=== PATIENT | female | born 1940 | race Caucasian/White ===

== ENCOUNTER → 2021-02-25 07:24 | Outpatient (REF) | payer OTHER, SELFPAY ==
--- NOTE | 2021-02-25 08:45 | CA_ITS ---
Acquisition Time: 2021-02-25 08:45:39 Total Exercise Time: 00:02:35 Test Indications: CP Medications: SEE CHART Protocol: EV Max HR: 155 BPM 109% of Pred: 142 BPM Max BP: 170/060 mmHG Max Work Load: 4.6 METS Exercise stress test with exercise 2 min 35 sec of Ev protocol, with moderate shortness of breath and request to stop exercise, no chest discomfort, with frequent PVCs, with normotensive and brisk chronotropic response to exercise, without EKG changes meeting criteria for ischemia. Test reviewed with Dr De Los Santos. Message sent to her PCP regading results and recommendation for pharm nuclear stress test to further eval for ischemia. Referred By: Anastasia Angel Overread By: TAMELA JUNG
[2021-02-25 11:28] LABS: Hematocrit 42.9 % (37-47); Hemoglobin 13.7 g/dl (12.0-16.0); Mean Corpuscular HGB Conc 31.9 g/dl (31.0-35.0); Mean Corpuscular Hemoglobin 31.2 pg (27.0-33.0); Mean Corpuscular Volume 97.7 fL (80-98); Mean Platelet Volume 11.2 fL (9.4-12.3); Platelet Count 311 X10*3/uL (160-400); Red Blood Count 4.39 X10*6/uL (4.20-5.50); Red Cell Distribution Width 15.7 % (11.0-16.0); White Blood Count 7.9 X10*3/uL (4.8-10.8)
[2021-02-25 11:35] LABS: B Type Natriuretic Peptide 45 pg/mL (<100)
[2021-02-25 11:58] LABS: TSH reflex Free T4 1.39 uIU/mL (0.32-4.0)
[2021-02-25 12:08] LABS: Alanine Aminotransferase 23 U/L (0-31); Albumin Level 4.1 g/dL (3.5-5.0); Alkaline Phosphatase 75 U/L (39-117); Anion Gap 14 (12-20); Aspartate Amino Transferase 45 U/L (5-31); Bilirubin Total 0.6 mg/dL (0.0-1.0); Blood Urea Nitrogen 12 mg/dL (9-16); Calcium 9.6 mg/dL (8.4-10.2); Carbon Dioxide 25 mmol/L (22-29); Chloride 108 mmol/L (96-108); Cholesterol 144 mg/dL; Estimated Glomerular Filt Rate > 60; Glucose Fasting 99 mg/dL (60-99); HDL Cholesterol 53 mg/dL; LDL Cholesterol Calculated 70 mg/dl; Potassium 4.6 mmol/L (3.3-5.1); Sodium 142 mmol/L (135-145); Total Protein 6.7 g/dL (6.5-8.0); Triglycerides 105 mg/dL
== END ==
LOC: HO.CARD 07:24
PROVIDERS: Visit Provider Internal Medicine
DX: R07.89 Other chest pain (principal); I10 Essential (primary) hypertension; E78.5 Hyperlipidemia, unspecified; R60.9 Edema, unspecified
CPT/HCPCS: 36415; 80053; 80061; 83880; 84443; 85027; 93017

== ENCOUNTER → 2021-03-18 09:13 | Outpatient (REF) | payer OTHER, SELFPAY ==
--- NOTE | ~2021-03-18 | NM_ITS ---
Lexiscan Myocardial perfusion study Indication: Chest pain, assess for coronary disease and ischemia Technique: The patient was brought in for a Lexiscan perfusion study on 03/18/2021 and was injected 0.4 mg of Lexiscan intravenously. Within a minute of this injection 35 mCi of sestamibi was given intravenously. Images were obtained using the SPECT gamma camera interlaced with the gating device. Images were obtained in supine position. Resting perfusion study was performed on 03/19/2021. Patient was administered 35 mCi of sestamibi intravenously at rest. Images were then obtained in supine position. Total DLP 196mGy-cm. Images were processed with the software and compared side to side in short axis, horizontal long axis and vertical long axis views. Findings: Raw acquisition was reviewed. Both arms by the patient's side. The stress perfusion study showed diminished tracer uptake along the inferolateral wall. With CT attenuation correction, there is significant improvement suggesting diaphragmatic attenuation artifact. The gated study shows normal LV systolic function with calculated LVEF of 74%. LV cavity is normal in size. The gated study shows normal wall thickening and contraction of segments. Resting study shows slightly diminished tracer uptake in the distal part of lateral wall. This improves with CT attenuation correction suggesting soft tissue or diaphragmatic artifact. Gating at rest reveals normal wall motion with ejection fraction at 63%. The findings are consistent with lateral/inferolateral perfusion defect that appears fixed and most likely artifactual. NM/NM amado perf SPECT rest & str Impression: 1. Myocardial perfusion imaging study shows no definitive evidence of any ischemia or infarction. Likely normal perfusion. 2. Gated LVEF is 74% during stress and 60% during rest. 3. Transient ischemic dilatation not present. EKG component of the test reported separately.
--- NOTE | 2021-03-18 09:16 | CA_ITS ---
Acquisition Time: 2021-03-18 09:31:13 Total Exercise Time: 00:02:00 Test Indications: CP Medications: SEE CHART Protocol: LEXISCAN Max HR: 114 BPM 80% of Pred: 142 BPM Max BP: 140/070 mmHG Max Work Load: 1.0 METS Pharmacological stress test with Lexiscan injection, while sitting and kicking her legs, without anginal symptoms, with isolated PVC, with normotensive response to injection, with nondiagnostic EKG for ischemia. Nuclear images pending. Test reviewed with Dr De Los Santos. Referred By: Anastasia Angel Overread By: TAMELA JUNG
== END ==
LOC: HO.CARD 09:13
PROVIDERS: Visit Provider Internal Medicine
DX: R07.89 Other chest pain (principal)
CPT/HCPCS: 78452; 93017; A9500; J0280; J2785

== ENCOUNTER 2021-10-01 07:57 | Outpatient (REF) | payer MEDICARE, SELFPAY ==
[2021-10-01 11:58] LABS: Hemoglobin 14.5 g/dl (12.0-16.0); Mean Corpuscular HGB Conc 30.9 g/dl (31.0-35.0); Mean Corpuscular Volume 100.4 fL (80.0-98.0); Platelet Count 363 X10*3/uL (160-400); Red Blood Count 4.68 X10*6/uL (4.20-5.50); Red Cell Distribution Width 14.5 % (11.0-16.0); White Blood Count 11.8 X10*3/uL (4.8-10.8)
[2021-10-01 12:15] LABS: Alanine Aminotransferase 26 U/L (0-31); Albumin Level 3.9 g/dL (3.5-5.0); Alkaline Phosphatase 89 U/L (39-117); Anion Gap 14 (12-20); Aspartate Amino Transferase 32 U/L (5-31); Bilirubin Total 0.9 mg/dL (0.0-1.0); Blood Urea Nitrogen 16 mg/dL (9-16); Calcium 9.5 mg/dL (8.4-10.2); Carbon Dioxide 25 mmol/L (22-29); Chloride 106 mmol/L (96-108); Cholesterol 165 mg/dL; Estimated Glomerular Filt Rate > 60; Glucose Fasting 101 mg/dL (60-99); HDL Cholesterol 55 mg/dL; LDL Cholesterol Calculated 87 mg/dl; Potassium 4.6 mmol/L (3.3-5.1); Sodium 140 mmol/L (135-145); Triglycerides 115 mg/dL
== END 2021-10-01 07:58 | disposition home or self-care (01) ==
LOC: HO.HMGCLDS 07:57
PROVIDERS: Visit Provider Internal Medicine
DX: E78.5 Hyperlipidemia, unspecified (principal); I10 Essential (primary) hypertension
CPT/HCPCS: 36415; 80053; 80061; 85027

== ENCOUNTER 2021-12-05 10:00 | Outpatient (RCR) | payer MEDICARE, SELFPAY ==
--- NOTE | 2021-11-15 10:55 | MHC.PT.EP ---
[facility] [place] Office [place] [facility] [place] Office [address] [place] [address] [phone] F: [phone] F: [phone] F: [phone] F: [phone] Physical Therapy Plan of Care Date of Evaluation: Date of Surgery: n/a Diagnosis: B leg weakness Assessment: Patient is a 81 year old female presenting to PT with complaints of B leg weakness. Pt reports onset of pain began a few years ago with worsening in the last 6 months with insidious onset. She presents today with impairments in balance, LE strength, gait mechanics. Pt's current occupation is retired, with baseline physical activities including ambulation, transfers, and stair negotiation. Pt expresses intermediate card tender goal of being able to walk, and is motivated to work towards this in PT. Clinical presentation today is most consistent with signs and sx associated with generalized LE weakness and deconditioning and pt will benefit from skilled PT to address the following problems and impairments noted upon evaluation: balance, LE strength, gait mechanics. These problems limit the patient with the following functional activities: ambulation, stair negotiation, and transfers. The prescribed treatment plan of care is medically necessary. Co-morbidities of HTN, hx B knee replacements, Hx hip replacement, hx back surgery were identified and taken into considerations of plan of care. Pt was educated on HEP, role of PT, prognosis, POC. Frequency and Duration: The patient will be seen 2 x week x 4 weeks Short Term Goals: Pt will demonstrate improved LE strength by 1/3 MMT for improved stability in 2 weeks. Pt will demonstrate ability to handling tech tandem x 20 sec B in 2 weeks for improved balance. Clip On Sunglasses Inspector Goals: Pt will demonstrate ability to perform STS from normal chair height with no use of UE in 4 weeks for improved ability to transfer. Pt will demonstrate ability to negotiate stairs with self reports of improvement in 4 weeks for improved access to her home. Pt will demonstrate improved LEFI score by 9 points in 4 weeks for improved overall functional mobility. Treatment Plan: Modalities to reduce pain, spasms and effusion. Manual therapy to restore motion and function. Therapeutic exercise to improve strength and flexibility. Neuromuscular re-education for posture and balance. Therapeutic activities to return to functional activities of daily living. Electronically signed by: Lizzie Goel, PT, DPT, ATC Please sign and return to therapist. Thank you for your referral.
--- NOTE | 2022-01-14 08:40 | MHC.PT.DC ---
[facility] [place] Office [place] Office [place] Office [address] [place] [address] [phone] F: [phone] F: [phone] F: [phone] F: [phone] Physical Therapy Discharge Report Diagnosis: B leg weakness Date of Surgery: n/a Date of Evaluation: 11/15/21 Date of Discharge: 01/14/22 Treatments to Date: 4 Cancellations to Date: 5 No Shows to Date: 0 Discharge Status: Discharge Summary: Pt had been put on 30 day hold due to family matters. 30 days has passed and pt has not reached out to be scheduled. Pt status unknown at this time. Electronically signed by: Lizzie Goel, PT, DPT, ATC Please sign and return to therapist. Thank you for your referral.
== END 2022-01-14 08:40 | disposition home or self-care (01) ==
LOC: HO.PTCHIC 10:00
PROVIDERS: PCP Internal Medicine; Visit Provider Internal Medicine
DX: R29.898 Other symptoms and signs involving the musculoskeletal system (principal)
CPT/HCPCS: 97110; 97112; 97161; 97530

== ENCOUNTER 2022-01-15 08:33 | Outpatient (REF) | payer MEDICARE, SELFPAY ==
[2022-01-15 11:41] LABS: Alanine Aminotransferase 20 U/L (0-31); Alkaline Phosphatase 92 U/L (39-117); Anion Gap 13 (12-20); Aspartate Amino Transferase 34 U/L (5-31); Bilirubin Total 0.9 mg/dL (0.0-1.0); Blood Urea Nitrogen 12 mg/dL (9-16); Calcium 9.4 mg/dL (8.4-10.2); Carbon Dioxide 26 mmol/L (22-29); Chloride 107 mmol/L (96-108); Estimated Glomerular Filt Rate > 60; Glucose Fasting 109 mg/dL (60-99); Potassium 4.4 mmol/L (3.3-5.1); Sodium 142 mmol/L (135-145); Total Protein 6.8 g/dL (6.5-8.0)
== END 2022-01-15 08:34 | disposition home or self-care (01) ==
LOC: HO.HMGCLDS 08:33
PROVIDERS: PCP Internal Medicine; Visit Provider Internal Medicine
DX: I10 Essential (primary) hypertension (principal)
CPT/HCPCS: 36415; 80053

== ENCOUNTER 2022-07-28 08:43 | Outpatient (REF) | payer MEDICARE, SELFPAY ==
[2022-07-28 11:16] LABS: MANUAL DIFF FLAG NO
[2022-07-28 11:31] LABS: Basophils Absolute Auto 0.1 X10*3/uL (0.0-0.2); Basophils Percent Auto 1.4 % (0-2); Eosinophils Absolute Auto 0.3 X10*3/uL (0.0-0.4); Eosinophils Percent Auto 3.9 % (0-4); Hematocrit 45.6 % (37.0-47.0); Hemoglobin 14.3 g/dl (12.0-16.0); Imm Gran Abs Auto 0.02 X10*3/uL (0.00-0.03); Imm Gran Pct Auto 0.3 % (0.0-0.4); Lymphocytes Absolute Auto 2.3 X10*3/uL (1.2-4.9); Lymphocytes Percent Auto 28.7 % (20-40); Mean Corpuscular HGB Conc 31.4 g/dl (31.0-35.0); Mean Corpuscular Hemoglobin 30.7 pg (27.0-33.0); Mean Corpuscular Volume 97.9 fL (80.0-98.0); Mean Platelet Volume 11.6 fL (9.4-12.3); Monocytes Absolute Auto 0.7 X10*3/uL (0.1-1.2); Monocytes Percent Auto 9.2 % (2-11); Neutrophils Absolute Auto 4.4 x10*3/uL (2.0-8.3); Neutrophils Percent Auto 56.5 % (45-73); Platelet Count 280 X10*3/uL (160-400); Red Blood Count 4.66 X10*6/uL (4.20-5.50); Red Cell Distribution Width 14.4 % (11.0-16.0); White Blood Count 7.9 X10*3/uL (4.8-10.8)
[2022-07-28 11:50] LABS: Alanine Aminotransferase 20 U/L (0-31); Alkaline Phosphatase 74 U/L (39-117); Anion Gap 13 (12-20); Aspartate Amino Transferase 29 U/L (5-31); Bilirubin Total 0.9 mg/dL (0.0-1.0); Blood Urea Nitrogen 13 mg/dL (9-16); Calcium 9.5 mg/dL (8.4-10.2); Carbon Dioxide 25 mmol/L (22-29); Chloride 107 mmol/L (96-108); Cholesterol 141 mg/dL; Estimated Glomerular Filt Rate > 60; Glucose Fasting 104 mg/dL (60-99); HDL Cholesterol 48 mg/dL; LDL Cholesterol Calculated 67 mg/dl; Potassium 4.3 mmol/L (3.3-5.1); Sodium 141 mmol/L (135-145); Total Protein 6.7 g/dL (6.5-8.0); Triglycerides 131 mg/dL
[2022-07-28 12:01] LABS: TSH reflex Free T4 1.56 uIU/mL (0.32-4.0)
== END 2022-07-28 08:44 | disposition home or self-care (01) ==
LOC: HO.HMGCLDS 08:43
PROVIDERS: PCP Internal Medicine; Visit Provider Internal Medicine
DX: E66.9 Obesity, unspecified (principal); E78.5 Hyperlipidemia, unspecified; I10 Essential (primary) hypertension
CPT/HCPCS: 36415; 80053; 80061; 84443; 85025

== ENCOUNTER 2022-10-02 09:35 | Outpatient (REF) | payer MEDICARE, SELFPAY ==
--- NOTE | ~2022-10-02 | XR_ITS ---
EXAMINATION: XR CHEST CLINICAL INFORMATION: Acute bronchitis, unspecified COMPARISON: None available. TECHNIQUE: 2 views of the chest were obtained. FINDINGS: No distinct airspace consolidation or pleural effusion. Pulmonary vascularity does not appear congested. The hilar regions appear unremarkable. There is multilevel thoracic spondylitic change without any distinct compression fractures. There is calcifications observed above the right humeral head in the distribution of the rotator cuff which can be seen in the setting of calcific tendinitis. XR/XR chest 2V IMPRESSION: No definite evidence for acute process. Other incidental findings as noted above.
== END 2022-10-02 09:36 | disposition home or self-care (01) ==
LOC: HO.HMGCX 09:35
PROVIDERS: PCP Internal Medicine; Visit Provider Internal Medicine
DX: J20.9 Acute bronchitis, unspecified (principal); R06.02 Shortness of breath
CPT/HCPCS: 71046

== ENCOUNTER 2023-01-28 08:15 | Outpatient (REF) | payer MEDICARE, SELFPAY ==
[2023-01-28 11:17] LABS: MANUAL DIFF FLAG NO
[2023-01-28 11:38] LABS: Basophils Absolute Auto 0.1 X10*3/uL (0.0-0.2); Basophils Percent Auto 1.1 % (0-2); Eosinophils Absolute Auto 0.3 X10*3/uL (0.0-0.4); Eosinophils Percent Auto 3.3 % (0-4); Hematocrit 43.3 % (37.0-47.0); Imm Gran Abs Auto 0.01 X10*3/uL (0.00-0.03); Imm Gran Pct Auto 0.1 % (0.0-0.4); Lymphocytes Absolute Auto 2.2 X10*3/uL (1.2-4.9); Lymphocytes Percent Auto 25.6 % (20-40); Mean Corpuscular HGB Conc 32.3 g/dl (31.0-35.0); Mean Corpuscular Hemoglobin 32.2 pg (27.0-33.0); Mean Corpuscular Volume 99.5 fL (80.0-98.0); Mean Platelet Volume 12.3 fL (9.4-12.3); Monocytes Absolute Auto 0.6 X10*3/uL (0.1-1.2); Monocytes Percent Auto 7.3 % (2-11); Neutrophils Absolute Auto 5.3 x10*3/uL (2.0-8.3); Neutrophils Percent Auto 62.6 % (45-73); Platelet Count 273 X10*3/uL (160-400); Red Blood Count 4.35 X10*6/uL (4.20-5.50); Red Cell Distribution Width 15.3 % (11.0-16.0); White Blood Count 8.4 X10*3/uL (4.8-10.8)
[2023-01-28 12:27] LABS: B Type Natriuretic Peptide 160 pg/mL (<100)
[2023-01-28 12:42] LABS: Alanine Aminotransferase 25 U/L (0-31); Albumin Level 3.8 g/dL (3.5-5.0); Alkaline Phosphatase 76 U/L (39-117); Anion Gap 15 (12-20); Aspartate Amino Transferase 33 U/L (5-31); Bilirubin Total 1.3 mg/dL (0.0-1.0); Blood Urea Nitrogen 14 mg/dL (9-16); Carbon Dioxide 24 mmol/L (22-29); Chloride 109 mmol/L (96-108); Cholesterol 141 mg/dL; Estimated Glomerular Filt Rate > 60; Glucose Fasting 100 mg/dL (60-99); HDL Cholesterol 55 mg/dL; LDL Cholesterol Calculated 67 mg/dl; Potassium 4.3 mmol/L (3.3-5.1); Sodium 144 mmol/L (135-145); TSH reflex Free T4 1.83 uIU/mL (0.32-4.0); Total Protein 6.8 g/dL (6.5-8.0); Triglycerides 97 mg/dL; Vitamin D 25-OH Total 44.1 ng/mL (>30)
== END 2023-01-28 08:16 | disposition home or self-care (01) ==
LOC: HO.HMGCLDS 08:15
PROVIDERS: PCP Internal Medicine; Visit Provider Internal Medicine
DX: Z00.00 Encounter for general adult medical examination without abnormal findings (principal); E55.9 Vitamin D deficiency, unspecified; E78.5 Hyperlipidemia, unspecified; L30.9 Dermatitis, unspecified; M19.90 Unspecified osteoarthritis, unspecified site; I10 Essential (primary) hypertension
CPT/HCPCS: 36415; 80053; 80061; 82306; 83880; 84443; 85025

== ENCOUNTER 2023-02-10 10:05 | Outpatient (AMB) | payer MEDICARE, SELFPAY ==
--- NOTE | 2023-02-10 10:07 | MHC.PC.OV ---
Vital Signs 02/10/23 10:08 Height 5 ft 4 in Weight 236 lb BMI 40.5 BP 118/66 Blood Pressure Location Lt brachial Position Sitting Pulse 63 Pulse Source Pulse Oximeter Pulse Oximetry (%) 99 Oxygen Delivery Method Room Air Intake Visit Reasons: 6 month Follow up HTN Intake Note: Pt is here today for 6 months follow up visit. Allergies ciprofloxacin [From Cipro] Allergy (Verified 02/10/23 10:09) vomiting oxybutynin Allergy (Verified 02/10/23 10:09) rash Sulfa (Sulfonamide Antibiotics) Allergy (Verified 02/10/23 10:09) rash Medication List - Last Reconciled 02/10/23 by Anastasia Angel MD amlodipine 5 mg PO DAILY atorvastatin 20 mg PO DAILY ketoconazole 2% 1 appl topical DAILY nystatin 1 appl topical BID spironolactone 12.5 mg (1/2 x 25 mg) PO DAILY triamcinolone acetonide 0.025% 1 appl topical BID valsartan 160 mg PO DAILY Tobacco use date assessed: 02/10/23 Fall risk assessment: No Falls in past year Last assessed Fall Risk: 02/10/23 Dental Screening Dental Screen Date: 02/10/23 Did you have a dental visit in the last 12 months?: Yes Did you have a dental problem in the last 6 months where you did not have access to dental care?: No Was dental information given to patient?: Patient has dentist HPI 6 month Follow up HTN HPI Details Pt presents for HTN and hyperlipid, stable on meds. Pt c/o night sweats on and off and occasional feeling of choking and the feeling of fullness in the neck when laying down. Patient denies cough or weight loss. She c/o HUTTON getting worse. [facility] Medical History Annual physical exam Broken wrist Burning chest pain Edema HTN (hypertension) Hyperlipidemia Leg weakness, bilateral Obesity Osteoarthritis Spinal stenosis of lumbar region Surgical History H/O colonoscopy H/O: hysterectomy History of carpal tunnel surgery History of right knee joint replacement History of total left knee replacement S/P cholecystectomy Family History Father Hypertension Mother Hypertension A-fib Sister Substance use disorder Social History Household Members Other:: lives alone, 2 daughters Housing: House Patient Tobacco Use Status: Former Tobacco user Quit Date: 36 years ago e-Cigarette/Vaping Use: Never Used Current occupational status: retired Cognitive needs: No Hearing needs: No Vision needs: Yes Questionnaire Thrive Questionnaire Date Thrive assessed: 08/13/22 AUDIT C Alcohol Use Questionnaire (AUDIT-C) 1. How often do you have a drink containing alcohol?: Never 3. How often do you have six or more drinks on one occasion?: Never Total Score: 0 DAVEY-7 AMB Questionnaire DAVEY-7 Date DAVEY - 7 assessed: 08/13/22 Source: Developed by Drs. Federico Wilburn, Mary Tillman, Claude Sullivan and colleagues, with an educational ezra from [employer]. Review of Systems Const All systems reviewed & are unremarkable except as noted in HPI and below Reports no additional complaints Eyes Reports no additional complaints ENT Reports no additional complaints Card Reports no additional complaints Resp Reports no additional complaints GI Reports no additional complaints Physical exam (Primary Care) Vital Signs: Last Vital Signs Pulse 63 02/10/23 10:08 BP 118/66 02/10/23 10:08 Pulse Ox 99 02/10/23 10:08 Oxygen Delivery Method Room Air 02/10/23 10:08 BMI result Body Mass Index 40.5 Tobacco/Smoking Status: Tobacco use Status Tobacco use date assessed 02/10/23 02/10/23 10:13 Patient Tobacco Use Status Former Tobacco user 02/10/23 10:13 e-Cigarette/Vaping Use Never Used 02/10/23 10:13 Thrive Assessment: Date of Thrive Assessment Date Thrive assessed 08/13/22 02/10/23 10:13 Const General: no acute distress HENMT Head: Yes normal to inspection Face and sinus: Yes normal facial exam Mouth: Normal oral and palatal mucosa present Neck Other: L supraclavicular region fullness, enlarged thyroid Neck: Yes supple Resp Effort & Inspection: normal respiratory effort Auscultation: diminished lung sounds Cardio Rhythm: abnormal rhythm regularly irregular Heart sounds: S1 normal heart sound present and S2 normal heart sound present GI Palpation (GI): Soft to palpation Extrem Other: +3 nonpitting edema bilaterally Assessment and Plan Assessment & Plan (1) Supraclavicular adenopathy: Code(s): R59.0 - Localized enlarged lymph nodes Plan: Obtain neck ultrasound (2) Shortness of breath: Code(s): R06.02 - Shortness of breath Plan: Obtain echocardiogram (3) Arrhythmia: Code(s): I49.9 - Cardiac arrhythmia, unspecified Plan: EKG showed NSR, frequent PVC's, bigeminy (4) CHF (congestive heart failure): Code(s): I50.9 - Heart failure, unspecified Plan: check Echo, add 12.5 mg Spironolactone (5) HTN (hypertension): Code(s): I10 - Essential (primary) hypertension Plan: cont meds. f/u 5 weeks Orders: Orders US soft tiss head and/or neck Today R59.0 - Localized enlarged lymph nodes XR chest 2V Today R06.02 - Shortness of breath CA echo transthoracic complete Today I49.9 - Cardiac arrhythmia, unspecified, I50.9 - Heart failure, unspecified, R06.02 - Shortness of breath ECG holter monitor 48 hour Today I49.9 - Cardiac arrhythmia, unspecified Medications: New spironolactone 12.5 mg (1/2 x 25 mg) PO DAILY 30 tabs 1RF Coding Level of Care Code Est Pt Level 4 (80380) Diagnoses Supraclavicular adenopathy R59.0 Shortness of breath R06.02 Arrhythmia I49.9 CHF (congestive heart failure) I50.9 HTN (hypertension) I10
[2023-02-10 10:08] VITALS: BP 118/66; PULSE 63; O2SAT 99; BMI 40.5
== END 2023-02-10 10:56 | disposition home or self-care (01) ==
PROVIDERS: Visit Provider Internal Medicine
DX: R59.0 Localized enlarged lymph nodes (principal); I11.0 Hypertensive heart disease with heart failure; I50.9 Heart failure, unspecified; R06.02 Shortness of breath; I49.9 Cardiac arrhythmia, unspecified
CPT/HCPCS: 99214

== ENCOUNTER 2023-02-10 10:55 | Outpatient (REF) | payer MEDICARE, SELFPAY ==
--- NOTE | ~2023-02-10 | XR_ITS ---
EXAMINATION: XR CHEST CLINICAL INFORMATION: Shortness of breath. COMPARISON: 10/02/2022 chest radiographs. TECHNIQUE: 2 views of the chest were obtained. FINDINGS: No significant abnormality is noted involving the heart, lungs, mediastinum, bony thorax or soft tissues. XR/XR chest 2V IMPRESSION: No acute cardiopulmonary process.
== END 2023-02-10 10:56 | disposition home or self-care (01) ==
LOC: HO.HMGCX 10:55
PROVIDERS: PCP Internal Medicine; Visit Provider Internal Medicine
DX: R06.02 Shortness of breath (principal)
CPT/HCPCS: 71046

== ENCOUNTER 2023-02-16 08:57 | Outpatient (REF) | payer MEDICARE, SELFPAY ==
--- NOTE | ~2023-02-16 | US_ITS ---
EXAMINATION: US SOFT TISSUE HEAD/NECK CLINICAL INFORMATION: Localized enlarged lymph nodes. Normal sized lump that comes and goes and gives patient choking sensation. COMPARISON: None available. TECHNIQUE: Linear transducer grayscale and color Doppler examination of the right neck per patient with left neck also scanned for comparison. FINDINGS: Limited imaging to the right neck level 3 where patient feels a lump there is no visible lymph node, mass or soft tissue abnormality. US/US soft tiss head and/or neck IMPRESSION: No ultrasound abnormality seen along the right neck where patient feels a palpable on and off lump. Further evaluation with limited CT neck or barium swallow if related to swallowing.
== END 2023-02-16 08:58 | disposition home or self-care (01) ==
LOC: HO.HMGCX 08:57
PROVIDERS: PCP Internal Medicine; Visit Provider Internal Medicine
DX: R59.0 Localized enlarged lymph nodes (principal)
CPT/HCPCS: 76536

== ENCOUNTER → 2023-03-11 09:26 | Outpatient (REF) | payer MEDICARE, SELFPAY ==
--- NOTE | 2023-03-11 09:28 | CA_ITS ---
Transthoracic Echocardiogram Patient (Last, First, Middle): Mary Ledezma, Gender: Female Date of : 1940 Age: 82 Procedure Date: 03/11/2023 Procedure Type: Transthoracic Echocardiogram Location: OP Height: 162.56 cm Weight: 104.33 kg BSA: 2.08 m2 Heart Rate: bpm BP: 150 / 60 mmHg Medical Appliance Maker: TO Referring MD: Anastasia Angel MD Symptoms: I49.9 - Cardiac arrhythmia, unspecified Study Quality: Fair ECG Rhythm: Sinus with PVCs Conclusions: - The left ventricular systolic function is normal. The calculated ejection fraction is 60% by biplane method. - Moderate focal hypertrophy of basal septum. - No obvious valvular pathology seen on this study. Findings Left Ventricle Normal left ventricular cavity size. The left ventricular systolic function is normal. The calculated ejection fraction is 60% by biplane method. There is no evidence of regional wall motion abnormalities. Diastolic function is normal for age. Moderate focal hypertrophy of basal septum. Right Ventricle Normal right ventricular cavity size and systolic function. Atria Both atria are normal in size. Aortic Valve There is a normal trileaflet aortic valve. There is no aortic valve stenosis. There is no aortic valve regurgitation. Mitral Valve The mitral valve appears normal. There is trace mitral valve regurgitation. There is no mitral valve stenosis. Pulmonic Valve The pulmonic valve is likely normal. Tricuspid Valve Normal tricuspid valve structure. There is trace tricuspid valve regurgitation. There is no evidence of pulmonary hypertension. Great Vessels The asc aorta is normal in size. Venous The inferior vena cava is normal in size and collapses greater than 50% with inspiration. Pericardium/Pleural There is no evidence of pericardial effusion. Prior Study Comparison No prior study available for comparison. Recommendations, Care & Conclusions No obvious valvular pathology seen on this study. Measurements 2D Linear Measurements IVSd: 1.47 0.6-0.9/0.6-1.0 cm LVIDd: 4.51 3.9-5.3/4.2-5.9 cm LVIDd Index: 2.17 2.4-3.2/2.2-3.1 cm/m2 LVIDs: 2.91 2.0-3.6 cm LVPWd: 1.06 0.7-1.1 cm LA Diam: 4.00 2.7-3.8/3.0-4.0 cm LAIDs Index: 1.92 1.5-2.3 cm/m2 LV Mass: 267.47 67-162/88-224 g LV Mass Index: 128.59 43-95/49-115 g/m2 LVOT Diam: 2.00 3.0+(-)1.3 cm 2D Systolic Function EF 4C: 60.00 >55% EF 2C: 63.60 >55% EF BiP: 60.30 >55% Mitral Valve MV Pk E: 0.69 MV PK A: 0.85 MV Decel Time: 160.00 E/A: 0.80 E'Lateral: 5.11 E/E' Lat: 13.60 PHT: 47.00 MVA PHT: 4.68 Decel Crook: 4.33 Aortic Valve AoV Pk Nickolas: 1.28 AoV Pk Grad: 7.00 LVOT LVOT Pk Nickolas: 0.77 LVOT Mn Nickolas: 0.51 LVOT VTI: 0.17 LVOT Pk Grad: 2.00 LVOT Mn Grad: 1.00 LVOT Diam: 2.00 LVOT Area: 3.14 Diastolic Function MV Pk E: 0.69 MV Pk A: 0.85 E/A: 0.80 E' Laterial: 5.11 E/E' Lat: 13.60 Right Ventricle TAPSE (mm): 20.90 TVS' Nickolas: 13.70 Tricuspid Valve RA Press: 3.00 Great Vessels Aorta Sinus of Valsalva: 2.75 2.0-3.5 cm Ao Asc: 3.30 2.1-3.4 cm Updated in Other Vendor System with Status of Final Kory Ortega MD electronically signed on 03/12/2023 4:51:12 PM with status of Final
--- NOTE | 2023-03-11 09:28 | HM_ITS ---
Conclusion: 1. Patient was monitored for total period of 2 days and 2 hours 2. Baseline was normal sinus rhythm with average heart of 90 beats per minute 3. Frequent mostly isolated PVCs noted with total burden of 16.8% 4. Occasional PACs noted 5. No significant pauses noted 6. Patient activated the counter 3 times without any clear symptoms associated which correlated with PVCs MTDD
== END ==
LOC: HO.CARD 09:26
PROVIDERS: PCP Internal Medicine; Visit Provider Internal Medicine
DX: I49.9 Cardiac arrhythmia, unspecified (principal); I50.9 Heart failure, unspecified; R06.02 Shortness of breath
CPT/HCPCS: 93225; 93306

== ENCOUNTER → 2023-03-11 09:28 | Outpatient (BNV) | payer MEDICARE, SELFPAY | PROVIDERS: PCP Internal Medicine; Visit Provider Internal Medicine | DX: I49.3 Ventricular premature depolarization (principal) | CPT/HCPCS: 93227; 93306 ==

== ENCOUNTER 2023-03-31 08:55 | Outpatient (AMB) | payer MEDICARE, SELFPAY ==
--- NOTE | 2023-03-31 08:55 | A.OFFPC_ITS ---
Vital Signs 03/31/23 08:56 Height 5 ft 4 in Weight 241 lb BMI 41.4 BP 118/66 Blood Pressure Location Lt brachial Position Sitting Pulse 58 Pulse Source Pulse Oximeter Pulse Oximetry (%) 97 Oxygen Delivery Method Room Air Intake Visit Reasons: 5 week fu Intake Note: Pt is here today for 5 weeks follow up visit. Allergies ciprofloxacin [From Cipro] Allergy (Verified 03/31/23 08:58) vomiting oxybutynin Allergy (Verified 03/31/23 08:58) rash Sulfa (Sulfonamide Antibiotics) Allergy (Verified 03/31/23 08:58) rash spironolactone Adverse Reaction (Intermediate, Verified 03/31/23 09:19) dry mouth Medication List - Last Reconciled 03/31/23 by Anastasia Angel MD amlodipine 5 mg PO DAILY atorvastatin 20 mg PO DAILY ketoconazole 2% 1 appl topical DAILY nystatin 1 appl topical BID triamcinolone acetonide 0.025% 1 appl topical BID valsartan 160 mg PO DAILY Tobacco use date assessed: 02/10/23 HPI 5 week fu HPI Details Pt presents for f/u of HTN, hyperlipid. Pt c/o chronic LBP worse when walking. Patient has been sleeping in the recliner in reports worsening lower extremity swelling. She could not tolerate spironolactone developed dry mouth and dizziness. Echocardiogram and Holter monitor were without significant abnormalities. [facility] Medical History (Updated 03/31/23 @ 09:47 by Anastasia Angel MD) Leg weakness, bilateral Annual physical exam Spinal stenosis of lumbar region Burning chest pain Edema Obesity Hyperlipidemia Osteoarthritis HTN (hypertension) Broken wrist Surgical History H/O colonoscopy History of carpal tunnel surgery History of right knee joint replacement History of total left knee replacement H/O: hysterectomy S/P cholecystectomy Family History Father Hypertension Mother Hypertension A-fib Sister Substance use disorder Social History Household Members Other:: lives alone, 2 daughters Housing: House Patient Tobacco Use Status: Former Tobacco user Quit Date: 36 years ago e-Cigarette/Vaping Use: Never Used Current occupational status: retired Cognitive needs: No Hearing needs: No Vision needs: Yes Questionnaire Thrive Questionnaire Date Thrive assessed: 08/13/22 DAVEY-7 AMB Questionnaire DAVEY-7 Date DAVEY - 7 assessed: 08/13/22 Source: Developed by Drs. Federico Wilburn, Mary Tillman, Claude Sullivan and colleagues, with an educational ezra from [employer]. Review of Systems Const All systems reviewed & are unremarkable except as noted in HPI and below Reports no additional complaints Eyes Reports no additional complaints ENT Reports no additional complaints Card Reports no additional complaints Resp Reports no additional complaints GI Reports no additional complaints Reports no additional complaints Physical exam (Primary Care) Vital Signs: Last Vital Signs Pulse 58 03/31/23 08:56 BP 118/66 03/31/23 08:56 Pulse Ox 97 03/31/23 08:56 Oxygen Delivery Method Room Air 03/31/23 08:56 BMI result Body Mass Index 41.4 Tobacco/Smoking Status: Tobacco use Status Tobacco use date assessed 02/10/23 03/31/23 08:56 Patient Tobacco Use Status Former Tobacco user 03/31/23 08:56 e-Cigarette/Vaping Use Never Used 03/31/23 08:56 Thrive Assessment: Date of Thrive Assessment Date Thrive assessed 08/13/22 03/31/23 08:56 Const General: no acute distress HENMT Head: Yes normal to inspection Ears: hearing grossly normal bilaterally Face and sinus: Yes normal facial exam Mouth: Normal oral and palatal mucosa present Throat: Yes posterior oropharynx normal Eyes General: appearance normal, both eyes and all related structures Neck Neck: Yes no lymphadenopathy and Yes supple Resp Effort & Inspection: normal respiratory effort Auscultation: clear to auscultation bilaterally Cardio Rhythm: regular rhythm Heart sounds: S1 normal heart sound present and S2 normal heart sound present GI Inspection: Yes normal to inspection Palpation (GI): Soft to palpation Percussion: Yes normal to percussion Auscultation: normal bowel sounds Extrem Other: 2+ pitting edema bilaterally Assessment and Plan Assessment & Plan (1) CHF (congestive heart failure): Comment: Echo 03/11 nl EF, no valve abnormalities, 2 days Holter occasional PVCs. Code(s): I50.9 - Heart failure, unspecified Plan: Continue valsartan (2) Spinal stenosis of lumbar region: Code(s): M48.061 - Spinal stenosis, lumbar region without neurogenic claudication Plan: Follow-up with pain management, patient was advised to increase physical activity and lose weight (3) Hyperlipidemia: Code(s): E78.5 - Hyperlipidemia, unspecified Plan: Continue statin (4) HTN (hypertension): Code(s): I10 - Essential (primary) hypertension Plan: Blood pressure is low and amlodipine will be decreased to 2.5 mg a day. Follow- up in 3 months Medications: New amlodipine 2.5 mg PO DAILY 90 tabs 1RF Discontinued amlodipine Discontinued Reason: Doctor's Order 5 mg PO DAILY 90 tabs 3RF Coding Level of Care Code Est Pt Level 4 (79051) Diagnoses CHF (congestive heart failure) I50.9 Spinal stenosis of lumbar region M48.061 Hyperlipidemia E78.5 HTN (hypertension) I10
[2023-03-31 08:56] VITALS: BP 118/66; PULSE 58; O2SAT 97; BMI 41.4
== END 2023-03-31 09:32 | disposition home or self-care (01) ==
PROVIDERS: PCP Internal Medicine; Visit Provider Internal Medicine
DX: I11.0 Hypertensive heart disease with heart failure (principal); I50.9 Heart failure, unspecified; M48.061 Spinal stenosis, lumbar region without neurogenic claudication; E78.5 Hyperlipidemia, unspecified
CPT/HCPCS: 99214

== ENCOUNTER 2023-06-18 09:19 | Outpatient (AMB) | payer MEDICARE, SELFPAY ==
[2023-06-18 11:06] VITALS: BP 140/80; PULSE 94; TEMP 36.6; O2SAT 97; BMI 40.8
--- NOTE | 2023-06-18 11:06 | MHC.OFFWIV ---
Intake Vital Signs 06/18/23 11:06 Height 5 ft 4 in Weight 238 lb BMI 40.8 BP 140/80 H Blood Pressure Location Lt brachial Position Sitting Pulse 94 Pulse Source Pulse Oximeter Temp 97.8 F Pulse Oximetry (%) 97 Oxygen Delivery Method Room Air Intake Visit Reasons: EP, scrape to right hand Intake Note: pt is here today for scrape to rt hand fell on thursday Patient Tobacco Use Status: Former Tobacco user Quit Date: 36 years ago Allergies ciprofloxacin [From Cipro] Allergy (Verified 06/18/23 11:07) vomiting oxybutynin Allergy (Verified 06/18/23 11:07) rash Sulfa (Sulfonamide Antibiotics) Allergy (Verified 06/18/23 11:07) rash spironolactone Adverse Reaction (Intermediate, Verified 06/18/23 11:07) dry mouth Do you need a note to return to daycare/school/sports/work: No HPI HPI Comments History of Present Illness Details This is a an 82-year-old female with a past medical history of CHF, hypertension and hyperlipidemia presenting for evaluation of wound to her right hand that occurred on Thursday. Patient states she was walking to [employer] when she tripped and fell to the ground causing a skin tear to her right hand. Patient comes today because she is concerned that it may be infected. Patient has been using bacitracin daily. [facility] Medical History Leg weakness, bilateral Annual physical exam Spinal stenosis of lumbar region Burning chest pain Edema Obesity Hyperlipidemia Osteoarthritis HTN (hypertension) Broken wrist Surgical History H/O colonoscopy H/O: hysterectomy History of carpal tunnel surgery History of right knee joint replacement History of total left knee replacement S/P cholecystectomy Family History Father Hypertension Mother Hypertension A-fib Sister Substance use disorder Social History Household Members Other:: lives alone, 2 daughters Housing: House Patient Tobacco Use Status: Former Tobacco user Quit Date: 36 years ago e-Cigarette/Vaping Use: Never Used Current occupational status: retired Cognitive needs: No Hearing needs: No Vision needs: Yes Review of Systems Const All systems reviewed & are unremarkable except as noted in HPI and below Denies chills and Denies fever(s) Musc Reports no additional complaints Skin/Breast Reports non-healing lesions, Reports erythema and Reports wounds (right hand) Neuro Reports no additional complaints Physical Exam Vital Signs: Last Vital Signs Temp 97.8 F 06/18/23 11:06 Pulse 94 06/18/23 11:06 BP 140/80 H 06/18/23 11:06 Pulse Ox 97 06/18/23 11:06 Oxygen Delivery Method Room Air 06/18/23 11:06 BMI result Body Mass Index 40.8 Const General: cooperative, healthy appearing, comfortable and no acute distress Nutritional Appearance: average body habitus Orientation/consciousness: patient oriented x3 Limitations: no limitations Skin Other: 4cm x 2.5cm skin tear located on the dorsal surface of the right hand overlying the 2nd metacarpal with surrounding ecchymosis; no erythema, edema, exudates or tenderness to examination. Wounds: wounds noted (right hand dorsal surface) Neuro General: patient oriented x3 Extrem Right upper extremity: Extremity exam: right hand (wound as previously noted; ROM intact right wrist and digits of right hand.) Details: normal capillary refill, neuromotor exam normal and neurosensory exam normal Assessment & Plan Assessment & Plan (1) Skin tear of right hand without complication: Code(s): S61.411A - Laceration without foreign body of right hand, initial encounter Plan: Patient will continue keeping this lesion clean with soap and water daily and applying Bacitracin twice daily. There is no active infection noted on clinical examination and therefore oral antibiotics are not warranted at this time. Coding Level of Care Code Est Pt Level 3 (03620) Diagnoses Skin tear of right hand without complication S61.411A Time Spent (min) 20
== END 2023-06-18 11:48 | disposition home or self-care (01) ==
PROVIDERS: PCP Internal Medicine; Visit Provider Physician Assistant
DX: S61.411A Laceration without foreign body of right hand, initial encounter (principal)
CPT/HCPCS: 99213

== ENCOUNTER 2023-07-02 10:11 | Outpatient (AMB) | payer MEDICARE, SELFPAY ==
[2023-07-02 10:15] VITALS: BP 120/78; PULSE 86; O2SAT 97; BMI 40.5
--- NOTE | 2023-07-02 10:15 | A.OFFPC_ITS ---
Vital Signs 07/02/23 10:15 Height 5 ft 4 in Weight 236 lb BMI 40.5 BP 120/78 Blood Pressure Location Lt brachial Position Sitting Pulse 86 Pulse Source Pulse Oximeter Pulse Oximetry (%) 97 Oxygen Delivery Method Room Air Intake Visit Reasons: 3 month follow up Intake Note: Pt is here today for 3 months follow up visit. Allergies ciprofloxacin [From Cipro] Allergy (Verified 07/02/23 10:15) vomiting oxybutynin Allergy (Verified 06/18/23 11:07) rash Sulfa (Sulfonamide Antibiotics) Allergy (Verified 07/02/23 10:15) rash gabapentin Adverse Reaction (Intermediate, Verified 07/02/23 11:03) Dizziness spironolactone Adverse Reaction (Intermediate, Verified 07/02/23 10:15) dry mouth Medication List - Last Reconciled 07/02/23 by Anastasia Angel MD amlodipine 2.5 mg PO DAILY atorvastatin 20 mg PO DAILY ketoconazole 2% 1 appl topical DAILY nystatin 1 appl topical BID triamcinolone acetonide 0.025% 1 appl topical BID valsartan 160 mg PO BID Tobacco use date assessed: 07/02/23 Fall risk assessment: 1 Fall in past year Last assessed Fall Risk: 07/02/23 Dental Screening Dental Screen Date: 07/02/23 Did you have a dental visit in the last 12 months?: Yes Did you have a dental problem in the last 6 months where you did not have access to dental care?: No Was dental information given to patient?: Patient has dentist HPI 3 month follow up HPI Details Pt presents for f/u HTN, HFpEF, lumbar spinal stenosis, getting cortisone inj. PFSH Medical History Leg weakness, bilateral Annual physical exam Spinal stenosis of lumbar region Burning chest pain Edema Obesity Hyperlipidemia Osteoarthritis HTN (hypertension) Broken wrist Surgical History H/O colonoscopy H/O: hysterectomy History of carpal tunnel surgery History of right knee joint replacement History of total left knee replacement S/P cholecystectomy Family History Father Hypertension Mother Hypertension A-fib Sister Substance use disorder Social History Household Members Other:: lives alone, 2 daughters Housing: House Patient Tobacco Use Status: Former Tobacco user Quit Date: 36 years ago e-Cigarette/Vaping Use: Never Used Current occupational status: retired Cognitive needs: No Hearing needs: No Vision needs: Yes Questionnaire Thrive Questionnaire Date Thrive assessed: 08/13/22 DAVEY-7 AMB Questionnaire DAVEY-7 Date DAVEY - 7 assessed: 08/13/22 Source: Developed by Drs. Federico Wilburn, Mary Tillman, Claude Sullivan and colleagues, with an educational ezra from [employer]. Review of Systems Const All systems reviewed & are unremarkable except as noted in HPI and below Reports no additional complaints Eyes Reports no additional complaints ENT Reports no additional complaints Card Reports no additional complaints Resp Reports no additional complaints GI Reports no additional complaints Physical exam (Primary Care) Vital Signs: Last Vital Signs Pulse 86 07/02/23 10:15 BP 120/78 07/02/23 10:15 Pulse Ox 97 07/02/23 10:15 Oxygen Delivery Method Room Air 07/02/23 10:15 BMI result Body Mass Index 40.5 Tobacco/Smoking Status: Tobacco use Status Tobacco use date assessed 07/02/23 07/02/23 10:26 Patient Tobacco Use Status Former Tobacco user 07/02/23 10:15 e-Cigarette/Vaping Use Never Used 07/02/23 10:15 Thrive Assessment: Date of Thrive Assessment Date Thrive assessed 08/13/22 07/02/23 10:15 Const General: no acute distress HENMT Head: Yes normal to inspection Mouth: Normal oral and palatal mucosa present Neck Neck: Yes supple Resp Effort & Inspection: normal respiratory effort Auscultation: clear to auscultation bilaterally Cardio Rhythm: regular rhythm Heart sounds: S1 normal heart sound present and S2 normal heart sound present GI Inspection: Yes normal to inspection Palpation (GI): Soft to palpation Percussion: Yes normal to percussion Auscultation: normal bowel sounds Assessment and Plan Assessment & Plan (1) CHF (congestive heart failure): Comment: Echo 03/11 nl EF, no valve abnormalities, 2 days Holter occasional PVCs. Code(s): I50.9 - Heart failure, unspecified Plan: Increase losartan to 160 twice a day check basic metabolic panel in 1 week, patient was advised to monitor her weight daily (2) HTN (hypertension): Code(s): I10 - Essential (primary) hypertension Plan: Increase losartan to 160 twice a day continue amlodipine (3) Hyperlipidemia: Code(s): E78.5 - Hyperlipidemia, unspecified Plan: Continue atorvastatin (4) Spinal stenosis of lumbar region: Code(s): M48.061 - Spinal stenosis, lumbar region without neurogenic claudication Plan: Follow-up with neurosurgeon/pain management Orders: Orders Comprehensive Met. Panel 1 Week E78.5 - Hyperlipidemia, unspecified, I10 - Essential (primary) hypertension, I50.9 - Heart failure, unspecified, M48.061 - Spinal stenosis, lumbar region without neurogenic claudication Medications: Changed From valsartan 160 mg PO DAILY 90 tabs 3RF To valsartan 160 mg PO BID 180 tabs 3RF Discontinued gabapentin Discontinued Reason: Doctor's Order 300 mg PO BID 60 caps 0RF Coding Level of Care Code Est Pt Level 4 (42372) Diagnoses CHF (congestive heart failure) I50.9 HTN (hypertension) I10 Hyperlipidemia E78.5 Spinal stenosis of lumbar region M48.061
== END 2023-07-02 11:06 | disposition home or self-care (01) ==
PROVIDERS: PCP Internal Medicine; Visit Provider Internal Medicine
DX: I11.0 Hypertensive heart disease with heart failure (principal); I50.9 Heart failure, unspecified; E78.5 Hyperlipidemia, unspecified; M48.061 Spinal stenosis, lumbar region without neurogenic claudication
CPT/HCPCS: 99214

== ENCOUNTER 2023-07-09 09:02 | Outpatient (REF) | payer MEDICARE, SELFPAY ==
[2023-07-09 12:31] LABS: Alanine Aminotransferase 25 U/L (0-31); Albumin Level 3.8 g/dL (3.5-5.0); Alkaline Phosphatase 81 U/L (39-117); Anion Gap 13 (12-20); Aspartate Amino Transferase 29 U/L (5-31); Bilirubin Total 0.8 mg/dL (0.0-1.0); Blood Urea Nitrogen 14 mg/dL (9-16); Calcium 9.3 mg/dL (8.4-10.2); Carbon Dioxide 28 mmol/L (22-29); Chloride 108 mmol/L (96-108); Estimated Glomerular Filt Rate > 60; Glucose Random 84 mg/dL (60-115); Potassium 4.2 mmol/L (3.3-5.1); Sodium 145 mmol/L (135-145); Total Protein 6.8 g/dL (6.5-8.0)
== END 2023-07-09 09:03 | disposition home or self-care (01) ==
LOC: HO.HMGCLDS 09:02
PROVIDERS: PCP Internal Medicine; Visit Provider Internal Medicine
DX: I11.0 Hypertensive heart disease with heart failure (principal); I50.9 Heart failure, unspecified; E78.5 Hyperlipidemia, unspecified; M48.061 Spinal stenosis, lumbar region without neurogenic claudication
CPT/HCPCS: 36415; 80053

== ENCOUNTER 2023-08-07 10:52 | Outpatient (AMB) | payer MEDICARE, SELFPAY ==
--- NOTE | 2023-08-07 10:57 | A.OFFPC_ITS ---
Vital Signs 08/07/23 10:58 Height 5 ft 4 in Weight 239 lb BMI 41.0 BP 104/70 Blood Pressure Location Lt brachial Position Sitting Pulse 78 Pulse Source Pulse Oximeter Pulse Oximetry (%) 98 Oxygen Delivery Method Room Air Intake Visit Reasons: 1 month follow up Intake Note: Pt is here today for 1 month follow up visit. Allergies ciprofloxacin [From Cipro] Allergy (Verified 08/07/23 11:00) vomiting oxybutynin Allergy (Verified 08/07/23 11:00) rash Sulfa (Sulfonamide Antibiotics) Allergy (Verified 08/07/23 11:00) rash gabapentin Adverse Reaction (Intermediate, Verified 08/07/23 11:00) Dizziness spironolactone Adverse Reaction (Intermediate, Verified 08/07/23 11:00) dry mouth Medication List - Last Reconciled 08/07/23 by Anastasia Angel MD amlodipine 2.5 mg PO DAILY atorvastatin 20 mg PO DAILY ketoconazole 2% 1 appl topical DAILY nystatin 1 appl topical BID triamcinolone acetonide 0.025% 1 appl topical BID valsartan 160 mg PO BID Tobacco use date assessed: 08/07/23 HPI 1 month follow up HPI Details Pt presents for HTN and hyperlipidemia, controlled on current medications PFSH Medical History Leg weakness, bilateral Annual physical exam Spinal stenosis of lumbar region Burning chest pain Edema Obesity Hyperlipidemia Osteoarthritis HTN (hypertension) Broken wrist Surgical History H/O colonoscopy History of carpal tunnel surgery History of right knee joint replacement History of total left knee replacement H/O: hysterectomy S/P cholecystectomy Family History Father Hypertension Mother Hypertension A-fib Sister Substance use disorder Social History Household Members Other:: lives alone, 2 daughters Housing: House Patient Tobacco Use Status: Former Tobacco user Quit Date: 36 years ago e-Cigarette/Vaping Use: Never Used Current occupational status: retired Cognitive needs: No Hearing needs: No Vision needs: Yes Questionnaire Thrive Questionnaire Date Thrive assessed: 08/13/22 DAVEY-7 AMB Questionnaire DAVEY-7 Date DAVEY - 7 assessed: 08/13/22 Source: Developed by Drs. Federico Wilburn, Mary Tillman, Claude hernadez nd colleagues, with an educational ezra from [employer]. Review of Systems Const All systems reviewed & are unremarkable except as noted in HPI and below Reports no additional complaints Eyes Reports no additional complaints ENT Reports no additional complaints Card Reports no additional complaints Resp Reports no additional complaints GI Reports no additional complaints Reports no additional complaints Physical exam (Primary Care) Vital Signs: Last Vital Signs Pulse 78 08/07/23 10:58 BP 104/70 08/07/23 10:58 Pulse Ox 98 08/07/23 10:58 Oxygen Delivery Method Room Air 08/07/23 10:58 BMI result Body Mass Index 41.0 Tobacco/Smoking Status: Tobacco use Status Tobacco use date assessed 08/07/23 08/07/23 11:01 Patient Tobacco Use Status Former Tobacco user 08/07/23 11:01 e-Cigarette/Vaping Use Never Used 08/07/23 11:01 Thrive Assessment: Date of Thrive Assessment Date Thrive assessed 08/13/22 08/07/23 11:01 Const General: no acute distress Eyes General: appearance normal, both eyes and all related structures Resp Effort & Inspection: normal respiratory effort Auscultation: clear to auscultation bilaterally Cardio Rhythm: regular rhythm Heart sounds: S1 normal heart sound present and S2 normal heart sound present GI Inspection: Yes normal to inspection Palpation (GI): Soft to palpation Percussion: Yes normal to percussion Auscultation: normal bowel sounds Assessment and Plan Assessment & Plan (1) HTN (hypertension): Code(s): I10 - Essential (primary) hypertension Plan: Continue current medications low-sodium diet (2) Hyperlipidemia: Code(s): E78.5 - Hyperlipidemia, unspecified Plan: Continue atorvastatin (3) Obesity: Code(s): E66.9 - Obesity, unspecified Plan: Increase physical activity weight loss discussed with the patient. Follow-up in November with a fasting labs before Orders: Orders Lipid Panel 4 Months E66.9 - Obesity, unspecified, E78.5 - Hyperlipidemia, unspecified, I10 - Essential (primary) hypertension Comprehensive [place]. Panel Fast 4 Months E66.9 - Obesity, unspecified, E78.5 - Hyperlipidemia, unspecified, I10 - Essential (primary) hypertension Medications: Refilled valsartan 160 mg PO BID 180 tabs 3RF Coding Level of Care Code Est Pt Level 3 (01935) Diagnoses HTN (hypertension) I10 Hyperlipidemia E78.5 Obesity E66.9
[2023-08-07 10:58] VITALS: BP 104/70; PULSE 78; O2SAT 98; BMI 41.0
== END 2023-08-07 15:40 | disposition home or self-care (01) ==
PROVIDERS: PCP Internal Medicine; Visit Provider Internal Medicine
DX: I10 Essential (primary) hypertension (principal); E78.5 Hyperlipidemia, unspecified; E66.9 Obesity, unspecified; Z68.41 Body mass index [BMI] 40.0-44.9, adult
CPT/HCPCS: 99213

== ENCOUNTER 2024-02-08 07:36 | Outpatient (REF) | payer MEDICARE, SELFPAY ==
[2024-02-08 10:34] LABS: Alanine Aminotransferase 29 U/L (0-31); Albumin Level 3.7 g/dL (3.5-5.0); Alkaline Phosphatase 81 U/L (39-117); Anion Gap 13 (12-20); Aspartate Amino Transferase 26 U/L (5-31); Blood Urea Nitrogen 15 mg/dL (9-16); Calcium 9.5 mg/dL (8.4-10.2); Carbon Dioxide 26 mmol/L (22-29); Chloride 107 mmol/L (96-108); Cholesterol 147 mg/dL (<200); Estimated Glomerular Filt Rate > 60; Glucose Fasting 95 mg/dL (60-99); HDL Cholesterol 54 mg/dL (>40); LDL Cholesterol Calculated 76 mg/dL (<100); Potassium 4.2 mmol/L (3.3-5.1); Sodium 142 mmol/L (135-145); Total Protein 6.7 g/dL (6.5-8.0); Triglycerides 85 mg/dL (<150)
== END 2024-02-08 07:37 | disposition home or self-care (01) ==
LOC: HO.HMGCLDS 07:36
PROVIDERS: PCP Internal Medicine; Visit Provider Internal Medicine
DX: E66.9 Obesity, unspecified (principal); E78.5 Hyperlipidemia, unspecified; I10 Essential (primary) hypertension
CPT/HCPCS: 36415; 80053; 80061

== ENCOUNTER 2024-02-12 11:42 | Outpatient (AMB) | payer MEDICARE, SELFPAY ==
[2024-02-12 11:46] VITALS: BP 120/76; PULSE 90; O2SAT 97; BMI 39.8
--- NOTE | 2024-02-12 11:46 | MHC.PC.OV ---
Vital Signs 02/12/24 11:46 Height 5 ft 4 in Weight 232 lb BMI 39.8 BP 120/76 Blood Pressure Location Lt brachial Position Sitting Pulse 90 Pulse Source Pulse Oximeter Pulse Oximetry (%) 97 Oxygen Delivery Method Room Air Intake Visit Reasons: Follow up visit Intake Note: Pt is here today for a follow up visit on labs.Pt states that she needs a refill on Atorvastatin. Allergies ciprofloxacin [From Cipro] Allergy (Verified 02/12/24 11:47) vomiting oxybutynin Allergy (Verified 02/12/24 11:47) rash Sulfa (Sulfonamide Antibiotics) Allergy (Verified 02/12/24 11:47) rash gabapentin Adverse Reaction (Intermediate, Verified 02/12/24 11:47) Dizziness spironolactone Adverse Reaction (Intermediate, Verified 02/12/24 11:47) dry mouth Medication List - Last Reconciled 02/12/24 by Anastasia Angel MD amlodipine 2.5 mg PO DAILY atorvastatin 20 mg PO DAILY ketoconazole 2% 1 appl topical DAILY nystatin 1 appl topical BID triamcinolone acetonide 0.025% 1 appl topical BID valsartan 320 mg PO DAILY Tobacco use date assessed: 02/12/24 Fall risk assessment: No Falls in past year Last assessed Fall Risk: 02/12/24 Dental Screening Dental Screen Date: 02/12/24 Did you have a dental visit in the last 12 months?: Yes Did you have a dental problem in the last 6 months where you did not have access to dental care?: No Was dental information given to patient?: Patient has dentist HPI Follow up visit HPI Details Pt presents for f/u HTN and hyperlipid, stable on meds. Patient has been getting cortisone injection for lumbar spine stenosis and getting relief for 2-3 months at the time. [facility] Medical History Leg weakness, bilateral Annual physical exam Spinal stenosis of lumbar region Burning chest pain Edema Obesity Hyperlipidemia Osteoarthritis HTN (hypertension) Broken wrist Surgical History H/O colonoscopy History of carpal tunnel surgery History of right knee joint replacement History of total left knee replacement H/O: hysterectomy S/P cholecystectomy Family History Father Hypertension Mother Hypertension A-fib Sister Substance use disorder Social History Household Members Other:: lives alone, 2 daughters Housing: House Patient Tobacco Use Status: Former Tobacco user e-Cigarette/Vaping Use: Never Used service: No Current occupational status: retired Cognitive needs: No Hearing needs: No Vision needs: Yes Questionnaire PHQ-9 Over the last 2 weeks, how often have you been bothered by any of the following problems? 1. Little interest or pleasure in doing things: not at all 2. Feeling down, depressed, or hopeless: not at all 3. Trouble falling or staying asleep, or sleeping too much: not at all 4. Feeling tired or having little energy: not at all 5. Poor appetite or overeating: not at all 6. Feeling bad about yourself - or that you are a failure or have let yourself or your family down: not at all 7. Trouble concentrating on things, such as reading the newspaper or watching television: not at all 8. Moving or speaking so slowly that other people could have noticed. Or the opposite - being so fidgety or restless that you have been moving around a lot more than usual: not at all 9. Thoughts that you would be better off or of hurting yourself in some way: not at all Total score: 0 Depression Screening Interpretation: Negative Depression Screening Done: Yes Source: Developed by Drs. Federico Wilburn, Mary Tillman, Claude Sullivan and colleagues, with an educational ezra from [employer]. Thrive Questionnaire Date Thrive assessed: 02/12/24 I am a: Patient What is your living situation today?: I have a steady place to live Within the past 12 months, did the food you bought not last and you didn't have the money to get more?: Never true Within the past 12 months, did you worry whether your food would run out before you got money to buy more?: Never true Do you have trouble paying for medicines?: No Do you have trouble getting transportation to medical appointments?: No Do you have trouble paying your heating and electricity bill?: No Do you have trouble taking care of your child, family member or friend?: No Do you have trouble with day-to-day activities such as bathing, preparing meals, shopping, managing finances, etc.?: No Are you currently unemployed and looking for a job?: No Are you interested in more education?: No Please select the resources that you would like help with: None THRIVE Score: 0 AUDIT C Alcohol Use Questionnaire (AUDIT-C) 1. How often do you have a drink containing alcohol?: Never 3. How often do you have six or more drinks on one occasion?: Never Total Score: 0 DAVEY-7 AMB Questionnaire DAVEY-7 Date DAVEY - 7 assessed: 02/12/24 Feeling nervous, anxious, or on edge: 0 = Not at all Not being able to stop or control worryin = Not at all Worrying too much about different things: 0 = Not at all Trouble relaxin = Not at all Being so restless that it is hard to sit still: 0 = Not at all Becoming easily annoyed or irritable: 0 = Not at all Feeling afraid as if something awful might happen: 0 = Not at all Total DAVEY-7 score (0-4 normal; 5-9 mild; 10-14 moderate; 15-21 severe): 0 Source: Developed by Drs. Federico Wilburn, Mary Tillman, Claude Sullivan and colleagues, with an educational ezra from [employer]. Review of Systems Const All systems reviewed & are unremarkable except as noted in HPI and below Eyes Reports no additional complaints ENT Reports no additional complaints Card Reports no additional complaints Resp Reports no additional complaints GI Reports no additional complaints Reports no additional complaints Physical exam (Primary Care) Vital Signs: Last Vital Signs Pulse 90 02/12/24 11:46 BP 120/76 02/12/24 11:46 Pulse Ox 97 02/12/24 11:46 Oxygen Delivery Method Room Air 02/12/24 11:46 BMI result Body Mass Index 39.8 Tobacco/Smoking Status: Tobacco use Status Tobacco use date assessed 02/12/24 02/12/24 11:52 Patient Tobacco Use Status Former Tobacco user 02/12/24 11:52 e-Cigarette/Vaping Use Never Used 02/12/24 11:46 PHQ-9: PHQ-9 Score PHQ-9: Total score 0 02/12/24 11:52 Depression Screening Interpretation: Negative Thrive Assessment: Date of Thrive Assessment Date Thrive assessed 02/12/24 02/12/24 11:52 Const General: no acute distress HENMT Head: Yes normal to inspection Neck Neck: Yes supple Resp Effort & Inspection: normal respiratory effort Auscultation: clear to auscultation bilaterally Cardio Rhythm: regular rhythm Heart sounds: S1 normal heart sound present and S2 normal heart sound present GI Inspection: Yes normal to inspection Palpation (GI): Soft to palpation Assessment and Plan Assessment & Plan (1) CHF (congestive heart failure): Comment: Echo 03/11 nl EF, no valve abnormalities, 2 days Holter occasional PVCs. Code(s): I50.9 - Heart failure, unspecified Plan: Continue current medications (2) Hyperlipidemia: Code(s): E78.5 - Hyperlipidemia, unspecified Plan: Continue statin (3) Spinal stenosis of lumbar region: Code(s): M48.061 - Spinal stenosis, lumbar region without neurogenic claudication Plan: Follow-up with pain management (4) HTN (hypertension): Code(s): I10 - Essential (primary) hypertension Plan: Continue current medications Medications: Refilled atorvastatin 20 mg PO DAILY 90 tabs 3RF Coding Level of Care Code Est Pt Level 4 (92420) Diagnoses CHF (congestive heart failure) I50.9 Hyperlipidemia E78.5 Spinal stenosis of lumbar region M48.061 HTN (hypertension) I10
== END 2024-02-12 12:30 | disposition home or self-care (01) ==
LOC: HO.HMGC 11:42
PROVIDERS: PCP Internal Medicine; Visit Provider Internal Medicine
DX: I11.0 Hypertensive heart disease with heart failure (principal); I50.9 Heart failure, unspecified; E78.5 Hyperlipidemia, unspecified; M48.061 Spinal stenosis, lumbar region without neurogenic claudication
CPT/HCPCS: 99214

== ENCOUNTER 2024-04-26 08:21 | Outpatient (AMB) | payer MEDICARE, SELFPAY ==
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
[2024-04-26 08:31] VITALS: BP 130/90; PULSE 83; TEMP 36.9; O2SAT 97; BMI 40.8
== END 2024-04-26 08:48 | disposition home or self-care (01) ==
PROVIDERS: PCP Internal Medicine; Visit Provider Physician Assistant
DX: J20.8 Acute bronchitis due to other specified organisms (principal); B96.89 Other specified bacterial agents as the cause of diseases classified elsewhere

== ENCOUNTER → 2024-04-26 08:21 | Outpatient (BNVA) | payer MEDICARE, SELFPAY | PROVIDERS: PCP Internal Medicine; Visit Provider Physician Assistant | DX: J20.8 Acute bronchitis due to other specified organisms (principal); B96.89 Other specified bacterial agents as the cause of diseases classified elsewhere | CPT/HCPCS: 99212 ==

== ENCOUNTER 2024-06-27 08:08 | Outpatient (REF) | payer MEDICARE, SELFPAY | END 2024-06-27 08:09 | disposition home or self-care (01) | LOC: HO.LAB 08:08 | PROVIDERS: PCP Internal Medicine | DX: J06.9 Acute upper respiratory infection, unspecified (principal) | CPT/HCPCS: 99212 ==

== ENCOUNTER 2024-06-27 08:08 | Outpatient (AMB) | payer MEDICARE, SELFPAY ==
[2024-06-27 08:14] VITALS: BP 118/80; PULSE 97; TEMP 36.7; O2SAT 95; BMI 41.0
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
== END 2024-06-27 08:50 | disposition home or self-care (01) ==
PROVIDERS: PCP Internal Medicine; Visit Provider Physician Assistant
DX: J06.9 Acute upper respiratory infection, unspecified (principal)

== ENCOUNTER 2024-06-27 08:44 | Outpatient (REF) | payer MEDICARE, SELFPAY ==
--- NOTE | ~2024-06-27 | XR_ITS ---
EXAMINATION: XR CHEST CLINICAL INFORMATION: Cough. COMPARISON: Chest radiograph dated 02/10/2023. TECHNIQUE: 2 views of the chest were obtained. FINDINGS: The lungs are clear. The cardiomediastinal silhouette is normal in size. There is no pleural effusion or pneumothorax. No acute osseous abnormality. XR/XR chest 2V IMPRESSION: No acute cardiopulmonary findings. Electronically signed by: Quinten Goncalves MD 06/27/2024 10:41 AM [facility]
[2024-06-27 11:08] LABS: Influenza A PCR NEGATIVE (Negative); Influenza B PCR NEGATIVE (Negative); Resp Syncy Virus RNA Qual PCR NEGATIVE (Negative); SARS COV2 PCR INHOUSE NEGATIVE (Negative)
== END 2024-06-27 08:45 | disposition home or self-care (01) ==
LOC: HO.HMGCX 08:44
PROVIDERS: PCP Internal Medicine; Visit Provider Physician Assistant
DX: R05.9 Cough, unspecified (principal); J06.9 Acute upper respiratory infection, unspecified
CPT/HCPCS: 0241U; 71046

== ENCOUNTER 2024-08-18 08:28 | Outpatient (REF) | payer MEDICARE, SELFPAY ==
[2024-08-18 10:11] LABS: MANUAL DIFF FLAG NO
[2024-08-18 10:21] LABS: Basophils Absolute Auto 0.1 X10*3/uL (0.0-0.2); Basophils Percent Auto 1.1 % (0-2); Eosinophils Absolute Auto 0.3 X10*3/uL (0.0-0.4); Eosinophils Percent Auto 3.4 % (0-4); Hematocrit 43.9 % (37.0-47.0); Hemoglobin 14.2 g/dl (12.0-16.0); Imm Gran Abs Auto 0.02 X10*3/uL (0.00-0.03); Imm Gran Pct Auto 0.3 % (0.0-0.4); Lymphocytes Absolute Auto 2.1 X10*3/uL (1.2-4.9); Lymphocytes Percent Auto 26.3 % (20-40); Mean Corpuscular HGB Conc 32.3 g/dl (31.0-35.0); Mean Corpuscular Hemoglobin 30.9 pg (27.0-33.0); Mean Corpuscular Volume 95.6 fL (80.0-98.0); Mean Platelet Volume 11.4 fL (9.4-12.3); Monocytes Absolute Auto 0.6 X10*3/uL (0.1-1.2); Monocytes Percent Auto 7.7 % (2-11); Neutrophils Absolute Auto 4.9 x10*3/uL (2.0-8.3); Neutrophils Percent Auto 61.2 % (45-73); Platelet Count 333 X10*3/uL (160-400); Red Blood Count 4.59 X10*6/uL (4.20-5.50); Red Cell Distribution Width 14.7 % (11.0-16.0); White Blood Count 7.9 X10*3/uL (4.8-10.8)
[2024-08-18 11:00] LABS: Alanine Aminotransferase 29 U/L (0-31); Albumin Level 3.8 g/dL (3.5-5.0); Alkaline Phosphatase 92 U/L (39-117); Anion Gap 12 (12-20); Aspartate Amino Transferase 35 U/L (5-31); Bilirubin Total 0.6 mg/dL (0.0-1.0); Blood Urea Nitrogen 7 mg/dL (9-16); Calcium 9.1 mg/dL (8.4-10.2); Carbon Dioxide 25 mmol/L (22-29); Chloride 110 mmol/L (96-108); Cholesterol 143 mg/dL (<200); Estimated Glomerular Filt Rate > 60; Glucose Fasting 119 mg/dL (60-99); HDL Cholesterol 48 mg/dL (>40); LDL Cholesterol Calculated 64 mg/dL (<100); Potassium 3.7 mmol/L (3.3-5.1); Sodium 143 mmol/L (135-145); Total Protein 7.1 g/dL (6.5-8.0); Triglycerides 155 mg/dL (<150)
[2024-08-18 11:19] LABS: TSH reflex Free T4 1.43 uIU/mL (0.32-4.0)
== END 2024-08-18 08:29 | disposition home or self-care (01) ==
LOC: HO.HMGCLDS 08:28
PROVIDERS: PCP Internal Medicine; Visit Provider Internal Medicine
DX: I10 Essential (primary) hypertension (principal); E78.5 Hyperlipidemia, unspecified; E66.9 Obesity, unspecified; I50.9 Heart failure, unspecified
CPT/HCPCS: 36415; 80053; 80061; 84443; 85025

== ENCOUNTER 2024-08-25 12:56 | Outpatient (REF) | payer MEDICARE, SELFPAY ==
[2024-08-25 13:04] LABS: Appearance Urine Cloudy; Color Urine Dark Yellow; Glucose Urine UA Negative (Negative); Leukocyte Esterase Urine Small (1+) (Negative); Nitrite Urine Positive (Negative); PH 5.5 (5.0-9.0); Specific Gravity - Urine >= 1.030 (1.005-1.025); UMIC TRIGGER UA YES; Urine Blood Negative (Negative); Urine Ketones Trace mg/dL (Negative); Urine Protein 30 (1+) mg/dL (Neg-Trace)
[2024-08-25 13:17] LABS: Bacteria Urine 4+ (None Seen); Calcium Oxalate Crystals Urine Present; WBC Urine >50 /HPF (0-5)
== END 2024-08-25 12:57 | disposition home or self-care (01) ==
LOC: HO.HMGCLNP 12:56
PROVIDERS: Visit Provider Internal Medicine
DX: I10 Essential (primary) hypertension (principal); E78.5 Hyperlipidemia, unspecified; R30.0 Dysuria; R73.9 Hyperglycemia, unspecified; Z79.899 Other long term (current) drug therapy
CPT/HCPCS: 81001; 81003; 87086; 87088; 87186; 96127; 99212

== ENCOUNTER 2024-10-12 12:00 | Outpatient (AMB) | payer MEDICARE, SELFPAY ==
[2024-10-12 12:03] VITALS: BP 96/60; PULSE 130; RESP 20; TEMP 36.7; O2SAT 98; BMI 40.2
--- NOTE | 2024-10-12 12:03 | MHC.PC.OV ---
Vital Signs 10/12/24 12:03 Height 5 ft 4 in Weight 234 lb BMI 40.2 BP 96/60 Blood Pressure Location Lt brachial Position Sitting Respiration 20 Pulse 130 H Pulse Source Pulse Oximeter Temp 98.1 F Temp Source Oral Pulse Oximetry (%) 98 Oxygen Delivery Method Room Air Intake Visit Reasons: [facility] Follow up Intake Note: Pt is here today for a Hospital/Rehab follow up. Allergies ciprofloxacin [From Cipro] Allergy (Verified 10/12/24 12:09) vomiting oxybutynin Allergy (Verified 10/12/24 12:09) rash Sulfa (Sulfonamide Antibiotics) Allergy (Verified 10/12/24 12:09) rash gabapentin Adverse Reaction (Intermediate, Verified 10/12/24 12:09) Dizziness spironolactone Adverse Reaction (Intermediate, Verified 10/12/24 12:09) dry mouth Tobacco use date assessed: 10/12/24 Fall risk assessment: 1 Fall in past year Last assessed Fall Risk: 10/12/24 Dental Screening Dental Screen Date: 08/25/24 HPI [facility] Follow up HPI Details Pt presents for f/u hospitalization for R femur fracture after trip and fall s/p ORIF on 09/09/24 at [facility]. Patient developed episode of AFib with rapid ventricular rate and converted spontaneously in the ER. Patient was started on metoprolol and Eliquis. Echocardiogram showed normal ejection fraction and no valvular abnormalities. Patient was discharged to showed her rehab and then home 3 days ago. She reports persistent cough with small amount of white sputum for the last month. She denies chest pain palpitations nausea vomiting fever chills pleurisy PND orthopnea. Patient lives alone and has been getting home physical therapy, ambulating with a walker PENDING SALE TO [facility] Medical History Leg weakness, bilateral Annual physical exam Spinal stenosis of lumbar region Burning chest pain Edema Obesity Hyperlipidemia Osteoarthritis HTN (hypertension) Broken wrist Surgical History H/O colonoscopy History of carpal tunnel surgery History of right knee joint replacement History of total left knee replacement H/O: hysterectomy S/P cholecystectomy Family History Father Hypertension Mother Hypertension A-fib Sister Substance use disorder Social History Household Members Other:: lives alone, 2 daughters Housing: House Patient Tobacco Use Status: Former Tobacco user e-Cigarette/Vaping Use: Never Used service: No Current occupational status: retired Cognitive needs: No Hearing needs: No Vision needs: Yes Questionnaire PHQ-9 Over the last 2 weeks, how often have you been bothered by any of the following problems? 1. Little interest or pleasure in doing things: not at all 2. Feeling down, depressed, or hopeless: not at all 3. Trouble falling or staying asleep, or sleeping too much: several days 4. Feeling tired or having little energy: several days 5. Poor appetite or overeating: several days 6. Feeling bad about yourself - or that you are a failure or have let yourself or your family down: not at all 7. Trouble concentrating on things, such as reading the newspaper or watching television: not at all 8. Moving or speaking so slowly that other people could have noticed. Or the opposite - being so fidgety or restless that you have been moving around a lot more than usual: not at all 9. Thoughts that you would be better off or of hurting yourself in some way: not at all Total score: 3 Depression Screening Interpretation: Negative Depression Screening Done: Yes 38306 - PHQ-9 Billing: Yes Source: Developed by Drs. Federico Wilburn, Mary Tillman, Claude Sullivan and colleagues, with an educational ezra from [employer]. Thrive Questionnaire Date Thrive assessed: 10/12/24 I am a: Patient What is your living situation today?: I have a steady place to live Within the past 12 months, did the food you bought not last and you didn't have the money to get more?: I choose not to answer this question Within the past 12 months, did you worry whether your food would run out before you got money to buy more?: I choose not to answer this question Do you have trouble paying for medicines?: I choose not to answer this question Do you have trouble getting transportation to medical appointments?: I choose not to answer this question THRIVE Score: 0 DAVEY-7 AMB Questionnaire DAVEY-7 Date DAVEY - 7 assessed: 08/25/24 Source: Developed by Drs. Federico Wilburn, Mary Tillman, Claude Sullivan and colleagues, with an educational ezra from [employer]. Review of Systems Const All systems reviewed & are unremarkable except as noted in HPI and below Eyes Reports no additional complaints ENT Reports no additional complaints Card Reports no additional complaints Resp Reports no additional complaints GI Reports no additional complaints Reports no additional complaints Physical exam (Primary Care) Vital Signs: Last Vital Signs Temp 98.1 F 10/12/24 12:03 Pulse 81 10/12/24 12:03 Resp 20 10/12/24 12:03 BP 96/60 10/12/24 12:03 Pulse Ox 98 10/12/24 12:03 Oxygen Delivery Method Room Air 10/12/24 12:03 BMI result Body Mass Index 40.2 Tobacco/Smoking Status: Tobacco use Status Tobacco use date assessed 10/12/24 10/12/24 12:15 Patient Tobacco Use Status Former Tobacco user 10/12/24 12:15 e-Cigarette/Vaping Use Never Used 10/12/24 12:15 PHQ-9: PHQ-9 Score PHQ-9: Total score 3 10/12/24 12:40 Depression Screening Interpretation: Negative Thrive Assessment: Date of Thrive Assessment Date Thrive assessed 10/12/24 10/12/24 12:15 Const General: no acute distress HENMT Head: Yes normal to inspection Neck Neck: Yes no lymphadenopathy and Yes supple Resp Effort & Inspection: normal respiratory effort Auscultation: rales bilateral Cardio Rate: tachycardic Rhythm: abnormal rhythm irregularly irregular Heart sounds: S1 normal heart sound present and S2 normal heart sound present GI Inspection: Yes normal to inspection Palpation (GI): Soft to palpation Extrem Other: 2+ pitting edema bilaterally Coding Level of Care Code Est Pt Level 3 (56624) Diagnoses Atrial fibrillation with RVR I48.91 Additional Codes PHQ-9 - 91575 - PHQ-9 Billing: Yes ([id number]) Assessment & Plan Assessment & Plan (1) Atrial fibrillation with RVR: Code(s): I48.91 - Unspecified atrial fibrillation Category: Medical Plan: EKG showed AFib with heart rate of [address]-T changes in leads 3 AVF V4 through V6. Patient was advised that she needs emergent evaluation and treatment. She declined an ambulance transport and her daughter will take her to the hospital immediately.
--- OUTSIDE RECORDS SUMMARY | 2024-10-12 14:27 | XMS_ITS | Clinical Summary ---
Author Organization [address] Address [address] [place] [address] Phone Care Team Providers Care Deck And Hull Assembler Name Role Phone Danielito Lang MD Primary Care Provider +1- [phone] Encounters Date Type Department Care Team Description 10/03/2024 Lab Requisition [facility] [address] [place] [id number] Danielito Lang MD Anemia, unspecified; Chronic kidney disease, stage 2 (mild) 09/26/2024 Lab Requisition [facility] [address] [place] [address] Danielito Lang MD Anemia, unspecified; Chronic kidney disease, stage 2 (mild); Elevated white blood cell count, unspecified 09/19/2024 Lab Requisition [facility] [address] [place] [address] Danielito Lang MD Anemia, unspecified; Chronic kidney disease, stage 2 (mild) 09/14/2024 Lab Requisition [facility] [address] [place] [address] Danielito Lang MD Chronic kidney disease, stage 3 unspecified (CMS/HCC); Anemia, unspecified from Last 3 Months Surgical History Surgery Date Site/Laterality Comments TOTAL KNEE ARTHROPLASTY Bilateral PROCEDURE: HISTORICAL TOTAL KNEE REPLACE BACK SURGERY october 2013 PROCEDURE: HISTORICAL BACK SURGERY OTHER SURGICAL HISTORY PROCEDURE: PELVIC CONTROL PELVIC SLING CHOLECYSTECTOMY PROCEDURE: HISTORICAL CHOLECYSTECTOMY OTHER SURGICAL HISTORY PROCEDURE: NM STAB PHLEBT VARICOSE VEINS 1 XTR 10-20 STAB INCS OTHER SURGICAL HISTORY PROCEDURE: NM EXCISION INTERDIGITAL AKBAR NEUROMA SINGLE EACH CARPAL TUNNEL RELEASE PROCEDURE: NM NEUROPLASTY &/TRANSPOS MEDIAN NRV CARPAL TUNNE HIP ARTHROPLASTY 10/2015 PROCEDURE: HISTORICAL HIP REPLACEMENT COLONOSCOPY 06/10/2010 PROCEDURE: HISTORICAL COLONOSCOPY; COMMENT: and EGD, normal, repeat 10 yrs Medical History Medical History Date Comments Patient has healthcare proxy DX: Patient has healthcare proxy Stress incontinence in female DX :Stress incontinence in female Urge incontinence DX:Urge incont inence Low back pain potentially as sociated with radiculopathy DX:Low back pain potentially associated with radiculopathy Vitamin D deficiency DX:Vitamin D deficiency Elevated fasting glucose DX:Elev ated fasting glucose HTN (hypertension) DX:HTN (hyper tension) Wrist fracture DX:Wrist fractur e Shingles 05/16/2014 DX:Shingles Hyperlipemia 07/12/2014 DX:Hyperlipemia Carpal tunnel syndrome 05/30/2014 DX:Carpal tunnel syndrome; COMMENT: release 2010 - Patirck Gauthier 05/11/14 Allergic contact dermatitis 07/14/2014 DX:A llergic contact dermatitis; COMMENT: Taken from note of CLINT Carter on 07/05/2014 Dysphagia DX:Dysphagia Multiple thyroid nodules DX:Mult iple thyroid nodules; COMMENT: follow up us next 08/2018 History of tobacco use DX:Histor y of tobacco use; COMMENT: mild smoker 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 DX:Mixed stress and urge uri nary incontinence; COMMENT: [facility] urology 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 01/25/2021 DX:DJD (degenerative joint d isease) of right wrist; COMMENT: Surgery an option if conservative measures fail Family History Medical History Relation Name Comments Prostate cancer Brother 1 Multiple myeloma Brother 2 Prostate cancer Brother 2 Prostate cancer Brother 3 Prostate cancer Father Breast cancer Neg Hx Relation Name Status Comments Brother 1 Brother 2 Brother 3 Father Social History Tobacco Use Types Packs/Day Years Used Date Smoking Tobacco: Former Cigarettes Q uit: 04/08/1985 Smokeless Tobacco: Never Alcohol Use Standard Drinks/Week Comments No 0 (1 standard drink = 0.6 oz pur e alcohol) Comments Unknown Sex and Gender Information Value Date Recorded Sex Assigned at Not on file Legal Sex Female 3:25 AM EST Gender Identity Not on file Sexual Orientation Not on file Obstetrics History Plan of Treatment Health Maintenance Due Date Last Done Comments Zoster Vaccines (1 of 2) 1992 RSV Immunization Patients 60+ Years Old (1 - 1-dose 75+ series) 2017 COVID-19 Vaccine ( - season) 2024 Influenza Vaccine (#1) 2024 8, 04/20/2017, 05/18/2016, Additional history exists Cholesterol Screening (Lipid Panel) 09/20/2024 Depression Screening 09/20/2024 Falls Risk Assessment 09/20/2024 Medicare Annual Wellness Visit 09/20/2024 Osteoporosis Screening (Bone Density Screening) 09/20/2024 Social Influencers of Health Screening 09/20/2024 Hypertension/CHF/CAD Annual BMP Blood Test 10/04/2025 10/04/2024, 09/27/2024, 09/20/2024, Additional history exists DTaP,Tdap,and Td Vaccines (3 - Td or Tdap) 05/26/2028 05/26/2018, 05/07/2012 Pneumococcal Vaccine: 50+ Years Completed 10/14/2017, 07/10/2016, 05/07/2012 HIB Vaccines Aged Out No longer eligi ble based on patient's age to complete this topic HPV Vaccines Aged Out No longer eligi ble based on patient's age to complete this topic Hepatitis A Vaccines Aged Out No long er eligible based on patient's age to complete this topic Hepatitis B Vaccines Aged Out No long er eligible based on patient's age to complete this topic IPV Vaccines Aged Out No longer eligi ble based on patient's age to complete this topic MMR Vaccines Aged Out No longer eligi ble based on patient's age to complete this topic Meningococcal ACWY Vaccine Aged Out N o longer eligible based on patient's age to complete this topic Meningococcal B Vacine Aged Out No lo nger eligible based on patient's age to complete this topic RSV Immunization Patients Under 20 months Aged Out No longer eligible based on patient's age to complete this topic Varicella Vaccines Aged Out No longer eligible based on patient's age to complete this topic Procedures Procedure Name Priority Date/Time Associated Diagnosis Comments BASIC METABOLIC PANEL Routine 10/04/2024 7:40 AM EDT Anemia, unspecified Chronic kidney disease, stage 2 (mild) COMPLETE BLOOD COUNT Routine 10/04/2024 7:40 AM EDT Anemia, unspecified Chronic kidney disease, stage 2 (mild) COMPREHENSIVE METABOLIC PANEL Routine 09/27/2024 8:43 AM EDT Anemia, unspecified Chronic kidney disease, stage 2 (mild) Elevated white blood cell count, unspecified COMPLETE BLOOD COUNT Routine 09/27/2024 8:43 AM EDT Anemia, unspecified Chronic kidney disease, stage 2 (mild) Elevated white blood cell count, unspecified BASIC METABOLIC PANEL Routine 09/20/2024 5:02 AM EST Anemia, unspecified Chronic kidney disease, stage 2 (mild) COMPLETE BLOOD COUNT Routine 09/20/2024 5:02 AM EST Anemia, unspecified Chronic kidney disease, stage 2 (mild) CBC WITH AUTO DIFFERENTIAL Routine 09/15/2024 6:00 AM EST Chronic kidney disease, stage 3 unspecified (CMS/HCC) Anemia, unspecified COMPREHENSIVE METABOLIC PANEL Routine 09/15/2024 6:00 AM EST Chronic kidney disease, stage 3 unspecified (CMS/HCC) Anemia, unspecified CBC AND DIFFERENTIAL Routine 09/15/2024 6:00 AM EST Chronic kidney disease, stage 3 unspecified (CMS/HCC) Anemia, unspecified from Last 3 Months Results * (ABNORMAL) Complete blood count (10/04/2024 7:40 AM EDT) Only the most recent of3 resultswithin the time period is included. [facility] WBC 7.2 4.8 - 10.8 K/[facility] LAB HEMETOLOGY METHOD 10/04/2024 10:36 AM EDT [facility] LAB RBC 3.20(L) 3.80 - 4.80 M/[facility] LAB HEMETOLOGY METHOD 10/04/2024 10:36 AM [facility] LAB Hemoglobin 10.1(L) 11.5 - 16.0 g/dL LAB HEMETOLOGY METHOD 10/04/2024 10:36 AM [facility] LAB Hematocrit 33.2(L) 35.0 - 47.0 % LAB HEMETOLOGY METHOD 10/04/2024 10:36 AM [facility] LAB MCV 103.4(H) 79.0 - 98.0 FL LAB HEMETOLOGY METHOD 10/04/2024 10:36 AM [facility] LAB MCH 31.5 27.0 - 32.0 pcg LAB HEMETOLOGY METHOD 10/04/2024 10:36 AM [facility] LAB MCHC 30.4(L) 32.0 - 37.0 g/dL LAB HEMETOLOGY METHOD 10/04/2024 10:36 AM [facility] LAB RDW 15.9(H) 11.0 - 15.0 % LAB HEMETOLOGY METHOD 10/04/2024 10:36 AM [facility] LAB Platelets 363 130 - 400 K/mcL LAB HEMETOLOGY METHOD 10/04/2024 10:36 AM [facility] LAB MPV 10.6 7.0 - 11.0 FL LAB HEMETOLOGY METHOD 10/04/2024 10:36 AM [facility] LAB NRBC 0.0 <1.0 % LAB HEMETOLOGY METHOD 10/04/2024 10:36 AM [facility] LAB NRBC Absolute 0.00 <0.10 K/mcL LAB HEMETOLOGY METHOD 10/04/2024 10:36 AM [facility] LAB Blood Venous blood specimen / Unknown Venipuncture / Unknown 10/04/2024 7:40 AM EDT 10/04/2024 10:03 AM EDT us Danielito Lang MD LAB BLOOD ORDERABLES Final Result [facility] LAB [address] [place] [address], * (ABNORMAL) Basic metabolic panel (10/04/2024 7:40 AM EDT) Only the most recent of2 resultswithin the time period is included. Sodium 144 133 - 145 mmol/L LAB CHEMISTRY METHOD 10/04/2024 11:47 AM [facility] Potassium 4.2 3.5 - 5.5 mmol/L LAB CHEMISTRY METHOD 10/04/2024 11:47 AM [facility] Chloride 111(H) 96 - 110 mmol/L LAB CHEMISTRY METHOD 10/04/2024 11:47 AM [facility] CO2 26 21 - 32 mmol/L LAB CHEMISTRY METHOD 10/04/2024 11:47 AM [facility] Anion Gap 7 3 - 11 LAB CHEMISTRY METHOD 10/04/2024 11:47 AM [facility] Glucose 87 70 - 100 mg/dL LAB CHEMISTRY METHOD 10/04/2024 11:47 AM [facility] BUN 7 5 - 25 mg/dL LAB CHEMISTRY METHOD 10/04/2024 11:47 AM [facility] Creatinine 0.48(L) 0.50 - 1.10 mg/dL LAB CHEMISTRY METHOD 10/04/2024 11:47 AM [facility] LAB eGFR 95 >=60 mL/min/1. 73m2 LAB CHEMISTRY METHOD 10/04/2024 11:47 AM [facility] LAB Comment:Calculation based on the??Chronic Kidney Disease Epidemiology Collaboration (CKD-EPI) equation refit??without adjustment for race. BUN/Creatinine Ratio 14.6 LAB CHEMISTRY METHOD 10/04/2024 11:47 AM [facility] Calcium 8.5 8.5 - 10.5 mg/dL LAB CHEMISTRY METHOD 10/04/2024 11:47 AM EDT [facility] LAB Blood Venous blood specimen / Unknown Venipuncture / Unknown 10/04/2024 7:40 AM EDT 10/04/2024 10:03 AM EDT us Danielito Lang MD LAB BLOOD ORDERABLES Final Result [facility] [address] [place] [address], [place] [phone] * (ABNORMAL) Comprehensive metabolic panel (09/27/2024 8:43 AM EDT) Only the most recent of2 resultswithin the time period is included. Sodium 144 133 - 145 mmol/L LAB CHEMISTRY METHOD 09/27/2024 1:18 PM [facility] Potassium 4.3 3.5 - 5.5 mmol/L LAB CHEMISTRY METHOD 09/27/2024 1:18 PM [facility] Chloride 111(H) 96 - 110 mmol/L LAB CHEMISTRY METHOD 09/27/2024 1:18 PM [facility] CO2 24 21 - 32 mmol/L LAB CHEMISTRY METHOD 09/27/2024 1:18 PM [facility] Anion Gap 9 3 - 11 LAB CHEMISTRY METHOD 09/27/2024 1:18 PM [facility] Glucose 81 70 - 100 mg/dL LAB CHEMISTRY METHOD 09/27/2024 1:18 PM [facility] BUN 11 5 - 25 mg/dL LAB CHEMISTRY METHOD 09/27/2024 1:18 PM [facility] Creatinine 0.53 0.50 - 1.10 mg/dL LAB CHEMISTRY METHOD 09/27/2024 1:18 PM [facility] LAB eGFR 92 >=60 mL/min/1. 73m2 LAB CHEMISTRY METHOD 09/27/2024 1:18 PM EDT [facility] LAB Comment:Calculation based on the??Chronic Kidney Disease Epidemiology Collaboration (CKD-EPI) equation refit??without adjustment for race. BUN/Creatinine Ratio 20.8 LAB CHEMISTRY METHOD 09/27/2024 1:18 PM EDT [facility] Calcium 8.3(L) 8.5 - 10.5 mg/dL LAB CHEMISTRY METHOD 09/27/2024 1:18 PM EDT [facility] LAB AST (SGOT) 25 10 - 42 unit/L LAB CHEMISTRY METHOD 09/27/2024 1:18 PM [facility] ALT (SGPT) 30 10 - 60 unit/L LAB CHEMISTRY METHOD 09/27/2024 1:18 PM [facility] Alkaline Phosphatase 203(H) 42 - 121 unit/L LAB CHEMISTRY METHOD 09/27/2024 1:18 PM EDT [facility] Total Protein 5.5(L) 6.0 - 8.0 g/dL LAB CHEMISTRY METHOD 09/27/2024 1:18 PM [facility] Albumin 2.6(L) 3.2 - 5.0 g/dL LAB CHEMISTRY METHOD 09/27/2024 1:18 PM [facility] Total Bilirubin 0.7 0.0 - 1.4 mg/dL LAB CHEMISTRY METHOD 09/27/2024 1:18 PM [facility] Blood Venous blood specimen / Unknown Venipuncture / Unknown 09/27/2024 8:43 AM EDT 09/27/2024 10:31 AM EDT us Danielito Lang MD LAB BLOOD ORDERABLES Final Result [facility] [address] [place] [address], * (ABNORMAL) CBC auto differential (09/15/2024 6:00 AM EST) [facility] WBC 17.2(H) 4.8 - 10.8 K/mcL LAB HEMETOLOGY METHOD 09/15/2024 1:11 PM [facility] LAB RBC 3.10(L) 3.80 - 4.80 M/mcL LAB HEMETOLOGY METHOD 09/15/2024 1:11 PM [facility] LAB Hemoglobin 9.6(L) 11.5 - 16.0 g/dL LAB HEMETOLOGY METHOD 09/15/2024 1:11 PM [facility] LAB Hematocrit 30.9(L) 35.0 - 47.0 % LAB HEMETOLOGY METHOD 09/15/2024 1:11 PM [facility] LAB MCV 99.7(H) 79.0 - 98.0 FL LAB HEMETOLOGY METHOD 09/15/2024 1:11 PM [facility] LAB MCH 31.0 27.0 - 32.0 pcg LAB HEMETOLOGY METHOD 09/15/2024 1:11 PM [facility] LAB MCHC 31.1(L) 32.0 - 37.0 g/dL LAB HEMETOLOGY METHOD 09/15/2024 1:11 PM [facility] LAB RDW 15.1(H) 11.0 - 15.0 % LAB HEMETOLOGY METHOD 09/15/2024 1:11 PM [facility] LAB Platelets 393 130 - 400 K/mcL LAB HEMETOLOGY METHOD 09/15/2024 1:11 PM [facility] LAB MPV 10.7 7.0 - 11.0 FL LAB HEMETOLOGY METHOD 09/15/2024 1:11 PM [facility] LAB NRBC 0.0 <1.0 % LAB HEMETOLOGY METHOD 09/15/2024 1:11 PM [facility] LAB NRBC Absolute 0.00 <0.10 K/mcL LAB HEMETOLOGY METHOD 09/15/2024 1:11 PM [facility] Neutrophils Relative 75.9 % LAB HEMETOLOGY METHOD 09/15/2024 1:11 PM [facility] Lymphocytes Relative 12.1 % LAB HEMETOLOGY METHOD 09/15/2024 1:11 PM [facility] Monocytes Relative 7.8 % LAB HEMETOLOGY METHOD 09/15/2024 1:11 PM [facility] Eosinophils Relative 2.9 % LAB HEMETOLOGY METHOD 09/15/2024 1:11 PM [facility] Basophils Relative 0.5 % LAB HEMETOLOGY METHOD 09/15/2024 1:11 PM [facility] Immature Granulocytes Relative 0.8 % LAB HEMETOLOGY METHOD 09/15/2024 1:11 PM [facility] LAB Neutrophils Absolute 13.08(H) 1.50 - 7.00 K/mcL LAB HEMETOLOGY METHOD 09/15/2024 1:11 PM [facility] Lymphocytes Absolute 2.08 1.00 - 5.00 K/mcL LAB HEMETOLOGY METHOD 09/15/2024 1:11 PM [facility] Monocytes Absolute 1.35(H) 0.20 - 1.00 K/mcL LAB HEMETOLOGY METHOD 09/15/2024 1:11 PM [facility] Eosinophils Absolute 0.50 0.00 - 0.50 K/mcL LAB HEMETOLOGY METHOD 09/15/2024 1:11 PM [facility] Basophils Absolute 0.08 0.00 - 0.20 K/mcL LAB HEMETOLOGY METHOD 09/15/2024 1:11 PM [facility] Immature Granulocytes Absolute 0.14(H) 0.00 - 0.03 K/mcL LAB HEMETOLOGY METHOD 09/15/2024 1:11 PM EST [facility] Blood Venous blood specimen / Unknown Venipuncture / Unknown 09/15/2024 6:00 AM EST 09/15/2024 10:50 AM EST Danielito Lang MD LAB BLOOD ORDERABLES Final Result [facility] [address] [place] [address], from Last 3 Months Insurance [employer]AGE [facility] Advance Directives Documents on File Type Date Recorded Patient Product Test Specialist Expl anation Health Care Decision (hx) 09/28/2019 AD ENCARNACION DIRECTIVE Health Care Decision (hx) 09/28/2019 AD ENCARNACION DIRECTIVE Care Teams Deck And Hull Assembler Relationship Specialty Start Date End Date Danielito Lang MD [address] [place] [address] PCP - General Internal Medicine 09/15/24
--- OUTSIDE RECORDS SUMMARY | 2024-10-12 14:27 | XMS_ITS | Encounter Summary ---
Author Organization [facility] Address [address] [place] [address] Care Team Providers Care Intercell Connector Placer Name Role Phone Danielito Lang MD Primary Care Provider +1- [phone] Encounter Details Date Type Department Care Team (Late st Contact Info) Description 09/26/2024 Lab Requisition [facility] Lab [address] [facility] [place] [address] Danielito Lang MD [address] [place] [id number] Anemia, unspecified; Chronic kidney disease, stage 2 (mild); Elevated white blood cell count, unspecified Social History Tobacco Use Types Packs/Day Years [...] on file Sexual Orientation Not on file documented as of this encounter Plan of Treatment Not on file documented as of this encounter Procedures Procedure Name Priority Date/Time Associated Diagnosis Comments COMPLETE BLOOD COUNT Routine 09/27/2024 8:43 AM EDT Anemia, unspecified Chronic kidney disease, stage 2 (mild) Elevated white blood cell count, unspecified COMPREHENSIVE METABOLIC PANEL Routine 09/27/2024 8:43 AM EDT Anemia, unspecified Chronic kidney disease, stage 2 (mild) Elevated white blood cell count, unspecified documented in this encounter Results * (ABNORMAL) Comprehensive metabolic panel (09/27/2024 8:43 AM EDT) Sodium 144 133 - 145 mmol/L LAB CHEMISTRY METHOD 09/27/2024 1:18 PM [facility] Potassium 4.3 3.5 - 5.5 mmol/L LAB CHEMISTRY METHOD 09/27/2024 1:18 PM [facility] Chloride 111(H) 96 - 110 mmol/L LAB CHEMISTRY METHOD 09/27/2024 1:18 PM [facility] CO2 24 21 - 32 mmol/L LAB CHEMISTRY METHOD 09/27/2024 1:18 PM [facility] Anion Gap 9 3 - 11 LAB CHEMISTRY METHOD 09/27/2024 1:18 PM [facility] Glucose 81 70 - 100 mg/dL LAB CHEMISTRY METHOD 09/27/2024 1:18 PM [facility] BUN 11 5 - 25 mg/dL LAB CHEMISTRY METHOD 09/27/2024 1:18 PM [facility] Creatinine 0.53 0.50 - 1.10 mg/dL LAB CHEMISTRY METHOD 09/27/2024 1:18 PM [facility] LAB eGFR 92 >=60 mL/min/1. 73m2 LAB CHEMISTRY METHOD 09/27/2024 1:18 PM [facility] LAB Comment:Calculation based on the??Chronic Kidney Disease Epidemiology Collaboration (CKD-EPI) equation refit??without adjustment for race. BUN/Creatinine Ratio 20.8 LAB CHEMISTRY METHOD 09/27/2024 1:18 PM [facility] Calcium 8.3(L) 8.5 - 10.5 mg/dL LAB CHEMISTRY METHOD 09/27/2024 1:18 PM [facility] LAB AST (SGOT) 25 10 - 42 unit/L LAB CHEMISTRY METHOD 09/27/2024 1:18 PM [facility] ALT (SGPT) 30 10 - 60 unit/L LAB CHEMISTRY METHOD 09/27/2024 1:18 PM EDT [facility] Alkaline Phosphatase 203(H) 42 - 121 unit/L LAB CHEMISTRY METHOD 09/27/2024 1:18 PM EDT [facility] Total Protein 5.5(L) 6.0 - 8.0 g/dL LAB CHEMISTRY METHOD 09/27/2024 1:18 PM EDT [facility] Albumin 2.6(L) 3.2 - 5.0 g/dL LAB CHEMISTRY METHOD 09/27/2024 1:18 PM EDT [facility] Total Bilirubin 0.7 0.0 - 1.4 mg/dL LAB CHEMISTRY METHOD 09/27/2024 1:18 PM EDT [facility] Blood Venous blood specimen / Unknown Venipuncture / Unknown 09/27/2024 8:43 AM EDT 09/27/2024 10:31 AM EDT us Danielito Lang MD LAB BLOOD ORDERABLES Final Result [facility] [address] [place] [address], * (ABNORMAL) Complete blood count (09/27/2024 8:43 AM EDT) WBC 8.1 4.8 - 10.8 K/mcL LAB HEMETOLOGY METHOD 09/27/2024 12:06 PM EDT [facility] RBC 3.10(L) 3.80 - 4.80 M/mcL LAB HEMETOLOGY METHOD 09/27/2024 12:06 PM EDT [facility] Hemoglobin 9.6(L) 11.5 - 16.0 g/dL LAB HEMETOLOGY METHOD 09/27/2024 12:06 PM EDT [facility] Hematocrit 31.7(L) 35.0 - 47.0 % LAB HEMETOLOGY METHOD 09/27/2024 12:06 PM EDT [facility] MCV 101.9(H) 79.0 - 98.0 FL LAB HEMETOLOGY METHOD 09/27/2024 12:06 PM EDT [facility] MCH 30.9 27.0 - 32.0 pcg LAB HEMETOLOGY METHOD 09/27/2024 12:06 PM EDT [facility] MCHC 30.3(L) 32.0 - 37.0 g/dL LAB HEMETOLOGY METHOD 09/27/2024 12:06 PM EDT [facility] RDW 15.9(H) 11.0 - 15.0 % LAB HEMETOLOGY METHOD 09/27/2024 12[facility] Platelets 548(H) 130 - 400 K/mcL LAB HEMETOLOGY METHOD 09/27/2024 12:06 PM EDT [facility] MPV 9.8 7.0 - 11.0 FL LAB HEMETOLOGY METHOD 09/27/2024 12:06 PM EDT [facility] NRBC 0.0 <1.0 % LAB HEMETOLOGY METHOD 09/27/2024 12:06 PM [facility] NRBC Absolute 0.00 <0.10 K/mcL LAB HEMETOLOGY METHOD 09/27/2024 12[facility] Blood Venous blood specimen / Unknown Venipuncture / Unknown 09/27/2024 8:43 AM EDT 09/27/2024 10:31 AM EDT us Danielito Lang MD LAB BLOOD ORDERABLES Final Result [facility] [address] [place] [address], documented in this encounter Visit Diagnoses Diagnosis Anemia, unspecified Chronic kidney disease, stage 2 (mild) Elevated white blood cell count, unspecified documented in this encounter Care Teams Intercell Connector Placer Relationship Specialty Start Date End Date Danielito Lang MD [address] [place] [address] PCP - General Internal Medicine 09/15/24 documented as of this encounter
--- OUTSIDE RECORDS SUMMARY | 2024-10-12 14:27 | XMS_ITS | Encounter Summary ---
Author Organization [facility] Address [address] [place] [address] Care Team Providers Care Powderer Name Role Phone Danielito Lang MD Primary Care Provider +1- [phone] Encounter Details Date Type Department Care Team (Late st Contact Info) Description 09/14/2024 Lab Requisition [facility] - Main Lab [address] [facility] [place] [address] Danielito Lang MD [address] [place] [id number] Chronic kidney disease, stage 3 unspecified (CMS/HCC); Anemia, unspecified Social History Tobacco Use Types Packs/Day [...] Procedure Name Priority Date/Time Associated Diagnosis Comments CBC WITH AUTO DIFFERENTIAL Routine 09/15/2024 6:00 AM EST Chronic kidney disease, stage 3 unspecified (CMS/HCC) Anemia, unspecified CBC AND DIFFERENTIAL Routine 09/15/2024 6:00 AM EST Chronic kidney disease, stage 3 unspecified (CMS/HCC) Anemia, unspecified COMPREHENSIVE METABOLIC PANEL Routine 09/15/2024 6:00 AM EST Chronic kidney disease, stage 3 unspecified (CMS/HCC) Anemia, unspecified documented in this encounter Results * (ABNORMAL) CBC auto differential (09/15/2024 6:00 AM EST) WBC 17.2(H) 4.8 - 10.8 K/mcL LAB HEMETOLOGY METHOD 09/15/2024 1:[address] [facility] RBC 3.10(L) 3.80 - 4.80 M/mcL LAB HEMETOLOGY METHOD 09/15/2024 1:[address] [facility] Hemoglobin 9.6(L) 11.5 - 16.0 g/dL LAB HEMETOLOGY METHOD 09/15/2024 1:[address] [facility] Hematocrit 30.9(L) 35.0 - 47.0 % LAB HEMETOLOGY METHOD 09/15/2024 1:[address] [facility] MCV 99.7(H) 79.0 - 98.0 FL LAB HEMETOLOGY METHOD 09/15/2024 1:[address] [facility] MCH 31.0 27.0 - 32.0 pcg LAB HEMETOLOGY METHOD 09/15/2024 1:[address] [facility] MCHC 31.1(L) 32.0 - 37.0 g/dL LAB HEMETOLOGY METHOD 09/15/2024 1:[address] [facility] RDW 15.1(H) 11.0 - 15.0 % LAB HEMETOLOGY METHOD 09/15/2024 1:[address] [facility] Platelets 393 130 - 400 K/mcL LAB HEMETOLOGY METHOD 09/15/2024 1:[address] [facility] MPV 10.7 7.0 - 11.0 FL LAB HEMETOLOGY METHOD 09/15/2024 1:[address] [facility] NRBC 0.0 <1.0 % LAB HEMETOLOGY METHOD 09/15/2024 1:[address] [facility] NRBC Absolute 0.00 <0.10 K/mcL LAB HEMETOLOGY METHOD 09/15/2024 1:[address] [facility] Neutrophils Relative 75.9 % LAB HEMETOLOGY METHOD 09/15/2024 1:[address] [facility] Lymphocytes Relative 12.1 % LAB HEMETOLOGY METHOD 09/15/2024 1:[address] [facility] Monocytes Relative 7.8 % LAB HEMETOLOGY METHOD 09/15/2024 1:[address] [facility] Eosinophils Relative 2.9 % LAB HEMETOLOGY METHOD 09/15/2024 1:[address] [facility] Basophils Relative 0.5 % LAB HEMETOLOGY METHOD 09/15/2024 1:[address] [facility] Immature Granulocytes Relative 0.8 % LAB HEMETOLOGY METHOD 09/15/2024 1:[address] [facility] Neutrophils Absolute 13.08(H) 1.50 - 7.00 K/mcL LAB HEMETOLOGY METHOD 09/15/2024 1:[address] [facility] Lymphocytes Absolute 2.08 1.00 - 5.00 K/mcL LAB HEMETOLOGY METHOD 09/15/2024 1:[address] [facility] Monocytes Absolute 1.35(H) 0.20 - 1.00 K/mcL LAB HEMETOLOGY METHOD 09/15/2024 1:[address] [facility] Eosinophils Absolute 0.50 0.00 - 0.50 K/mcL LAB HEMETOLOGY METHOD 09/15/2024 1:[address] [facility] Basophils Absolute 0.08 0.00 - 0.20 K/mcL LAB HEMETOLOGY METHOD 09/15/2024 1:[address] [facility] Immature Granulocytes Absolute 0.14(H) 0.00 - 0.03 K/mcL LAB HEMETOLOGY METHOD 09/15/2024 1:[address] [facility] Blood Venous blood specimen / Unknown Venipuncture / Unknown 09/15/2024 6:00 AM EST 09/15/2024 10:50 AM EST Danielito Lang MD LAB BLOOD ORDERABLES Final Result [facility] [address] [place] [address], [place] [phone] * (ABNORMAL) Comprehensive metabolic panel (09/15/2024 6:00 AM EST) Sodium 134 133 - 145 mmol/L LAB CHEMISTRY METHOD 09/15/2024 5:[address] [facility] Potassium 4.4 3.5 - 5.5 mmol/L LAB CHEMISTRY METHOD 09/15/2024 5:[address] [facility] Chloride 103 96 - 110 mmol/L LAB CHEMISTRY METHOD 09/15/2024 5:[address] [facility] CO2 26 21 - 32 mmol/L LAB CHEMISTRY METHOD 09/15/2024 5:[address] [facility] Anion Gap 5 3 - 11 LAB CHEMISTRY METHOD 09/15/2024 5:[address] [facility] Glucose 82 70 - 100 mg/dL LAB CHEMISTRY METHOD 09/15/2024 5:[address] [facility] BUN 13 5 - 25 mg/dL LAB CHEMISTRY METHOD 09/15/2024 5:[address] [facility] Creatinine 0.44(L) 0.50 - 1.10 mg/dL LAB CHEMISTRY METHOD 09/15/2024 5:[address] [facility] eGFR 97 >=60 mL/min/1. 73m2 LAB CHEMISTRY METHOD 09/15/2024 5:[address] [facility] Comment:Calculation based on the??Chronic Kidney Disease Epidemiology Collaboration (CKD-EPI) equation refit??without adjustment for race. BUN/Creatinine Ratio 29.5 LAB CHEMISTRY METHOD 09/15/2024 5:[address] [facility] Calcium 8.3(L) 8.5 - 10.5 mg/dL LAB CHEMISTRY METHOD 09/15/2024 5:[address] [facility] AST (SGOT) 58(H) 10 - 42 unit/L LAB CHEMISTRY METHOD 09/15/2024 5:[address] [facility] ALT (SGPT) 70(H) 10 - 60 unit/L LAB CHEMISTRY METHOD 09/15/2024 5:[address] [facility] Alkaline Phosphatase 116 42 - 121 unit/L LAB CHEMISTRY METHOD 09/15/2024 5:[address] [facility] Total Protein 5.4(L) 6.0 - 8.0 g/dL LAB CHEMISTRY METHOD 09/15/2024 5:[address] [facility] Albumin 2.3(L) 3.2 - 5.0 g/dL LAB CHEMISTRY METHOD 09/15/2024 5:[address] [facility] Total Bilirubin 1.2 0.0 - 1.4 mg/dL LAB CHEMISTRY METHOD 09/15/2024 5:[address] [facility] Blood Venous blood specimen / Unknown Venipuncture / Unknown 09/15/2024 6:00 AM EST 09/15/2024 10:50 AM EST us Danielito Lang MD LAB BLOOD ORDERABLES Final Result [facility] [address] [place] [address], documented in this encounter Visit Diagnoses Diagnosis Chronic kidney disease, stage 3 unspecified (CMS/HCC) Anemia, unspecified documented in this encounter Care Teams Powderer Relationship Specialty Start Date End Date Danielito Lang MD [address] [place] [address] PCP - General Internal Medicine 09/15/24 documented as of this encounter
--- OUTSIDE RECORDS SUMMARY | 2024-10-12 14:27 | XMS_ITS | Encounter Summary ---
Author Organization [facility] Address [address] [place] [address] Care Team Providers Care Relay Engineer Name Role Phone Danielito Lang MD Primary Care Provider +1- [phone] Encounter Details Date Type Department Care Team (Late st Contact Info) Description 09/19/2024 Lab Requisition [facility] - Main Lab 299 [facility] [place] [address] Danielito Lang MD [address] [place] [phone] Anemia, unspecified; Chronic kidney disease, stage 2 (mild) Social History Tobacco Use Types Packs/Day Years [...] Associated Diagnosis Comments COMPLETE BLOOD COUNT Routine 09/20/2024 5:02 AM EST Anemia, unspecified Chronic kidney disease, stage 2 (mild) BASIC METABOLIC PANEL Routine 09/20/2024 5:02 AM EST Anemia, unspecified Chronic kidney disease, stage 2 (mild) documented in this encounter Results * (ABNORMAL) Basic metabolic panel (09/20/2024 5:02 AM EST) Sodium 141 133 - 145 mmol/L LAB CHEMISTRY METHOD 09/20/2024 11:52 AM [facility] Potassium 5.2 3.5 - 5.5 mmol/L LAB CHEMISTRY METHOD 09/20/2024 11:52 AM [facility] Chloride 109 96 - 110 mmol/L LAB CHEMISTRY METHOD 09/20/2024 11:52 AM [facility] CO2 26 21 - 32 mmol/L LAB CHEMISTRY METHOD 09/20/2024 11:52 AM [facility] Anion Gap 6 3 - 11 LAB CHEMISTRY METHOD 09/20/2024 11:52 AM [facility] Glucose 76 70 - 100 mg/dL LAB CHEMISTRY METHOD 09/20/2024 11:52 AM [facility] BUN 18 5 - 25 mg/dL LAB CHEMISTRY METHOD 09/20/2024 11:52 AM [facility] Creatinine 0.52 0.50 - 1.10 mg/dL LAB CHEMISTRY METHOD 09/20/2024 11:52 AM [facility] eGFR 93 >=60 mL/min/1. 73m2 LAB CHEMISTRY METHOD 09/20/2024 11:52 AM [facility] Comment:Calculation based on the??Chronic Kidney Disease Epidemiology Collaboration (CKD-EPI) equation refit??without adjustment for race. BUN/Creatinine Ratio 34.6 LAB CHEMISTRY METHOD 09/20/2024 11:52 AM [facility] Calcium 8.3(L) 8.5 - 10.5 mg/dL LAB CHEMISTRY METHOD 09/20/2024 11:52 AM [facility] Blood Venous blood specimen / Unknown Venipuncture / Unknown 09/20/2024 5:02 AM EST 09/20/2024 10:59 AM EST us Danielito Lang MD LAB BLOOD ORDERABLES Final Result [facility] [address] [place] [address], * (ABNORMAL) Complete blood count (09/20/2024 5:02 AM EST) [facility] Signature WBC 12.9(H) 4.8 - 10.8 K/mcL LAB HEMETOLOGY METHOD 09/20/2024 11:41 AM [facility] RBC 3.00(L) 3.80 - 4.80 M/mcL LAB HEMETOLOGY METHOD 09/20/2024 11:41 AM [facility] Hemoglobin 9.1(L) 11.5 - 16.0 g/dL LAB HEMETOLOGY METHOD 09/20/2024 11:41 AM [facility] Hematocrit 30.1(L) 35.0 - 47.0 % LAB HEMETOLOGY METHOD 09/20/2024 11:41 AM [facility] MCV 101.7(H) 79.0 - 98.0 FL LAB HEMETOLOGY METHOD 09/20/2024 11:41 AM [facility] MCH 30.7 27.0 - 32.0 pcg LAB HEMETOLOGY METHOD 09/20/2024 11:41 AM [facility] MCHC 30.2(L) 32.0 - 37.0 g/dL LAB HEMETOLOGY METHOD 09/20/2024 11:41 AM [facility] RDW 15.1(H) 11.0 - 15.0 % LAB HEMETOLOGY METHOD 09/20/2024 11:41 AM [facility] Platelets 541(H) 130 - 400 K/mcL LAB HEMETOLOGY METHOD 09/20/2024 11:41 AM [facility] MPV 10.4 7.0 - 11.0 FL LAB HEMETOLOGY METHOD 09/20/2024 11:41 AM EST [facility] NRBC 0.0 <1.0 % LAB HEMETOLOGY METHOD 09/20/2024 11:41 AM EST [facility] NRBC Absolute 0.00 <0.10 K/mcL LAB HEMETOLOGY METHOD 09/20/2024 11:41 AM EST [facility] Blood Venous blood specimen / Unknown Venipuncture / Unknown 09/20/2024 5:02 AM EST 09/20/2024 10:59 AM EST us Danielito Lang MD LAB BLOOD ORDERABLES Final Result [facility] [address] [place] [address], documented in this encounter Visit Diagnoses Diagnosis Anemia, unspecified Chronic kidney disease, stage 2 (mild) documented in this encounter Care Teams Relay Engineer Relationship Specialty Start Date End Date Danielito Lang MD [address] [place] [phone] PCP - General Internal Medicine 09/15/24 documented as of this encounter
--- OUTSIDE RECORDS SUMMARY | 2024-10-12 14:27 | XMS_ITS | Encounter Summary ---
Author Organization [facility] Address [address] [place] [address] Care Team Providers Care Shopper Insights Manager Name Role Phone Danielito Lang MD Primary Care Provider +1- [phone] Encounter Details Date Type Department Care Team (Late st Contact Info) Description 10/03/2024 Lab Requisition [facility] - Main Lab [address] [facility] [place] [address] Danielito Lang MD [address] [place] [phone] Anemia, unspecified; Chronic kidney disease, stage 2 [...] Associated Diagnosis Comments COMPLETE BLOOD COUNT Routine 10/04/2024 7:40 AM EDT Anemia, unspecified Chronic kidney disease, stage 2 (mild) BASIC METABOLIC PANEL Routine 10/04/2024 7:40 AM EDT Anemia, unspecified Chronic kidney disease, stage 2 (mild) documented in this encounter Results * (ABNORMAL) Basic metabolic panel (10/04/2024 7:40 AM EDT) Sodium 144 133 - 145 mmol/L LAB CHEMISTRY METHOD 10/04/2024 11:47 AM [facility] Potassium 4.2 3.5 - 5.5 mmol/L LAB CHEMISTRY METHOD 10/04/2024 11:47 AM [facility] Chloride 111(H) 96 - 110 mmol/L LAB CHEMISTRY METHOD 10/04/2024 11:47 AM [facility] CO2 26 21 - 32 mmol/L LAB CHEMISTRY METHOD 10/04/2024 11:47 AM [facility] Anion Gap 7 3 - 11 LAB CHEMISTRY METHOD 10/04/2024 11:47 AM [facility] Glucose 87 70 - 100 mg/dL LAB CHEMISTRY METHOD 10/04/2024 11:47 AM [facility] BUN 7 5 - 25 mg/dL LAB CHEMISTRY METHOD 10/04/2024 11:47 AM [facility] Creatinine 0.48(L) 0.50 - 1.10 mg/dL LAB CHEMISTRY METHOD 10/04/2024 11:47 AM [facility] eGFR 95 >=60 mL/min/1. 73m2 LAB CHEMISTRY METHOD 10/04/2024 11:47 AM [facility] Comment:Calculation based on the??Chronic Kidney Disease Epidemiology Collaboration (CKD-EPI) equation refit??without adjustment for race. BUN/Creatinine Ratio 14.6 LAB CHEMISTRY METHOD 10/04/2024 11:47 AM [facility] Calcium 8.5 8.5 - 10.5 mg/dL LAB CHEMISTRY METHOD 10/04/2024 11:47 AM [facility] Blood Venous blood specimen / Unknown Venipuncture / Unknown 10/04/2024 7:40 AM EDT 10/04/2024 10:03 AM EDT us Danielito Lang MD LAB BLOOD ORDERABLES Final Result [facility] [address] [place] [address], * (ABNORMAL) Complete blood count (10/04/2024 7:40 AM EDT) [facility] Signature WBC 7.2 4.8 - 10.8 K/mcL LAB HEMETOLOGY METHOD 10/04/2024 10:36 AM EDT [facility] RBC 3.20(L) 3.80 - 4.80 M/mcL LAB HEMETOLOGY METHOD 10/04/2024 10:36 AM EDT [facility] Hemoglobin 10.1(L) 11.5 - 16.0 g/dL LAB HEMETOLOGY METHOD 10/04/2024 10:36 AM EDT [facility] Hematocrit 33.2(L) 35.0 - 47.0 % LAB HEMETOLOGY METHOD 10/04/2024 10:36 AM EDT [facility] MCV 103.4(H) 79.0 - 98.0 FL LAB HEMETOLOGY METHOD 10/04/2024 10:36 AM EDT [facility] MCH 31.5 27.0 - 32.0 pcg LAB HEMETOLOGY METHOD 10/04/2024 10:36 AM EDT [facility] MCHC 30.4(L) 32.0 - 37.0 g/dL LAB HEMETOLOGY METHOD 10/04/2024 10:36 AM EDT [facility] RDW 15.9(H) 11.0 - 15.0 % LAB HEMETOLOGY METHOD 10/04/2024 10:36 AM EDT [facility] Platelets 363 130 - 400 K/mcL LAB HEMETOLOGY METHOD 10/04/2024 10:36 AM EDT [facility] MPV 10.6 7.0 - 11.0 FL LAB HEMETOLOGY METHOD 10/04/2024 10:36 AM EDT [facility] NRBC 0.0 <1.0 % LAB HEMETOLOGY METHOD 10/04/2024 10:36 AM EDT [facility] NRBC Absolute 0.00 <0.10 K/mcL LAB HEMETOLOGY METHOD 10/04/2024 10:36 AM EDT [facility] Blood Venous blood specimen / Unknown Venipuncture / Unknown 10/04/2024 7:40 AM EDT 10/04/2024 10:03 AM EDT us Danielito Lang MD LAB BLOOD ORDERABLES Final Result [facility] [address] [place] [address], documented in this encounter Visit Diagnoses Diagnosis Anemia, unspecified Chronic kidney disease, stage 2 (mild) documented in this encounter Care Teams Shopper Insights Manager Relationship Specialty Start Date End Date Danielito Lang MD [address] [place] [phone] PCP - General Internal Medicine 09/15/24 documented as of this encounter
== END 2024-10-12 14:35 | disposition home or self-care (01) ==
LOC: HO.HMCC 12:01
PROVIDERS: PCP Internal Medicine; Visit Provider Internal Medicine
DX: I48.91 Unspecified atrial fibrillation (principal)

== ENCOUNTER → 2024-10-12 12:00 | Outpatient (BNVA) | payer MEDICARE, SELFPAY | PROVIDERS: PCP Internal Medicine; Visit Provider Internal Medicine | DX: I48.91 Unspecified atrial fibrillation (principal) | CPT/HCPCS: 96127; 99212 ==

== ENCOUNTER → 2024-10-20 23:59 | Outpatient (BNV) | payer MEDICARE, SELFPAY | PROVIDERS: PCP Internal Medicine; Visit Provider Internal Medicine | DX: I12.9 Hypertensive chronic kidney disease with stage 1 through stage 4 chronic kidney disease, or unspecified chronic kidney disease (principal); N18.2 Chronic kidney disease, stage 2 (mild); D63.1 Anemia in chronic kidney disease | CPT/HCPCS: G0180 ==

== ENCOUNTER 2024-10-25 12:05 | Outpatient (AMB) | payer MEDICARE, SELFPAY ==
--- NOTE | 2024-10-25 12:19 | MHC.PC.OV ---
Vital Signs 10/25/24 12:31 Height 5 ft 4 in Weight 230 lb BMI 39.5 BP 120/66 Blood Pressure Location Rt brachial Position Sitting Respiration 20 Pulse 50 Pulse Source Pulse Oximeter Pulse Oximetry (%) 99 Oxygen Delivery Method Room Air Intake Visit Reasons: Hospital follow up Intake Note: Pt is here today for Hospital follow up visit. Allergies ciprofloxacin [From Cipro] Allergy (Verified 10/25/24 12:48) vomiting oxybutynin Allergy (Verified 10/25/24 12:48) rash Sulfa (Sulfonamide Antibiotics) Allergy (Verified 10/25/24 12:48) rash gabapentin Adverse Reaction (Intermediate, Verified 10/25/24 12:48) Dizziness spironolactone Adverse Reaction (Intermediate, Verified 10/25/24 12:48) dry mouth Medication List - Last Reconciled 10/25/24 by Anastasia Angel MD amlodipine 2.5 mg PO DAILY apixaban (Eliquis) 5 mg PO BID atorvastatin 20 mg PO DAILY [coq10 100 mg daily] estradiol 0.01%(0.1mg/gram) 1 g vaginal 2XW flecainide 50 mg PO BID folic acid 0.4 mg PO DAILY furosemide 20 mg PO DAILY metoprolol succinate ER 75 mg (3 x 25 mg) PO DAILY tramadol 50 mg PO Q6H PRN triamcinolone acetonide 0.025% 1 appl topical BID valsartan 320 mg PO DAILY vitamin B complex 1 tab PO DAILY Tobacco use date assessed: 10/25/24 Dental Screening Dental Screen Date: 08/25/24 [facility] Hospital follow up HPI Details Patient presents for the follow-up of hospitalization at [facility] 8 days ago for AFib with RVR status post cardioversion. Patient was started on Eliquis flecainide and continues to take metoprolol. She has been taking furosemide for lower extremity swelling and reports persistent swelling but denies PND orthopnea chest pains palpitations. Echo at [facility] showed ejection fraction 65 -70%, no segmental wall motion abnormalities, normal valves. She has an appointment with [facility]iology in 3 weeks. Patient has been working physical therapy to improve ambulation with a walker after left femur fracture. [facility] Medical History (Updated 10/25/24 @ 15:40 by Anastasia Angel MD) Leg weakness, bilateral Annual physical exam Spinal stenosis of lumbar region Burning chest pain Edema Obesity Hyperlipidemia Osteoarthritis HTN (hypertension) Broken wrist Surgical History H/O colonoscopy History of carpal tunnel surgery History of right knee joint replacement History of total left knee replacement H/O: hysterectomy S/P cholecystectomy Family History Father Hypertension Mother Hypertension A-fib Sister Substance use disorder Social History Household Members Other:: lives alone, 2 daughters Housing: House Patient Tobacco Use Status: Former Tobacco user e-Cigarette/Vaping Use: Never Used service: No Current occupational status: retired Cognitive needs: No Hearing needs: No Vision needs: Yes Questionnaire Thrive Questionnaire Date Thrive assessed: 10/12/24 I am a: Patient What is your living situation today?: I have a steady place to live Within the past 12 months, did the food you bought not last and you didn't have the money to get more?: I choose not to answer this question Within the past 12 months, did you worry whether your food would run out before you got money to buy more?: I choose not to answer this question Do you have trouble paying for medicines?: I choose not to answer this question Do you have trouble getting transportation to medical appointments?: I choose not to answer this question THRIVE Score: 0 DAVEY-7 AMB Questionnaire DAVEY-7 Date DAVEY - 7 assessed: 08/25/24 Source: Developed by Drs. Federico Wilburn, Mary Tillman, Claude Sullivan and colleagues, with an educational ezra from [employer]. Review of Systems Const All systems reviewed & are unremarkable except as noted in HPI and below Eyes Reports no additional complaints ENT Reports no additional complaints Card Reports no additional complaints Resp Reports no additional complaints GI Reports no additional complaints Reports no additional complaints Physical exam (Primary Care) Vital Signs: Last Vital Signs Pulse 50 10/25/24 12:31 Resp 20 10/25/24 12:31 BP 120/66 10/25/24 12:31 Pulse Ox 99 10/25/24 12:31 Oxygen Delivery Method Room Air 10/25/24 12:31 BMI result Body Mass Index 39.5 Tobacco/Smoking Status: Tobacco use Status Tobacco use date assessed 10/25/24 10/25/24 12:48 Patient Tobacco Use Status Former Tobacco user 10/25/24 12:19 e-Cigarette/Vaping Use Never Used 10/25/24 12:19 Thrive Assessment: Date of Thrive Assessment Date Thrive assessed 10/12/24 10/25/24 12:19 Const General: no acute distress HENMT Mouth: Normal oral and palatal mucosa present Resp Effort & Inspection: normal respiratory effort Auscultation: clear to auscultation bilaterally Cardio Rhythm: regular rhythm Heart sounds: S1 normal heart sound present and S2 normal heart sound present GI Inspection: Yes normal to inspection Palpation (GI): Soft to palpation Percussion: Yes normal to percussion Auscultation: normal bowel sounds Extrem Other: 3+ pitting edema bilaterally Coding Level of Care Code Est Pt Level 5 (88510) Complex EM visit Add On G2211 Diagnoses Atrial fibrillation with RVR I48.91 HTN (hypertension) I10 Obesity E66.9 Hyperlipidemia E78.5 Vitamin D deficiency E55.9 Assessment & Plan Assessment & Plan (1) Atrial fibrillation with RVR: Comment: Status post cardioversion 09/2024 at [facility], on flecainide metoprolol and Eliquis, follow-up with [facility], Echo 08/2024 EF 65-70%, no segmental wall motion abnormalities Code(s): I48.91 - Unspecified atrial fibrillation Category: Medical Plan: Rhythm and rate controlled on flecainide metoprolol will be decreased from 100 mg to 75 due to bradycardia at 53, patient is anticoagulated on the Eliquis (2) HTN (hypertension): Code(s): I10 - Essential (primary) hypertension Category: Medical Plan: Continue current medications (3) Obesity: Code(s): E66.9 - Obesity, unspecified Category: Medical Plan: Decreasing caloric intake increasing physical activity discussed with the patient (4) Hyperlipidemia: Code(s): E78.5 - Hyperlipidemia, unspecified Category: Medical Plan: Continue statin (5) Vitamin D deficiency: Code(s): E55.9 - Vitamin D deficiency, unspecified Category: Medical Plan: Continue vitamin-D Orders: Orders AMB EKG-In Office Today I10 - Essential (primary) hypertension, I48.91 - Unspecified atrial fibrillation B Type Natriuretic Peptide 1 Week I48.91 - Unspecified atrial fibrillation Complete Blood Count Auto Diff 3 Months E55.9 - Vitamin D deficiency, unspecified, E78.5 - Hyperlipidemia, unspecified, I10 - Essential (primary) hypertension, I48.91 - Unspecified atrial fibrillation, R60.9 - Edema, unspecified, R73.9 - Hyperglycemia, unspecified Lipid Panel 3 Months E55.9 - Vitamin D deficiency, unspecified, E78.5 - Hyperlipidemia, unspecified, I10 - Essential (primary) hypertension, I48.91 - Unspecified atrial fibrillation, R60.9 - Edema, unspecified, R73.9 - Hyperglycemia, unspecified Hemoglobin A1c 3 Months E55.9 - Vitamin D deficiency, unspecified, E78.5 - Hyperlipidemia, unspecified, I10 - Essential (primary) hypertension, I48.91 - Unspecified atrial fibrillation, R60.9 - Edema, unspecified, R73.9 - Hyperglycemia, unspecified TSH reflex Free T4 3 Months E55.9 - Vitamin D deficiency, unspecified, E78.5 - Hyperlipidemia, unspecified, I10 - Essential (primary) hypertension, I48.91 - Unspecified atrial fibrillation, R60.9 - Edema, unspecified, R73.9 - Hyperglycemia, unspecified Vitamin D 25-OH Total 3 Months E55.9 - Vitamin D deficiency, unspecified, E78.5 - Hyperlipidemia, unspecified, I10 - Essential (primary) hypertension, I48.91 - Unspecified atrial fibrillation, R60.9 - Edema, unspecified, R73.9 - Hyperglycemia, unspecified Comprehensive Met. Panel 1 Week I10 - Essential (primary) hypertension, I48.91 - Unspecified atrial fibrillation Comprehensive [place]. Panel Fast 3 Months E55.9 - Vitamin D deficiency, unspecified, E78.5 - Hyperlipidemia, unspecified, I10 - Essential (primary) hypertension, I48.91 - Unspecified atrial fibrillation, R60.9 - Edema, unspecified, R73.9 - Hyperglycemia, unspecified Medications: New amlodipine 2.5 mg PO DAILY 90 tabs 3RF flecainide 50 mg PO BID 180 tabs 1RF furosemide 20 mg PO DAILY 90 tabs 0RF metoprolol succinate ER 75 mg (3 x 25 mg) PO DAILY 270 tabs 1RF amlodipine 2.5 mg PO DAILY 90 tabs 3RF
[2024-10-25 12:31] VITALS: BP 120/66; PULSE 50; RESP 20; O2SAT 99; BMI 39.5
--- OUTSIDE RECORDS SUMMARY | 2024-10-25 14:41 | XMS_ITS | Clinical Summary ---
Author Organization [address] Address [address] [place] [address] Phone Care Team Providers Care Enterprise Mobility Architect Name Role Phone Danielito Lang MD Primary Care Provider [phone]- [phone] Encounters Date Type Department Care Team Description 10/03/2024 Lab Requisition [facility] Lab [address] [place] [id number] Danielito Lang MD Anemia, unspecified; Chronic kidney disease, stage 2 (mild) 09/26/2024 Lab Requisition [facility] Lab [address] [place] [address] Danielito Lang MD Anemia, unspecified; Chronic kidney disease, stage 2 (mild); Elevated white blood cell count, unspecified 09/19/2024 Lab Requisition [facility] Lab [address] [place] [address] Danielito Lang MD Anemia, unspecified; Chronic kidney disease, stage 2 (mild) 09/14/2024 Lab Requisition [facility] Lab [address] [place] [address] Danielito Lang MD Chronic kidney disease, stage 3 unspecified (CMS/HCC); Anemia, unspecified from Last 3 Months Surgical History Surgery Date Site/Laterality Comments TOTAL KNEE ARTHROPLASTY Bilateral PROCEDURE: HISTORICAL TOTAL KNEE REPLACE BACK SURGERY october 2013 PROCEDURE: HISTORICAL BACK SURGERY OTHER SURGICAL HISTORY PROCEDURE: PELVIC CONTROL PELVIC SLING CHOLECYSTECTOMY PROCEDURE: HISTORICAL CHOLECYSTECTOMY OTHER SURGICAL HISTORY PROCEDURE: OH STAB PHLEBT VARICOSE VEINS 1 XTR 10-20 STAB INCS OTHER SURGICAL HISTORY PROCEDURE: OH EXCISION INTERDIGITAL AKBAR NEUROMA SINGLE EACH CARPAL TUNNEL RELEASE PROCEDURE: OH NEUROPLASTY &/TRANSPOS MEDIAN NRV CARPAL TUNNE HIP [...] DX:Carpal tunnel syndrome; COMMENT: release 2010 - Patrick Gauthier 05/11/14 Allergic contact dermatitis 07/14/2014 DX:A llergic contact dermatitis; COMMENT: Taken from note of CLINT Carter on 07/05/2014 Dysphagia DX:Dysphagia Multiple thyroid nodules DX:Mult iple thyroid nodules; COMMENT: follow up us next 08/2018 History of tobacco use DX:Histor y of tobacco use; COMMENT: mild smoker 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 WBC 7.2 4.8 - 10.8 K/[facility] LAB HEMETOLOGY METHOD 10/04/2024 10:36 AM EDT [facility] LAB RBC 3.20(L) 3.80 - 4.80 M/[facility] LAB HEMETOLOGY METHOD 10/04/2024 10:[address] [facility] LAB Hemoglobin 10.1(L) 11.5 - 16.0 g/dL LAB HEMETOLOGY METHOD 10/04/2024 10:[address] [facility] LAB Hematocrit 33.2(L) 35.0 - 47.0 % LAB HEMETOLOGY METHOD 10/04/2024 10:[address] [facility] LAB MCV 103.4(H) 79.0 - 98.0 FL LAB HEMETOLOGY METHOD 10/04/2024 10:[address] [facility] LAB MCH 31.5 27.0 - 32.0 pcg LAB HEMETOLOGY METHOD 10/04/2024 10:[address] [facility] LAB MCHC 30.4(L) 32.0 - 37.0 g/dL LAB HEMETOLOGY METHOD 10/04/2024 10:[address] [facility] LAB RDW 15.9(H) 11.0 - 15.0 % LAB HEMETOLOGY METHOD 10/04/2024 10:[address] [facility] LAB Platelets 363 130 - 400 K/mcL LAB HEMETOLOGY METHOD 10/04/2024 10:[address] [facility] LAB MPV 10.6 7.0 - 11.0 FL LAB HEMETOLOGY METHOD 10/04/2024 10:[address] [facility] LAB NRBC 0.0 <1.0 % LAB HEMETOLOGY METHOD 10/04/2024 10:[address] [facility] LAB NRBC Absolute 0.00 <0.10 K/mcL LAB HEMETOLOGY METHOD 10/04/2024 10:[address] [facility] LAB Blood Venous blood specimen / Unknown Venipuncture / Unknown 10/04/2024 7:40 AM EDT 10/04/2024 10:03 AM EDT us Danielito Lang MD LAB BLOOD ORDERABLES Final Result [facility] LAB [address] [place] [address], * (ABNORMAL) Basic metabolic panel (10/04/2024 7:40 AM EDT) Only the most recent of2 resultswithin the time period is included. Sodium 144 133 - 145 mmol/L LAB CHEMISTRY METHOD 10/04/2024 11:[address] [facility] LAB Potassium 4.2 3.5 - 5.5 mmol/L LAB CHEMISTRY METHOD 10/04/2024 11:[address] [facility] LAB Chloride 111(H) 96 - 110 mmol/L LAB CHEMISTRY METHOD 10/04/2024 11:[address] [facility] LAB CO2 26 21 - 32 mmol/L LAB CHEMISTRY METHOD 10/04/2024 11:[address] [facility] LAB Anion Gap 7 3 - 11 LAB CHEMISTRY METHOD 10/04/2024 11:[address] [facility] LAB Glucose 87 70 - 100 mg/dL LAB CHEMISTRY METHOD 10/04/2024 11:[address] [facility] LAB BUN 7 5 - 25 mg/dL LAB CHEMISTRY METHOD 10/04/2024 11:[address] [facility] LAB Creatinine 0.48(L) 0.50 - 1.10 mg/dL LAB CHEMISTRY METHOD 10/04/2024 11:[address] [facility] LAB eGFR 95 >=60 mL/min/1. 73m2 LAB CHEMISTRY METHOD 10/04/2024 11:[address] [facility] LAB Comment:Calculation based on the??Chronic Kidney Disease Epidemiology Collaboration (CKD-EPI) equation refit??without adjustment for race. BUN/Creatinine Ratio 14.6 LAB CHEMISTRY METHOD 10/04/2024 11:[address] [facility] LAB Calcium 8.5 8.5 - 10.5 mg/dL LAB CHEMISTRY METHOD 10/04/2024 11:47 AM EDT [facility] LAB Blood Venous blood specimen / Unknown Venipuncture / Unknown 10/04/2024 7:40 AM EDT 10/04/2024 10:03 AM EDT us Danielito Lang MD LAB BLOOD ORDERABLES Final Result [facility] [address] [place] [address], * (ABNORMAL) Comprehensive metabolic panel (09/27/2024 8:43 AM EDT) Only the most recent of2 resultswithin the time period is included. Sodium 144 133 - 145 mmol/L LAB CHEMISTRY METHOD 09/27/2024 1:[address] [facility] LAB Potassium 4.3 3.5 - 5.5 mmol/L LAB CHEMISTRY METHOD 09/27/2024 1:[address] [facility] LAB Chloride 111(H) 96 - 110 mmol/L LAB CHEMISTRY METHOD 09/27/2024 1:[address] [facility] LAB CO2 24 21 - 32 mmol/L LAB CHEMISTRY METHOD 09/27/2024 1:[address] [facility] LAB Anion Gap 9 3 - 11 LAB CHEMISTRY METHOD 09/27/2024 1:[address] [facility] LAB Glucose 81 70 - 100 mg/dL LAB CHEMISTRY METHOD 09/27/2024 1:[address] [facility] BUN 11 5 - 25 mg/dL LAB CHEMISTRY METHOD 09/27/2024 1:[address] [facility] LAB Creatinine 0.53 0.50 - 1.10 mg/dL LAB CHEMISTRY METHOD 09/27/2024 1:[address] [facility] LAB eGFR 92 >=60 mL/min/1. 73m2 LAB CHEMISTRY METHOD 09/27/2024 1:18 PM EDT [facility] LAB Comment:Calculation based on the??Chronic Kidney Disease Epidemiology Collaboration (CKD-EPI) equation refit??without adjustment for race. BUN/Creatinine Ratio 20.8 LAB CHEMISTRY METHOD 09/27/2024 1:18 PM EDT [facility] LAB Calcium 8.3(L) 8.5 - 10.5 mg/dL LAB CHEMISTRY METHOD [facility] ([facility]OT[facility] 25 10 - 42 unit/L LAB CHEMISTRY METHOD 09/27/2024 1:[address] [facility] ALT (SGPT) 30 10 - 60 unit/L LAB CHEMISTRY METHOD 09/27/2024 1:[address] [facility] LAB Alkaline Phosphatase 203(H) 42 - 121 unit/L LAB CHEMISTRY METHOD 09/27/2024 1:18 PM EDT [facility] LAB Total Protein 5.5(L) 6.0 - 8.0 g/dL LAB CHEMISTRY METHOD 09/27/2024 1:[address] [facility] LAB Albumin 2.6(L) 3.2 - 5.0 g/dL LAB CHEMISTRY METHOD 09/27/2024 1:[address] [facility] Total Bilirubin 0.7 0.0 - 1.4 mg/dL LAB CHEMISTRY METHOD 09/27/2024 1:[address] [facility] Blood Venous blood specimen / Unknown Venipuncture / Unknown 09/27/2024 8:43 AM EDT 09/27/2024 10:31 AM EDT us Danielito Lang MD LAB BLOOD ORDERABLES Final Result [facility] [address] [place] [address], * (ABNORMAL) CBC auto differential (09/15/2024 6:00 AM EST) [facility] WBC 17.2(H) 4.8 - 10.8 K/mcL LAB HEMETOLOGY METHOD 09/15/2024 1:11 PM [facility] LAB RBC 3.10(L) 3.80 - 4.80 M/mcL LAB HEMETOLOGY METHOD 09/15/2024 1:11 PM [facility] LAB Hemoglobin 9.6(L) 11.5 - 16.0 g/dL LAB HEMETOLOGY METHOD 09/15/2024 1:11 PM [facility] LAB Hematocrit 30.9(L) 35.0 - 47.0 % LAB HEMETOLOGY METHOD 09/15/2024 1:11 PM [facility] LAB MCV 99.7(H) 79.0 - 98.0 FL LAB HEMETOLOGY METHOD 09/15/2024 1:11 PM [facility] LAB MCH 31.0 27.0 - 32.0 pcg LAB HEMETOLOGY METHOD 09/15/2024 1:11 PM [facility] LAB MCHC 31.1(L) 32.0 - 37.0 g/dL LAB HEMETOLOGY METHOD 09/15/2024 1:11 PM [facility] LAB RDW 15.1(H) 11.0 - 15.0 % LAB HEMETOLOGY METHOD 09/15/2024 1:11 PM [facility] LAB Platelets 393 130 - 400 K/mcL LAB HEMETOLOGY METHOD 09/15/2024 1:11 PM [facility] LAB MPV 10.7 7.0 - 11.0 FL LAB HEMETOLOGY METHOD 09/15/2024 1:11 PM [facility] LAB NRBC 0.0 <1.0 % LAB HEMETOLOGY METHOD 09/15/2024 1:11 PM [facility] LAB NRBC Absolute 0.00 <0.10 K/mcL LAB HEMETOLOGY METHOD 09/15/2024 1:11 PM [facility] LAB Neutrophils Relative 75.9 % LAB HEMETOLOGY METHOD 09/15/2024 1:11 PM [facility] LAB Lymphocytes Relative 12.1 % LAB HEMETOLOGY METHOD 09/15/2024 1:11 PM [facility] LAB Monocytes Relative 7.8 % LAB HEMETOLOGY METHOD 09/15/2024 1:11 PM [facility] LAB Eosinophils Relative 2.9 % LAB HEMETOLOGY METHOD 09/15/2024 1:11 PM [facility] LAB Basophils Relative 0.5 % LAB HEMETOLOGY METHOD 09/15/2024 1:11 PM [facility] LAB Immature Granulocytes Relative 0.8 % LAB HEMETOLOGY METHOD 09/15/2024 1:11 PM [facility] LAB Neutrophils Absolute 13.08(H) 1.50 - 7.00 K/mcL LAB HEMETOLOGY METHOD 09/15/2024 1:11 PM [facility] LAB Lymphocytes Absolute 2.08 1.00 - 5.00 K/mcL LAB HEMETOLOGY METHOD 09/15/2024 1:11 PM [facility] LAB Monocytes Absolute 1.35(H) 0.20 - 1.00 K/mcL LAB HEMETOLOGY METHOD 09/15/2024 1:11 PM [facility] LAB Eosinophils Absolute 0.50 0.00 - 0.50 K/mcL LAB HEMETOLOGY METHOD 09/15/2024 1:11 PM [facility] LAB Basophils Absolute 0.08 0.00 - 0.20 K/mcL LAB HEMETOLOGY METHOD 09/15/2024 1:11 PM [facility] LAB Immature Granulocytes Absolute 0.14(H) 0.00 - 0.03 K/mcL LAB HEMETOLOGY METHOD 09/15/2024 1:11 PM [facility] LAB Blood Venous blood specimen / Unknown Venipuncture / Unknown 09/15/2024 6:00 AM EST 09/15/2024 10:50 AM EST us Danielito Lang MD LAB BLOOD ORDERABLES Final Result [facility] [address] [place] [address], from Last 3 Months Insurance [employer]AGE [facility] Advance Directives Documents on File Type Date Recorded Patient At Risk Specialist Expl anation Health Care Decision (hx) 09/28/2019 AD ENCARNACION DIRECTIVE Health Care Decision (hx) 09/28/2019 AD ENCARNACION DIRECTIVE Care Teams Enterprise Mobility Architect Relationship Specialty Start Date End Date Danielito Lang MD [address] [place] [id number] PCP - General Internal Medicine 09/15/24
--- OUTSIDE RECORDS SUMMARY | 2024-10-25 14:42 | XMS_ITS | Encounter Summary ---
Author Organization [facility] Address [address] [place] [address] Care Team Providers Care Mastic Man Name Role Phone Danielito Lang MD Primary Care Provider +1- [phone] Encounter Details Date Type Department Care Team (Late st Contact Info) Description 09/14/2024 Lab Requisition [facility] Lab [address] [facility] [place] [address] Danielito Lang MD [address] [place] [phone] Chronic kidney disease, stage 3 unspecified (CMS/HCC); [...] K/mcL LAB HEMETOLOGY METHOD 09/15/2024 1:11 PM [facility] LAB RBC 3.10(L) 3.80 - 4.80 M/mcL LAB HEMETOLOGY METHOD 09/15/2024 1:11 PM [facility] LAB Hemoglobin 9.6(L) 11.5 - 16.0 g/dL LAB HEMETOLOGY METHOD 09/15/2024 1:11 PM [facility] LAB Hematocrit 30.9(L) 35.0 - 47.0 % LAB HEMETOLOGY METHOD 09/15/2024 1:11 PM [facility] LAB MCV 99.7(H) 79.0 - 98.0 FL LAB HEMETOLOGY METHOD 09/15/2024 1:11 PM [facility] LAB MCH 31.0 27.0 - 32.0 pcg LAB HEMETOLOGY METHOD 09/15/2024 1:11 PM [facility] LAB MCHC 31.1(L) 32.0 - 37.0 g/dL LAB HEMETOLOGY METHOD 09/15/2024 1:11 PM [facility] LAB RDW 15.1(H) 11.0 - 15.0 % LAB HEMETOLOGY METHOD 09/15/2024 1:11 PM [facility] LAB Platelets 393 130 - 400 K/mcL LAB HEMETOLOGY METHOD 09/15/2024 1:11 PM [facility] LAB MPV 10.7 7.0 - 11.0 FL LAB HEMETOLOGY METHOD 09/15/2024 1:11 PM [facility] LAB NRBC 0.0 <1.0 % LAB HEMETOLOGY METHOD 09/15/2024 1:11 PM [facility] LAB NRBC Absolute 0.00 <0.10 K/mcL LAB HEMETOLOGY METHOD 09/15/2024 1:11 PM [facility] LAB Neutrophils Relative 75.9 % LAB HEMETOLOGY METHOD 09/15/2024 1:11 PM [facility] LAB Lymphocytes Relative 12.1 % LAB HEMETOLOGY METHOD 09/15/2024 1:11 PM [facility] LAB Monocytes Relative 7.8 % LAB HEMETOLOGY METHOD 09/15/2024 1:11 PM [facility] LAB Eosinophils Relative 2.9 % LAB HEMETOLOGY METHOD 09/15/2024 1:11 PM [facility] Basophils Relative 0.5 % LAB HEMETOLOGY METHOD 09/15/2024 1:11 PM [facility] LAB Immature Granulocytes Relative 0.8 % LAB HEMETOLOGY METHOD 09/15/2024 1:11 PM [facility] LAB Neutrophils Absolute 13.08(H) 1.50 - 7.00 K/mcL LAB HEMETOLOGY METHOD 09/15/2024 1:11 PM [facility] LAB Lymphocytes Absolute 2.08 1.00 - 5.00 K/mcL LAB HEMETOLOGY METHOD 09/15/2024 1:11 PM [facility] LAB Monocytes Absolute 1.35(H) 0.20 - 1.00 K/mcL LAB HEMETOLOGY METHOD 09/15/2024 1:11 PM [facility] LAB Eosinophils Absolute 0.50 0.00 - 0.50 K/mcL LAB HEMETOLOGY METHOD 09/15/2024 1:11 PM [facility] LAB Basophils Absolute 0.08 0.00 - 0.20 K/mcL LAB HEMETOLOGY METHOD 09/15/2024 1:11 PM [facility] LAB Immature Granulocytes Absolute 0.14(H) 0.00 - 0.03 K/mcL LAB HEMETOLOGY METHOD 09/15/2024 1:11 PM [facility] LAB Blood Venous blood specimen / Unknown Venipuncture / Unknown 09/15/2024 6:00 AM EST 09/15/2024 10:50 AM EST Danielito Lang MD LAB BLOOD ORDERABLES Final Result [facility] [address] [place] [address], [place] [phone] * (ABNORMAL) Comprehensive metabolic panel (09/15/2024 6:00 AM EST) Sodium 134 133 - 145 mmol/L LAB CHEMISTRY METHOD 09/15/2024 5:29 PM [facility] Potassium 4.4 3.5 - 5.5 mmol/L LAB CHEMISTRY METHOD 09/15/2024 5:29 PM [facility] Chloride 103 96 - 110 mmol/L LAB CHEMISTRY METHOD 09/15/2024 5:29 PM [facility] CO2 26 21 - 32 mmol/L LAB CHEMISTRY METHOD 09/15/2024 5:29 PM [facility] Anion Gap 5 3 - 11 LAB CHEMISTRY METHOD 09/15/2024 5:29 PM [facility] Glucose 82 70 - 100 mg/dL LAB CHEMISTRY METHOD 09/15/2024 5:29 PM [facility] BUN 13 5 - 25 mg/dL LAB CHEMISTRY METHOD 09/15/2024 5:29 PM [facility] Creatinine 0.44(L) 0.50 - 1.10 mg/dL LAB CHEMISTRY METHOD 09/15/2024 5:29 PM [facility] LAB eGFR 97 >=60 mL/min/1. 73m2 LAB CHEMISTRY METHOD 09/15/2024 5:29 PM [facility] LAB Comment:Calculation based on the??Chronic Kidney Disease Epidemiology Collaboration (CKD-EPI) equation refit??without adjustment for race. BUN/Creatinine Ratio 29.5 LAB CHEMISTRY METHOD 09/15/2024 5:29 PM [facility] Calcium 8.3(L) 8.5 - 10.5 mg/dL LAB CHEMISTRY METHOD 09/15/2024 5:29 PM [facility] LAB AST (SGOT) 58(H) 10 - 42 unit/L LAB CHEMISTRY METHOD 09/15/2024 5:29 PM [facility] ALT (SGPT) 70(H) 10 - 60 unit/L LAB CHEMISTRY METHOD 09/15/2024 5:29 PM [facility] Alkaline Phosphatase 116 42 - 121 unit/L LAB CHEMISTRY METHOD 09/15/2024 5:29 PM [facility] Total Protein 5.4(L) 6.0 - 8.0 g/dL LAB CHEMISTRY METHOD 09/15/2024 5:29 PM [facility] Albumin 2.3(L) 3.2 - 5.0 g/dL LAB CHEMISTRY METHOD 09/15/2024 5:29 PM [facility] Total Bilirubin 1.2 0.0 - 1.4 mg/dL LAB CHEMISTRY METHOD 09/15/2024 5:29 PM [facility] Blood Venous blood specimen / Unknown Venipuncture / Unknown 09/15/2024 6:00 AM EST 09/15/2024 10:50 AM EST us Danielito Lang MD LAB BLOOD ORDERABLES Final Result [facility] [address] [place] [address], documented in this encounter Visit Diagnoses Diagnosis Chronic kidney disease, stage 3 unspecified (CMS/HCC) Anemia, unspecified documented in this encounter Care Teams Mastic Man Relationship Specialty Start Date End Date Danielito Lang MD [address] [place] [address] PCP - General Internal Medicine 09/15/24 documented as of this encounter
--- OUTSIDE RECORDS SUMMARY | 2024-10-25 14:42 | XMS_ITS | Encounter Summary ---
Author Organization [facility] Address [address] [place] [address] Care Team Providers Care Dictating Transcribing Machine Servicer Name Role Phone Danielito Lang MD Primary Care Provider +1- [phone] Encounter Details Date Type Department Care Team (Late st Contact Info) Description 09/19/2024 Lab Requisition [facility] - Main Lab [address] [facility] [place] [address] Danielito Lang MD [address] [place] [phone] Anemia, unspecified; Chronic kidney disease, stage 2 [...] mmol/L LAB CHEMISTRY METHOD 09/20/2024 11:52 AM [facility] LAB Potassium 5.2 3.5 - 5.5 mmol/L LAB CHEMISTRY METHOD 09/20/2024 11:52 AM [facility] LAB Chloride 109 96 - 110 mmol/L LAB CHEMISTRY METHOD 09/20/2024 11:52 AM [facility] LAB CO2 26 21 - 32 mmol/L LAB CHEMISTRY METHOD 09/20/2024 11:52 AM [facility] LAB Anion Gap 6 3 - 11 LAB CHEMISTRY METHOD 09/20/2024 11:52 AM [facility] LAB Glucose 76 70 - 100 mg/dL LAB CHEMISTRY METHOD 09/20/2024 11:52 AM [facility] BUN 18 5 - 25 mg/dL LAB CHEMISTRY METHOD 09/20/2024 11:52 AM [facility] LAB Creatinine 0.52 0.50 - 1.10 mg/dL LAB CHEMISTRY METHOD 09/20/2024 11:52 AM [facility] LAB eGFR 93 >=60 mL/min/1. 73m2 LAB CHEMISTRY METHOD 09/20/2024 11:52 AM [facility] LAB Comment:Calculation based on the??Chronic Kidney Disease Epidemiology Collaboration (CKD-EPI) equation refit??without adjustment for race. BUN/Creatinine Ratio 34.6 LAB CHEMISTRY METHOD 09/20/2024 11:52 AM [facility] LAB Calcium 8.3(L) 8.5 - 10.5 mg/dL LAB CHEMISTRY METHOD 09/20/2024 11:52 AM [facility] LAB Blood Venous blood specimen / Unknown Venipuncture / Unknown 09/20/2024 5:02 AM EST 09/20/2024 10:59 AM EST us Danielito Lang MD LAB BLOOD ORDERABLES Final Result [facility] [address] [place] [address], * (ABNORMAL) Complete blood count (09/20/2024 5:02 AM EST) [facility] Signature WBC 12.9(H) 4.8 - 10.8 K/mcL LAB HEMETOLOGY METHOD 09/20/2024 11:41 AM [facility] LAB RBC 3.00(L) 3.80 - 4.80 M/mcL LAB HEMETOLOGY METHOD 09/20/2024 11:41 AM [facility] LAB Hemoglobin 9.1(L) 11.5 - 16.0 g/dL LAB HEMETOLOGY METHOD 09/20/2024 11:41 AM [facility] LAB Hematocrit 30.1(L) 35.0 - 47.0 % LAB HEMETOLOGY METHOD 09/20/2024 11:41 AM [facility] LAB MCV 101.7(H) 79.0 - 98.0 FL LAB HEMETOLOGY METHOD 09/20/2024 11:41 AM [facility] LAB MCH 30.7 27.0 - 32.0 pcg LAB HEMETOLOGY METHOD 09/20/2024 11:41 AM [facility] LAB MCHC 30.2(L) 32.0 - 37.0 g/dL LAB HEMETOLOGY METHOD 09/20/2024 11:41 AM [facility] LAB RDW 15.1(H) 11.0 - 15.0 % LAB HEMETOLOGY METHOD 09/20/2024 11:41 AM [facility] LAB Platelets 541(H) 130 - 400 K/mcL LAB HEMETOLOGY METHOD 09/20/2024 11:41 AM [facility] LAB MPV 10.4 7.0 - 11.0 FL LAB HEMETOLOGY METHOD 09/20/2024 11:41 AM EST [facility] NRBC 0.0 <1.0 % LAB HEMETOLOGY METHOD 09/20/2024 11:41 AM EST [facility] NRBC Absolute 0.00 <0.10 K/mcL LAB HEMETOLOGY METHOD 09/20/2024 11:41 AM EST [facility] Blood Venous blood specimen / Unknown Venipuncture / Unknown 09/20/2024 5:02 AM EST 09/20/2024 10:59 AM EST us Danielito Lang MD LAB BLOOD ORDERABLES Final Result [facility] [address] [place] [address], documented in this encounter Visit Diagnoses Diagnosis Anemia, unspecified Chronic kidney disease, stage 2 (mild) documented in this encounter Care Teams Dictating Transcribing Machine Servicer Relationship Specialty Start Date End Date Danielito Lang MD [address] [place] [id number] PCP - General Internal Medicine 09/15/24 documented as of this encounter
--- OUTSIDE RECORDS SUMMARY | 2024-10-25 14:42 | XMS_ITS | Encounter Summary ---
Author Organization [facility] Address [address] [place] [address] Care Team Providers Care Shank Breaker Name Role Phone Danielito Lang MD Primary Care Provider +1- [phone] Encounter Details Date Type Department Care Team (Late st Contact Info) Description 10/03/2024 Lab Requisition [facility] - Main Lab [address] [facility] [place] [address] Danielito Lang MD [address] [place] [address] Anemia, unspecified; Chronic kidney disease, stage 2 [...] mmol/L LAB CHEMISTRY METHOD 10/04/2024 11:47 AM [facility] Potassium 4.2 3.5 - 5.5 mmol/L LAB CHEMISTRY METHOD 10/04/2024 11:47 AM [facility] Chloride 111(H) 96 - 110 mmol/L LAB CHEMISTRY METHOD 10/04/2024 11:47 AM [facility] CO2 26 21 - 32 mmol/L LAB CHEMISTRY METHOD 10/04/2024 11:47 AM [facility] Anion Gap 7 3 - 11 LAB CHEMISTRY METHOD 10/04/2024 11:47 AM [facility] Glucose 87 70 - 100 mg/dL LAB CHEMISTRY METHOD 10/04/2024 11:47 AM [facility] BUN 7 5 - 25 mg/dL LAB CHEMISTRY METHOD 10/04/2024 11:47 AM [facility] Creatinine 0.48(L) 0.50 - 1.10 mg/dL LAB CHEMISTRY METHOD 10/04/2024 11:47 AM [facility] eGFR 95 >=60 mL/min/1. 73m2 LAB CHEMISTRY METHOD 10/04/2024 11:47 AM [facility] Comment:Calculation based on the??Chronic Kidney Disease Epidemiology Collaboration (CKD-EPI) equation refit??without adjustment for race. BUN/Creatinine Ratio 14.6 LAB CHEMISTRY METHOD 10/04/2024 11:47 AM [facility] Calcium 8.5 8.5 - 10.5 mg/dL LAB CHEMISTRY METHOD 10/04/2024 11:47 AM [facility] Blood Venous blood specimen / Unknown Venipuncture / Unknown 10/04/2024 7:40 AM EDT 10/04/2024 10:03 AM EDT us Danielito Lang MD LAB BLOOD ORDERABLES Final Result [facility] [address] [place] [address], * (ABNORMAL) Complete blood count (10/04/2024 7:40 AM EDT) [facility] Signature WBC 7.2 4.8 - 10.8 K/mcL LAB HEMETOLOGY METHOD 10/04/2024 10:36 AM EDT [facility] RBC 3.20(L) 3.80 - 4.80 M/mcL LAB HEMETOLOGY METHOD 10/04/2024 10:36 AM EDT [facility] Hemoglobin 10.1(L) 11.5 - 16.0 g/dL LAB HEMETOLOGY METHOD 10/04/2024 10:36 AM EDT [facility] Hematocrit 33.2(L) 35.0 - 47.0 % LAB HEMETOLOGY METHOD 10/04/2024 10:36 AM EDT [facility] MCV 103.4(H) 79.0 - 98.0 FL LAB HEMETOLOGY METHOD 10/04/2024 10:36 AM EDT [facility] MCH 31.5 27.0 - 32.0 pcg LAB HEMETOLOGY METHOD 10/04/2024 10:36 AM EDT [facility] MCHC 30.4(L) 32.0 - 37.0 g/dL LAB HEMETOLOGY METHOD 10/04/2024 10:36 AM EDT [facility] RDW 15.9(H) 11.0 - 15.0 % LAB HEMETOLOGY METHOD 10/04/2024 10:36 AM EDT [facility] Platelets 363 130 - 400 K/mcL LAB HEMETOLOGY METHOD 10/04/2024 10:36 AM EDT [facility] MPV 10.6 7.0 - 11.0 FL LAB HEMETOLOGY METHOD 10/04/2024 10:36 AM EDT [facility] NRBC 0.0 <1.0 % LAB HEMETOLOGY METHOD 10/04/2024 10:36 AM EDT [facility] NRBC Absolute 0.00 <0.10 K/mcL LAB HEMETOLOGY METHOD 10/04/2024 10:36 AM EDT [facility] Blood Venous blood specimen / Unknown Venipuncture / Unknown 10/04/2024 7:40 AM EDT 10/04/2024 10:03 AM EDT us Danielito Lang MD LAB BLOOD ORDERABLES Final Result [facility] [address] [place] [address], documented in this encounter Visit Diagnoses Diagnosis Anemia, unspecified Chronic kidney disease, stage 2 (mild) documented in this encounter Care Teams Shank Breaker Relationship Specialty Start Date End Date Danielito Lang MD [address] [place] [address] PCP - General Internal Medicine 09/15/24 documented as of this encounter
--- OUTSIDE RECORDS SUMMARY | 2024-10-25 14:42 | XMS_ITS | Encounter Summary ---
Author Organization [facility] Address [address] [place] [address] Care Team Providers Care Automotive Window Tinter Name Role Phone Danielito Lang MD Primary Care Provider +1- [phone] Encounter Details Date Type Department Care Team (Late st Contact Info) Description 09/26/[address] [facility] - Main Lab [address] [facility] [place] [address] Danielito Lang MD [address] [place] [address] Anemia, unspecified; Chronic kidney disease, stage 2 [...] 73m2 LAB CHEMISTRY METHOD 09/27/2024 1:[address] [facility] Comment:Calculation based on the??Chronic Kidney Disease Epidemiology Collaboration (CKD-EPI) equation refit??without adjustment for race. BUN/Creatinine Ratio 20.8 LAB CHEMISTRY METHOD 09/27/2024 1:[address] [facility] Calcium 8.3(L) 8.5 - 10.5 mg/dL LAB CHEMISTRY METHOD 09/27/2024 1:[address] [facility] AST (SGOT) 25 10 - 42 unit/L LAB CHEMISTRY METHOD 09/27/2024 1:[address] [facility] ALT (SGPT) 30 10 - 60 unit/L LAB CHEMISTRY METHOD 09/27/2024 1:18 PM EDT [facility] Alkaline Phosphatase 203(H) 42 - 121 unit/L LAB CHEMISTRY METHOD 09/27/2024 1:18 PM EDT [facility] Total Protein 5.5(L) 6.0 - 8.0 g/dL LAB CHEMISTRY METHOD 09/27/2024 1:18 PM EDT [facility] Albumin 2.6(L) 3.2 - 5.0 g/dL LAB CHEMISTRY METHOD 09/27/2024 1:18 PM EDT [facility] Total Bilirubin 0.7 0.0 - 1.4 mg/dL LAB CHEMISTRY METHOD 09/27/2024 1:18 PM EDT [facility] Blood Venous blood specimen / Unknown Venipuncture / Unknown 09/27/2024 8:43 AM EDT 09/27/2024 10:31 AM EDT us Danielito Lang MD LAB BLOOD ORDERABLES Final Result [facility] [address] [place] [address], * (ABNORMAL) Complete blood count (09/27/2024 8:43 AM EDT) WBC 8.1 4.8 - 10.8 K/mcL LAB HEMETOLOGY METHOD 09/27/2024 12:06 PM EDT [facility] RBC 3.10(L) 3.80 - 4.80 M/mcL LAB HEMETOLOGY METHOD 09/27/2024 12:06 PM EDT [facility] Hemoglobin 9.6(L) 11.5 - 16.0 g/dL LAB HEMETOLOGY METHOD 09/27/2024 12:06 PM EDT [facility] Hematocrit 31.7(L) 35.0 - 47.0 % LAB HEMETOLOGY METHOD 09/27/2024 12:06 PM EDT [facility] MCV 101.9(H) 79.0 - 98.0 FL LAB HEMETOLOGY METHOD 09/27/2024 12:06 PM EDT [facility] MCH 30.9 27.0 - 32.0 pcg LAB HEMETOLOGY METHOD 09/27/2024 12:06 PM EDT [facility] MCHC 30.3(L) 32.0 - 37.0 g/dL LAB HEMETOLOGY METHOD 09/27/2024 12:06 PM EDT [facility] RDW 15.9(H) 11.0 - 15.0 % LAB HEMETOLOGY METHOD [facility] Platelets 548(H) 130 - 400 K/mcL LAB HEMETOLOGY METHOD 09/27/2024 12:06 PM EDT [facility] MPV 9.8 7.0 - 11.0 FL LAB HEMETOLOGY METHOD 09/27/2024 12:06 PM EDT [facility] NRBC 0.0 <1.0 % LAB HEMETOLOGY METHOD 09/27/2024 12:[address] [facility] NRBC Absolute 0.00 <0.10 K/mcL LAB HEMETOLOGY METHOD 09/27/2024 12[facility] Blood Venous blood specimen / Unknown Venipuncture / Unknown 09/27/2024 8:43 AM EDT 09/27/2024 10:31 AM EDT us Danielito Lang MD LAB BLOOD ORDERABLES Final Result [facility] [address] [place] [address], documented in this encounter Visit Diagnoses Diagnosis Anemia, unspecified Chronic kidney disease, stage 2 (mild) Elevated white blood cell count, unspecified documented in this encounter Care Teams Automotive Window Tinter Relationship Specialty Start Date End Date Danielito Lang MD [address] [place] [address] PCP - General Internal Medicine 09/15/24 documented as of this encounter
== END 2024-10-25 14:40 | disposition home or self-care (01) ==
PROVIDERS: PCP Internal Medicine; Visit Provider Internal Medicine
DX: I48.91 Unspecified atrial fibrillation (principal); I10 Essential (primary) hypertension; E66.9 Obesity, unspecified; E78.5 Hyperlipidemia, unspecified; Z68.39 Body mass index [BMI] 39.0-39.9, adult; E55.9 Vitamin D deficiency, unspecified

== ENCOUNTER → 2024-10-25 12:05 | Outpatient (BNVA) | payer MEDICARE, SELFPAY | PROVIDERS: PCP Internal Medicine; Visit Provider Internal Medicine | DX: I48.91 Unspecified atrial fibrillation (principal); I10 Essential (primary) hypertension; E66.9 Obesity, unspecified; E78.5 Hyperlipidemia, unspecified; E55.9 Vitamin D deficiency, unspecified; R60.9 Edema, unspecified; R73.9 Hyperglycemia, unspecified; Z79.899 Other long term (current) drug therapy; Z68.39 Body mass index [BMI] 39.0-39.9, adult | CPT/HCPCS: 99212 ==

== ENCOUNTER 2024-11-09 14:53 | Outpatient (REF) | payer MEDICARE, SELFPAY ==
[2024-11-09 16:14] LABS: Alanine Aminotransferase 23 U/L (0-31); Albumin Level 3.8 g/dL (3.5-5.0); Alkaline Phosphatase 202 U/L (39-117); Anion Gap 13 (12-20); Aspartate Amino Transferase 35 U/L (5-31); Bilirubin Total 0.4 mg/dL (0.0-1.0); Blood Urea Nitrogen 9 mg/dL (9-16); Calcium 9.5 mg/dL (8.4-10.2); Carbon Dioxide 27 mmol/L (22-29); Chloride 106 mmol/L (96-108); Estimated Glomerular Filt Rate > 60; Glucose Random 94 mg/dL (60-115); Potassium 4.2 mmol/L (3.3-5.1); Sodium 142 mmol/L (135-145); Total Protein 6.9 g/dL (6.5-8.0)
[2024-11-09 16:34] LABS: B Type Natriuretic Peptide 346 pg/mL (<100)
--- OUTSIDE RECORDS SUMMARY | 2024-11-09 17:45 | XMS_ITS | Data Portability ---
Author Organization [place] - [facility], [facility] Address [address] [place] [address] Care Team Providers Care Investment Executive Name Role Phone FRANCIA WILLANNA Primary Care Provider Assessment Encounter Date Assessment Date Assessment LastModified by Organization Details LastModified Time 11/09/2024 11/09/2024 HPI: 84-year-old female presents for follow-up of right interprosthetic distal third femur fracture status post nail plate combination construct performed on 09/10/2024. Subjective: Patient reports the leg was doing well until about three days ago when she experienced increased pain. She describes pain radiating from her back into the hip area and down into the back of the buttock. Minimal pain noted in the femur region. Patient reports significant leg swelling, which worsens after showering. She has difficulty bending, turning, or moving due to pain. Patient mentions she went to bed at 7:00 PM the previous night due to severe pain. She reports difficulty putting on compression stockings and often wears bed slippers at home. Patient mentions a recent hospitalization for heart failure, lasting almost a week. She is not currently driving and finds it challenging to get rides for appointments. Patient reports taking Tramadol and Tylenol for pain management, with concerns about elevated liver enzymes. She mentions previous use of gabapentin for nerve pain but experienced side effects including nausea and dizziness. Patient is taking vitamin D. Objective: Physical Exam: - Incisions: Excellent appearance - Range of motion: Full terminal extension - Knee flexion: Approximately 110-120 degrees - Bilateral lower extremity edema noted, more pronounced in the affected leg Imaging: Imaging ordered, obtained and reviewed at [facility]. X-rays of the right femur (AP and lateral views) demonstrate: - Well-reduced fracture - No significant interim displacement - No hardware failure or other complications - Minimal bone formation visible - Shadowing posteriorly and laterally at implant exit points, suggestive of early bone healing Assessment: 1. Right interprosthetic distal third femur fracture, status post nail plate combination construct, healing appropriately 2. Bilateral lower extremity edema, likely multifactorial (post-operative, heart failure) 3. Low back pain with radicular symptoms 4. Chronic pain Plan: - Continue weight-bearing as tolerated on the right lower extremity - Continue vitamin D supplementation - Prescribe Tramadol for pain management - Start low-dose gabapentin with slow titration for radicular back pain - Continue home physical therapy, transition to outpatient when appropriate - Discuss lymphedema management options with tower hand at upcoming appointment - Follow up in one month - Patient advised to contact the office for any concerns in the interim Disclaimer: This note was accomplished with use of [employer] software, which is prone to medical and other word misidentifications , grammatical errors, and other misinterpretations . The physician does strive to identify and correct these, but some could still be present. Please do not hesitate to contact the physician for clarifications. [email or web address] Not available 11/09/2024 16:40:45 Plan of Treatment Reminders Order Date Submit Date Provider Last Modified By Organization Details Last Modified Time Details Appointments RECHECK 15 2024 01:00P M Dru Davis MD Not available Not available Not available RECHECK 15 2024 02:45P Pancho kenny PA-C Not available Not available Not available Lab None recorded. Referral None recorded. Procedures None recorded. Surgeries None recorded. Imaging XR, femur, 2 or more view - 312 2V RIGHT FEMUR - WAITING NEAR XRAY 2024 025 RAÚL Davis Office, [facility] [address], [facility] [address], [place], [address], 11/09/2024 13:29:21 Medication Orders tramadol 50 mg tablet 2024 025 [facility], [address] [place] [address], [address], 11/09/2024 16:41:25 gabapenti n 300 mg capsule 2024 025 [facility], [address] [place] [address], [address], 11/09/2024 13:57:50 Patient TargetsNo targets recorded. Patient InstructionsNo instructions recorded. Reason for Referral None Reported. Results Created Date Observation Date Name Description Value Unit Range Abnormal Flag Note LastModifiedBy Organization Detail LastModifiedTime 11/10/19 25 11/09/2024 XR, femur , 2 or more view [email or web address] ?Encry pted=s hAaTro YD8dLq bEUv6g %2BXZw aYqtaq 0bqfl% 2Fg9IQ a4ajBk vP9nXo QUaueC m3YtLR FvZlgJ JJ8mAn HZtai3 1u9647 AC0Kla n2NUKK jKiQtr MwF INTERFACE [facility] [address], [place], [address], 11/09/2024 13:29:21 11/10/19 25 11/09/2024 XR, femur , 2 or more view [email or web address] ?Encry pted=s hAaTro YD8dLq bEUv6g %2BXZw aYqtaq 0bqfl% 2Fg9IQ a4ajBk vP9nXo QUaueC m3YtLR FvZlgJ JJ8mAn HZtai3 0k3014 AC0Kla n2NUKK jKiQtr MwF INTERFACE [facility] [address] [facility] [address], [place], [address], 11/09/2024 13:29:23 Result Notes None recorded. 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 Procedures Surgical History None recorded. Imaging Results Imaging Date Name Status LastModified by Organiz ation Details LastModified Time 11/09/2024 XR, femur, 2 or more view completed [facility] [address], [place], [address], 11/09/2024 13:29:21 11/09/2024 XR, femur, 2 or more view completed [facility] [address], [place], [address], 11/09/2024 13:29:23 Procedure Notes None recorded. Medical Equipment None Reported. Allergies Allergen ID Allergen Name Allergen Category Reaction Reaction Severity Criticality Documentation Date Start Date Code Code System Note Provider Name and Address Organization Details Recorded Time 35059 Substance with sulfonami de structure and antibacte rial mechanism of action (substanc e) medicatio n Not available Not available Not available 09/21/20232004 55029 8003 SNOMED Aller gyRea ction : 'X'; Not Available [facility] 4 12:57:45 98594 latex environme nt,medica tion Not available Not available Not available 09/21/20232004 82686 91 RxNorm Aller gyRea ction : 'X'; Not Available [facility] 4 12:57:45 87133 iodine medicatio n Not available Not available Not available 09/21/20232010 5933 RxNorm Aller gyRea ction : 'Skin React ion'; Not Available [facility] 4 12:57:45 Medications Name Sig Start Date Stop Date Status Note LastModified by Organization Details LastModified Time doxycycline hyclate 100 mg capsule TAKE 1 CAPSULE BY MOUTH TWICE DAILY active Not Available Not Available No t Available atorvastatin 20 mg tablet TAKE 1 TABLET BY MOUTH ONCE DAILY active Not Available Not Available No t Available azithromycin 250 mg tablet TAKE 2 TABLETS BY MOUTH ON DAY 1, AND THEN TAKE 1 TABLET BY MOUTH ONCE A DAY ON DAY 2 THROUGH DAY 5 active Not Available Not Available No t Available benzonatate 200 mg capsule TAKE 1 CAPSULE BY MOUTH THREE TIMES DAILY NEEDED FOR COUGH active Not Available Not Available No t Available metoprolol succinate ER 100 mg tablet,exten ded release 24 hr TAKE 1 TABLET BY MOUTH EVERY DAY active Not Available Not Available No t Available amlodipine 2.5 mg tablet TAKE 1 TABLET BY MOUTH ONCE DAILY active Not Available Not Available No t Available tramadol 50 mg tablet Take 1 tablet(s) EVERY 8 HOURS by oral route as needed for pain. 2024 active Not Available Not Available Not Avai lable benzonatate 100 mg capsule TAKE 1 CAPSULE BY MOUTH TWICE DAILY NEEDED FOR COUGH active Not Available Not Available No t Available valsartan 320 mg tablet TAKE 1 TABLET BY MOUTH ONCE DAILY active Not Available Not Available No t Available flecainide 50 mg tablet TAKE 1 TABLET BY MOUTH EVERY 12 HOURS active Not Available Not Available No t Available gabapentin 300 mg capsule TAKE 1 CAPSULE ONCE DAILY FOR 3 DAYS THEN TAKE 1 CAPSULE TWICE DAILY FOR 3 DAYS THEN TAKE 1 CAPSULE 3 TIMES DAILY 2024 active Not Available Not Available Not Avai lable furosemide 20 mg tablet TAKE 1 TABLET BY MOUTH EVERY DAY active Not Available Not Available No t Available estradiol 0.01% (0.1 mg/gram) vaginal cream INSERT 1 GRAM VAGINALLY TWICE DAILY active Not Available Not Available Not Available nitrofuranto in monohydrate/ macrocrystal s 100 mg capsule TAKE 1 CAPSULE BY MOUTH EVERY 12 HOURS FOR 7 DAYS. MUST ADMINISTER WITH MEAL/FOOD. active Not Available Not Available N ot Available Eliquis 5 mg tablet TAKE 1 TABLET BY MOUTH TWICE DAILY active Not Available Not Available No t Available Vitals Date Recorded Body height Body mass index (BMI) Body weight Provider Name and Address Organization Details Last Updated DateTime 09/28/2024 162.56 cm 39.7 kg/m2 125744.84 g FANNIE CERVANTES [facility] 09/28/2024 11:27:12 Date Recorded Body height Body mass index (BMI) Body weight Provider Name and Address Organization Details Last Updated DateTime 11/09/2024 162.56 cm 39.7 kg/m2 908169.84 g CHRISTOPHER MARTÍNEZ [facility] 11/09/2024 13:11:28 Social History None recorded. Functional Status None recorded. Mental Status None recorded. Family History Nothing Reported. Medical History No medical history recorded. Gynecological HistoryNo gynecological history recorded. Obstetrics History GPAL:G 0 P 0 0 0 0 Past Encounters Encounter ID Performer Location Encounter Start Date Encounter Closed Date Diagnosis/Indication Diagnosis SNOMED-CT Code Diagnosis ICD10 Code Diagnosis Note [id number] Betty Conn CNP [facility] [address] [place] [address] 09/28/2024 10:46:32 10/12/2024 14:27:06 Postoperative visit 218381356 Z48.89 Periprosth etic fracture 526022981 M97.8XXA Z96.223 [id number] MD [facility] [address] [place] [address] 11/09/2024 12:54:57 11/09/2024 16:41:58 Closed fracture of shaft of femur 12839070 S72.341A Health Concerns Section Related Observation LastModified by Organization Detai ls LastModified Time None Recorded Concern Status LastModified by Organization Details LastModified Time None Recorded Advance Directives Directive None Recorded Payers Encounter Date Sequence Insurance Name Policy Number Policy Barrios Covered Member ID Barrios Member ID Guarantor Name 09/28/2024 1 [facility] (MEDICARE REPLACEMENT/ ADVANTAGE - PPO) [id number] Mary N N Plasse [id number] Mary N Plasse 11/09/2024 1 [facility] (MEDICARE REPLACEMENT/ ADVANTAGE - PPO) [id number] Mary N N Plasse [id number] Mary N Plasse Notes Date Note Type Note Provider Name and Address Organization Details Recorded Time 09/28/2024 text/html I am seeing the patient today under the supervision of Dr. Radford who was available but who did not see the patient. Surgery: ORIF right anterior prosthetic femoral shaft fracture with nail plate combination construct. ROYAL and TKR presentDate of surgery: 09/10/2024Surgeon: Dr. Davis HPI: 84-year-old woman presents status post above surgery. Currently staying at a rehab facility. In wheelchair for exam. Reports little to no pain. Denies paresthesias. Reports new onset atrial fibrillation and recently started on Eliquis. Has been working with physical therapy but still quite weak. Past family, medical, social history and review of symptoms have been reviewed, updated, and it is located in the patient's chart. MSK: examination of the right legseated in wheelchair. Obese.- inspection:---- skin - surgical incision benign without any evidence of infection. [place] removed Steri-Strips applied---- edema - none---- ecchymosis - none---- deformity - none- ROM:---- Full: Able to demonstrate hip flexion, abduction, adduction, quad raise with some weakness---- Able to tolerate passive hip flexion with IR/ER with minimal discomfort, stiff--- knee ROM 0-80--- +D/P- Palpation:---- tenderness - none----Calves supple, tender on the right-Vascularity---- 2+ pedal pulse- Sensation--- positive sensation to touch IMAGING: not indicated today IMPRESSION & PLAN: Findings and situation discussed with patient. Recommendations to rehab-WBAT RLE with walker and assist- daily PT/OT ROM, strengthening, gait training, fall prevention, transfers.- steri strips applied. will fall off on their own in 10-14 days. shower, pat dry, do not submerge in water. No lotions or creams to incisions. Reviewed S&S of infection and call if concerns- Due to calf pain/tenderness please evaluate for need for ultrasound. She is on Eliquis- pain meds and discharge planning per facility FOLLOW UP: 4-[address] Davis Speech recognition superintendent maintenance software was used to create portions of this document. An attempt at proofreading has been made to minimize errors. Please call for corrections. Betty Conn, GARMENT SORTER [address], [place], [address], [facility] - [facility] 09/28/2024 11:31:02 OBGyn Episode No OBEpisode recorded.
--- OUTSIDE RECORDS SUMMARY | 2024-11-09 17:45 | XMS_ITS | Continuity of Care Document ---
Author Organization [place] - [facility] Address [address] [place] [address] Care Team Providers Care Press Operator [employer] Name Role Phone VALENTIN WILL Primary Care Provider Assessment Encounter Date Assessment [...] Imaging: Imaging ordered, obtained and reviewed at [facility]. X-rays of the right femur (AP and [...] appropriate - Discuss lymphedema management options with stone layout marker at upcoming appointment - Follow up in one month - Patient advised to contact the office for any concerns in the interim Disclaimer: This note was accomplished with use of anchor.travel software, which is prone to medical and [...] available Not available RECHECK 15 2024 02:45P M Dena kenny PA-C Not available Not available Not available Lab None recorded. Referral None recorded. Procedures None recorded. Surgeries None recorded. Imaging XR, femur, 2 or more view - 312 2V RIGHT FEMUR - WAITING NEAR XRAY 2024 025 [facility], [address], [address], [place], [address], 11/09/2024 13:29:21 Medication Orders tramadol 50 mg tablet 2024 025 [facility], [address] [place] [address], [place], [address], 11/09/2024 16:41:25 gabapenti n 300 mg capsule 2024 025 [facility], [address] [place] [address], [place], [address], 11/09/2024 13:57:50 Patient TargetsNo targets recorded. Patient InstructionsNo instructions recorded. Reason for Referral None Reported. Results Created Date Observation Date Name Description Value Unit Range Abnormal Flag Note LastModifiedBy Organization Detail LastModifiedTime 11/10/19 25 11/09/2024 XR, femur , 2 or more view [email or web address] ?Encry pted=s hAaTro YD8dLq bEUv6g %2BXZw aYqtaq 0bqfl% 2Fg9IQ a4ajBk vP9nXo QUaueC m3YtLR FvZlgJ JJ8mAn HZtai3 7u4168 AC0Kla n2NUKK jKiQtr MwF INTERFACE [facility] [address] [facility] [address], [place], [address], 11/09/2024 13:29:21 11/10/19 25 11/09/2024 XR, femur , 2 or more view http:/ [email or web address] ?Encry pted=s hAaTro YD8dLq bEUv6g %2BXZw aYqtaq 0bqfl% 2Fg9IQ a4ajBk vP9nXo QUaueC m3YtLR FvZlgJ JJ8mAn HZtai3 7j3928 AC0Kla n2NUKK jKiQtr MwF INTERFACE [facility] [address] [facility] [address], [place], [address], 11/09/2024 13:29:23 Result Notes None recorded. Problems Name Problem SNOMED Code Status Onset Date Resolution Date Notes Provider Name and Address Organization Details Recorded Time Closed fracture of shaft of femur 41561284 Active 2024 CHRISTOPHER coleman [place] - [facility] 13:10:15 Idiopathic osteoarthri tis 936938265 Active 2015 Problem Code: M16.11; Problem Code Type: ICD-10; Status: 'A'; Not Available [facility] 11:28:25 Problem Notes None recorded. Medical Equipment None Reported. Allergies Allergen ID Allergen Name Allergen Category Reaction Reaction Severity Criticality Documentation Date Start Date Code Code System Note Provider Name and Address Organization Details Recorded Time 59017 Substance with sulfonami de structure and antibacte rial mechanism of action (substanc e) medicatio n Not available Not available Not available 09/21/20232004 56357 8003 SNOMED Aller gyRea ction : 'X'; Not Available [facility] 4 12:57:45 03470 latex environme nt,medica tion Not available Not available Not available 09/21/20232004 97714 91 RxNorm Aller gyRea ction : 'X'; Not Available [facility] 12:57:45 64320 iodine medicatio n Not available Not available Not available 09/21/20232010 5933 RxNorm Aller gyRea ction : 'Skin React ion'; Not Available [facility] 4 12:57:45 Medications Name Sig Start [...] Updated DateTime 11/09/2024 162.56 cm 39.7 kg/m2 858364.84 g CHRISTOPHER MARTÍNEZ [place] - [facility] 11/09/2024 13:11:28 Social History None recorded. Functional Status None recorded. Mental Status None recorded. Family History Nothing Reported. Medical History No medical history recorded. Gynecological HistoryNo gynecological history recorded. Obstetrics History GPAL:G 0 P 0 0 0 0 Past Encounters Encounter ID Performer Location Encounter Start Date Encounter Closed Date Diagnosis/Indication Diagnosis SNOMED-CT Code Diagnosis ICD10 Code Diagnosis Note [id number] [facility] 3rd floor [address] [place] [address] 11/09/2024 12:54:57 11/09/2024 16:41:58 Closed fracture of shaft of femur 60993898 S72.341A Health Concerns Section Related Observation LastModified by Organization Detai ls LastModified Time None Recorded Concern Status LastModified by Organization Details LastModified Time None Recorded Payers Encounter Date Sequence Insurance Name Policy Number Policy Barrios Covered Member ID Barrios Member ID Guarantor Name 11/09/2024 1 [facility] (MEDICARE REPLACEMENT/ ADVANTAGE - PPO) [id number] Mary N N Plasse [id number] Mary N Plasse OBGyn Episode No OBEpisode recorded.
--- OUTSIDE RECORDS SUMMARY | 2024-11-09 17:45 | XMS_ITS | Encounter Summary ---
Author Organization [facility] Address [address] [place] [address] Care Team Providers Care Daycare Manager Name Role Phone Danielito Lang MD Primary Care Provider +1- [phone] Encounter Details Date Type Department Care Team (Late st Contact Info) Description 09/14/2024 Lab Requisition [facility] - Main Lab [address] [facility] [place] [address] Danielito Lang MD [address] [place] [phone] Chronic kidney disease, stage 3 unspecified (CMS/HCC V24, CMS/HCC V28); Anemia, unspecified Social History Tobacco Use Types [...] K/mcL LAB HEMETOLOGY METHOD 09/15/2024 1:11 PM [facility] RBC 3.10(L) 3.80 - 4.80 M/mcL LAB HEMETOLOGY METHOD 09/15/2024 1:11 PM [facility] Hemoglobin 9.6(L) 11.5 - 16.0 g/dL LAB HEMETOLOGY METHOD 09/15/2024 1:11 PM [facility] Hematocrit 30.9(L) 35.0 - 47.0 % LAB HEMETOLOGY METHOD 09/15/2024 1:11 PM [facility] MCV 99.7(H) 79.0 - 98.0 FL LAB HEMETOLOGY METHOD 09/15/2024 1:11 PM [facility] MCH 31.0 27.0 - 32.0 pcg LAB HEMETOLOGY METHOD 09/15/2024 1:11 PM [facility] MCHC 31.1(L) 32.0 - 37.0 g/dL LAB HEMETOLOGY METHOD 09/15/2024 1:11 PM [facility] RDW 15.1(H) 11.0 - 15.0 % LAB HEMETOLOGY METHOD 09/15/2024 1:11 PM [facility] Platelets 393 130 - 400 K/mcL LAB HEMETOLOGY METHOD 09/15/2024 1:11 PM [facility] MPV 10.7 7.0 - 11.0 FL LAB HEMETOLOGY METHOD 09/15/2024 1:11 PM [facility] NRBC 0.0 <1.0 % LAB HEMETOLOGY METHOD 09/15/2024 1:11 PM [facility] NRBC Absolute 0.00 <0.10 K/mcL LAB HEMETOLOGY METHOD 09/15/2024 1:11 PM [facility] Neutrophils Relative 75.9 % LAB HEMETOLOGY METHOD 09/15/2024 1:11 PM [facility] Lymphocytes Relative 12.1 % LAB HEMETOLOGY METHOD 09/15/2024 1:11 PM [facility] Monocytes Relative 7.8 % LAB HEMETOLOGY METHOD 09/15/2024 1:11 PM [facility] Eosinophils Relative 2.9 % LAB HEMETOLOGY METHOD 09/15/2024 1:11 PM [facility] Basophils Relative 0.5 % LAB HEMETOLOGY METHOD 09/15/2024 1:11 PM [facility] Immature Granulocytes Relative 0.8 % LAB HEMETOLOGY METHOD 09/15/2024 1:11 PM [facility] Neutrophils Absolute 13.08(H) 1.50 - 7.00 K/mcL LAB HEMETOLOGY METHOD 09/15/2024 1:11 PM [facility] Lymphocytes Absolute 2.08 1.00 - 5.00 K/mcL LAB HEMETOLOGY METHOD 09/15/2024 1:11 PM [facility] Monocytes Absolute 1.35(H) 0.20 - 1.00 K/mcL LAB HEMETOLOGY METHOD 09/15/2024 1:11 PM [facility] Eosinophils Absolute 0.50 0.00 - 0.50 K/mcL LAB HEMETOLOGY METHOD 09/15/2024 1:11 PM [facility] Basophils Absolute 0.08 0.00 - 0.20 K/mcL LAB HEMETOLOGY METHOD 09/15/2024 1:11 PM [facility] Immature Granulocytes Absolute 0.14(H) 0.00 - 0.03 K/mcL LAB HEMETOLOGY METHOD 09/15/2024 1:11 PM [facility] Blood Venous blood specimen / Unknown Venipuncture / Unknown 09/15/2024 6:00 AM EST 09/15/2024 10:50 AM EST us Danielito Lang MD LAB BLOOD ORDERABLES Final Result [facility] [address] [place] [address], * (ABNORMAL) Comprehensive metabolic panel (09/15/2024 6:00 AM EST) Sodium 134 133 - 145 mmol/L LAB CHEMISTRY METHOD 09/15/2024 5:29 PM [facility] Potassium 4.4 3.5 - 5.5 mmol/L LAB CHEMISTRY METHOD 09/15/2024 5:29 PM [facility] Chloride 103 96 - 110 mmol/L LAB CHEMISTRY METHOD 09/15/2024 5:29 PM [facility] CO2 26 21 - 32 mmol/L LAB CHEMISTRY METHOD 09/15/2024 5:29 PM [facility] Anion Gap 5 3 - 11 LAB CHEMISTRY METHOD 09/15/2024 5:29 PM [facility] Glucose 82 70 - 100 mg/dL LAB CHEMISTRY METHOD 09/15/2024 5:29 PM [facility] BUN 13 5 - 25 mg/dL LAB CHEMISTRY METHOD 09/15/2024 5:29 PM [facility] Creatinine 0.44(L) 0.50 - 1.10 mg/dL LAB CHEMISTRY METHOD 09/15/2024 5:29 PM [facility] eGFR 97 >=60 mL/min/1. 73m2 LAB CHEMISTRY METHOD 09/15/2024 5:29 PM [facility] Comment:Calculation based on the??Chronic Kidney Disease Epidemiology Collaboration (CKD-EPI) equation refit??without adjustment for race. BUN/Creatinine Ratio 29.5 LAB CHEMISTRY METHOD 09/15/2024 5:29 PM [facility] Calcium 8.3(L) 8.5 - 10.5 mg/dL LAB CHEMISTRY METHOD 09/15/2024 5:29 PM [facility] AST (SGOT) 58(H) 10 - 42 unit/L LAB CHEMISTRY METHOD 09/15/2024 5:29 PM [facility] ALT (SGPT) 70(H) 10 - 60 unit/L LAB CHEMISTRY METHOD 09/15/2024 5:29 PM [facility] Alkaline Phosphatase 116 42 - 121 unit/L LAB CHEMISTRY METHOD 09/15/2024 5:29 PM [facility] Total Protein 5.4(L) 6.0 - 8.0 g/dL LAB CHEMISTRY METHOD 09/15/2024 5:29 PM [facility] Albumin 2.3(L) 3.2 - 5.0 g/dL LAB CHEMISTRY METHOD 09/15/2024 5:29 PM [facility] Total Bilirubin 1.2 0.0 - 1.4 mg/dL LAB CHEMISTRY METHOD 09/15/2024 5:29 PM [facility] Blood Venous blood specimen / Unknown Venipuncture / Unknown 09/15/2024 6:00 AM EST 09/15/2024 10:50 AM EST us Danielito Lang MD LAB BLOOD ORDERABLES Final Result [facility] [address] [place] [address], documented in this encounter Visit Diagnoses Diagnosis Chronic kidney disease, stage 3 unspecified (CMS/HCC V24, CMS/HCC V28) Anemia, unspecified documented in this encounter Care Teams Daycare Manager Relationship Specialty Start Date End Date Danielito Lang MD [address] [place] [address] PCP - General Internal Medicine 09/15/24 documented as of this encounter
--- OUTSIDE RECORDS SUMMARY | 2024-11-09 17:45 | XMS_ITS | Encounter Summary ---
Author Organization [facility] Address [address] [place] [address] Care Team Providers Care Custom Harvester Name Role Phone Danielito Lang MD Primary Care Provider +1- [phone] Encounter Details Date Type Department Care Team (Late st Contact Info) Description 09/19/[address] [facility] - Main Lab [address] [facility] [place] [address] Danielito Lang MD [address] [place] [address] Anemia, unspecified; Chronic kidney disease, stage 2 [...] mmol/L LAB CHEMISTRY METHOD 09/20/2024 11:52 AM [facility] Potassium 5.2 3.5 - 5.5 mmol/L LAB CHEMISTRY METHOD 09/20/2024 11:52 AM [facility] Chloride 109 96 - 110 mmol/L LAB CHEMISTRY METHOD 09/20/2024 11:52 AM [facility] CO2 26 21 - 32 mmol/L LAB CHEMISTRY METHOD 09/20/2024 11:52 AM [facility] Anion Gap 6 3 - 11 LAB CHEMISTRY METHOD 09/20/2024 11:52 AM [facility] Glucose 76 70 - 100 mg/dL LAB CHEMISTRY METHOD 09/20/2024 11:52 AM [facility] BUN 18 5 - 25 mg/dL LAB CHEMISTRY METHOD 09/20/2024 11:52 AM [facility] Creatinine 0.52 0.50 - 1.10 mg/dL LAB CHEMISTRY METHOD 09/20/2024 11:52 AM [facility] eGFR 93 >=60 mL/min/1. 73m2 LAB CHEMISTRY METHOD 09/20/2024 11:52 AM [facility] Comment:Calculation based on the??Chronic Kidney Disease Epidemiology Collaboration (CKD-EPI) equation refit??without adjustment for race. BUN/Creatinine Ratio 34.6 LAB CHEMISTRY METHOD 09/20/2024 11:52 AM [facility] Calcium 8.3(L) 8.5 - 10.5 mg/dL LAB CHEMISTRY METHOD 09/20/2024 11:52 AM [facility] Blood Venous blood specimen / Unknown Venipuncture / Unknown 09/20/2024 5:02 AM EST 09/20/2024 10:59 AM EST us Danielito Lang MD LAB BLOOD ORDERABLES Final Result [facility] [address] [place] [address], * (ABNORMAL) Complete blood count (09/20/2024 5:02 AM EST) [facility] Signature WBC 12.9(H) 4.8 - 10.8 K/mcL LAB HEMETOLOGY METHOD 09/20/2024 11:41 AM [facility] RBC 3.00(L) 3.80 - 4.80 M/mcL LAB HEMETOLOGY METHOD 09/20/2024 11:41 AM [facility] Hemoglobin 9.1(L) 11.5 - 16.0 g/dL LAB HEMETOLOGY METHOD 09/20/2024 11:41 AM [facility] Hematocrit 30.1(L) 35.0 - 47.0 % LAB HEMETOLOGY METHOD 09/20/2024 11:41 AM [facility] MCV 101.7(H) 79.0 - 98.0 FL LAB HEMETOLOGY METHOD 09/20/2024 11:41 AM [facility] MCH 30.7 27.0 - 32.0 pcg LAB HEMETOLOGY METHOD 09/20/2024 11:41 AM [facility] MCHC 30.2(L) 32.0 - 37.0 g/dL LAB HEMETOLOGY METHOD 09/20/2024 11:41 AM [facility] RDW 15.1(H) 11.0 - 15.0 % LAB HEMETOLOGY METHOD 09/20/2024 11:41 AM [facility] Platelets 541(H) 130 - 400 K/mcL LAB HEMETOLOGY METHOD 09/20/2024 11:41 AM [facility] MPV 10.4 7.0 - 11.0 FL LAB HEMETOLOGY METHOD 09/20/2024 11:41 AM EST [facility] NRBC 0.0 <1.0 % LAB HEMETOLOGY METHOD 09/20/2024 11:41 AM EST [facility] NRBC Absolute 0.00 <0.10 K/mcL LAB HEMETOLOGY METHOD 09/20/2024 11:41 AM EST [facility] Blood Venous blood specimen / Unknown Venipuncture / Unknown 09/20/2024 5:02 AM EST 09/20/2024 10:59 AM EST us Danielito Lang MD LAB BLOOD ORDERABLES Final Result [facility] [address] [place] [address], documented in this encounter Visit Diagnoses Diagnosis Anemia, unspecified Chronic kidney disease, stage 2 (mild) documented in this encounter Care Teams Custom Harvester Relationship Specialty Start Date End Date Danielito Lang MD [address] [place] [address] PCP - General Internal Medicine 09/15/24 documented as of this encounter
--- OUTSIDE RECORDS SUMMARY | 2024-11-09 17:45 | XMS_ITS | Encounter Summary ---
Author Organization [facility] Address [address] [place] [address] Care Team Providers Care Parent Educator Name Role Phone Danielito Lang MD Primary Care Provider +1- [phone] Encounter Details Date Type Department Care Team (Late st Contact Info) Description 10/03/2024 Lab Requisition [facility] - Main Lab [address] [facility] [place] [address] Danielito Lang MD [address] [place] [address] Anemia, unspecified; Chronic kidney disease, stage 2 [...] mmol/L LAB CHEMISTRY METHOD 10/04/2024 11:47 AM [facility] Potassium 4.2 3.5 - 5.5 mmol/L LAB CHEMISTRY METHOD 10/04/2024 11:47 AM [facility] Chloride 111(H) 96 - 110 mmol/L LAB CHEMISTRY METHOD 10/04/2024 11:47 AM [facility] CO2 26 21 - 32 mmol/L LAB CHEMISTRY METHOD 10/04/2024 11:47 AM [facility] Anion Gap 7 3 - 11 LAB CHEMISTRY METHOD 10/04/2024 11:47 AM [facility] Glucose 87 70 - 100 mg/dL LAB CHEMISTRY METHOD 10/04/2024 11:47 AM [facility] BUN 7 5 - 25 mg/dL LAB CHEMISTRY METHOD 10/04/2024 11:47 AM [facility] Creatinine 0.48(L) 0.50 - 1.10 mg/dL LAB CHEMISTRY METHOD 10/04/2024 11:47 AM [facility] eGFR 95 >=60 mL/min/1. 73m2 LAB CHEMISTRY METHOD 10/04/2024 11:47 AM [facility] Comment:Calculation based on the??Chronic Kidney Disease Epidemiology Collaboration (CKD-EPI) equation refit??without adjustment for race. BUN/Creatinine Ratio 14.6 LAB CHEMISTRY METHOD 10/04/2024 11:47 AM [facility] Calcium 8.5 8.5 - 10.5 mg/dL LAB CHEMISTRY METHOD 10/04/2024 11:47 AM [facility] Blood Venous blood specimen / Unknown Venipuncture / Unknown 10/04/2024 7:40 AM EDT 10/04/2024 10:03 AM EDT us Danielito Lang MD LAB BLOOD ORDERABLES Final Result [facility] [address] [place] [address], * (ABNORMAL) Complete blood count (10/04/2024 7:40 AM EDT) [facility] Signature WBC 7.2 4.8 - 10.8 K/mcL LAB HEMETOLOGY METHOD 10/04/2024 10:36 AM EDT [facility] RBC 3.20(L) 3.80 - 4.80 M/mcL LAB HEMETOLOGY METHOD 10/04/2024 10:36 AM EDT [facility] Hemoglobin 10.1(L) 11.5 - 16.0 g/dL LAB HEMETOLOGY METHOD 10/04/2024 10:36 AM EDT [facility] Hematocrit 33.2(L) 35.0 - 47.0 % LAB HEMETOLOGY METHOD 10/04/2024 10:36 AM EDT [facility] MCV 103.4(H) 79.0 - 98.0 FL LAB HEMETOLOGY METHOD 10/04/2024 10:36 AM EDT [facility] MCH 31.5 27.0 - 32.0 pcg LAB HEMETOLOGY METHOD 10/04/2024 10:36 AM EDT [facility] MCHC 30.4(L) 32.0 - 37.0 g/dL LAB HEMETOLOGY METHOD 10/04/2024 10:36 AM EDT [facility] RDW 15.9(H) 11.0 - 15.0 % LAB HEMETOLOGY METHOD 10/04/2024 10:36 AM EDT [facility] Platelets 363 130 - 400 K/mcL LAB HEMETOLOGY METHOD 10/04/2024 10:36 AM EDT [facility] MPV 10.6 7.0 - 11.0 FL LAB HEMETOLOGY METHOD 10/04/2024 10:36 AM EDT [facility] NRBC 0.0 <1.0 % LAB HEMETOLOGY METHOD 10/04/2024 10:36 AM EDT [facility] NRBC Absolute 0.00 <0.10 K/mcL LAB HEMETOLOGY METHOD 10/04/2024 10:36 AM EDT [facility] Blood Venous blood specimen / Unknown Venipuncture / Unknown 10/04/2024 7:40 AM EDT 10/04/2024 10:03 AM EDT us Danielito Lang MD LAB BLOOD ORDERABLES Final Result [facility] [address] [place] [address], documented in this encounter Visit Diagnoses Diagnosis Anemia, unspecified Chronic kidney disease, stage 2 (mild) documented in this encounter Care Teams Parent Educator Relationship Specialty Start Date End Date Danielito Lang MD [address] [place] [address] PCP - General Internal Medicine 09/15/24 documented as of this encounter
--- OUTSIDE RECORDS SUMMARY | 2024-11-09 17:45 | XMS_ITS | Clinical Summary ---
Author Organization [address] Address [address] [place] [address] Phone Care Team Providers Care International Logistics Coordinator Name Role Phone Danielito Lang MD Primary Care Provider +1- [phone] Encounters Date Type Department Care Team Description 10/03/2024 Lab Requisition [facility] Lab [address] [place] [id number] Danielito Lang MD Anemia, unspecified; Chronic kidney disease, stage 2 (mild) 09/26/2024 Lab Requisition [facility] Lab [address] [place] [address] Danielito Lang MD Anemia, unspecified; Chronic kidney disease, stage 2 (mild); Elevated white blood cell count, unspecified 09/19/2024 Lab Requisition [facility] Lab [address] [place] [address] Danielito Lang MD Anemia, unspecified; Chronic kidney disease, stage 2 (mild) 09/14/2024 Lab Requisition [facility] Lab [address] [place] [address] Danielito Lang MD Chronic kidney disease, stage 3 unspecified (CMS/HCC V24, CMS/HCC V28); Anemia, unspecified from Last 3 Months Surgical History Surgery Date Site/Laterality Comments TOTAL KNEE ARTHROPLASTY Bilateral PROCEDURE: HISTORICAL TOTAL KNEE REPLACE BACK SURGERY october 2013 PROCEDURE: HISTORICAL BACK SURGERY OTHER SURGICAL HISTORY PROCEDURE: PELVIC CONTROL PELVIC SLING CHOLECYSTECTOMY PROCEDURE: HISTORICAL CHOLECYSTECTOMY OTHER SURGICAL HISTORY PROCEDURE: ND STAB PHLEBT VARICOSE VEINS 1 XTR 10-20 STAB INCS OTHER SURGICAL HISTORY PROCEDURE: ND EXCISION INTERDIGITAL AKBAR NEUROMA SINGLE EACH CARPAL TUNNEL RELEASE PROCEDURE: ND NEUROPLASTY &/TRANSPOS MEDIAN NRV CARPAL TUNNE HIP [...] stress and urge uri nary incontinence; COMMENT: [facility] urology DJD (degenerative joint dise ase) [...] 2017 COVID-19 Vaccine ( - season) 2024 Cholesterol Screening (Lipid Panel) 09/20/2024 Depression Screening 09/20/2024 Falls Risk Assessment 09/20/2024 Medicare Annual Wellness Visit 09/20/2024 Osteoporosis Screening (Bone Density Screening) 09/20/2024 Social Influencers of Health Screening 09/20/2024 Influenza Vaccine (Season Ended) 2025 05/26/2018, 04/20/2017, 05/18/2016, Additional history exists Hypertension/CHF/CAD Annual BMP Blood Test 10/04/2025 10/04/2024, [...] of3 resultswithin the time period is included. [facility] Signature WBC 7.2 4.8 - 10.8 K/mcL LAB HEMETOLOGY METHOD 10/04/2024 10:36 AM EDT [facility] RBC 3.20(L) 3.80 - 4.80 M/[facility] LAB HEMETOLOGY METHOD 10/04/2024 10:36 AM UNIVERSITY [...] Lang MD LAB BLOOD ORDERABLES Final Result [facility] LAB [address] [place] [address], * (ABNORMAL) Basic metabolic panel (10/04/2024 7:40 [...] LAB CHEMISTRY METHOD 10/04/2024 11:47 AM EDT [facility] Blood Venous blood specimen / Unknown Venipuncture / Unknown 10/04/2024 7:40 AM EDT 10/04/2024 10:03 AM EDT Danielito Lang MD LAB BLOOD ORDERABLES Final Result [facility] LAB [address] [place] [address], [place] [phone] * (ABNORMAL) Comprehensive metabolic panel (09/27/2024 8:43 [...] 73m2 LAB CHEMISTRY METHOD 09/27/2024 1:18 PM T [facility] LAB Comment:Calculation based on the??Chronic Kidney Disease Epidemiology Collaboration (CKD-EPI) equation refit??without adjustment for race. BUN/Creatinine Ratio 20.8 LAB CHEMISTRY METHOD 09/27/2024 1:18 PM T [facility] Calcium 8.3(L) 8.5 - 10.5 mg/dL LAB CHEMISTRY METHOD 09/27/2024 1:18 PM [facility] AST (SGOT) 25 [...] Lang MD LAB BLOOD ORDERABLES Final Result [facility] LAB [address] [place] [address], * (ABNORMAL) CBC auto differential (09/15/2024 6:00 AM EST) [facility] WBC 17.2(H) 4.8 - 10.8 K/mcL LAB HEMETOLOGY METHOD 09/15/2024 1:11 PM [facility] LAB RBC 3.10(L) 3.80 - 4.80 M/mcL LAB HEMETOLOGY METHOD 09/15/2024 1:11 PM [facility] LAB Hemoglobin 9.6(L) 11.5 - 16.0 g/dL LAB HEMETOLOGY METHOD 09/15/2024 1:11 PM [facility] LAB Hematocrit 30.9(L) 35.0 - 47.0 % LAB HEMETOLOGY METHOD 09/15/2024 1:11 PM [facility] LAB MCV 99.7(H) 79.0 - 98.0 FL LAB HEMETOLOGY METHOD 09/15/2024 1:11 PM [facility] LAB MCH 31.0 27.0 - 32.0 pcg LAB HEMETOLOGY METHOD 09/15/2024 1:11 PM [facility] LAB MCHC 31.1(L) 32.0 - 37.0 g/dL LAB HEMETOLOGY METHOD 09/15/2024 1:11 PM [facility] LAB RDW 15.1(H) 11.0 - 15.0 % LAB HEMETOLOGY METHOD 09/15/2024 1:11 PM [facility] LAB Platelets 393 130 - 400 K/mcL LAB HEMETOLOGY METHOD 09/15/2024 1:11 PM [facility] LAB MPV 10.7 7.0 - 11.0 FL LAB HEMETOLOGY METHOD 09/15/2024 1:11 PM [facility] LAB NRBC 0.0 <1.0 % LAB HEMETOLOGY METHOD 09/15/2024 1:11 PM [facility] LAB NRBC Absolute 0.00 <0.10 K/[facility] LAB HEMETOLOGY METHOD 09/15/2024 1:11 PM [facility] LAB Neutrophils Relative 75.9 % LAB HEMETOLOGY METHOD 09/15/2024 1:11 PM [facility] Lymphocytes Relative 12.1 % LAB HEMETOLOGY METHOD 09/15/2024 1:11 PM [facility] Monocytes Relative 7.8 % LAB HEMETOLOGY METHOD 09/15/2024 1:11 PM [facility] LAB Eosinophils Relative 2.9 % LAB HEMETOLOGY METHOD 09/15/2024 1:11 PM [facility] Basophils Relative 0.5 % LAB HEMETOLOGY METHOD 09/15/2024 1:11 PM [facility] LAB Immature Granulocytes Relative 0.8 % LAB HEMETOLOGY METHOD 09/15/2024 1:11 PM [facility] LAB Neutrophils Absolute 13.08(H) 1.50 - 7.00 K/mcL LAB HEMETOLOGY METHOD 09/15/2024 1:11 PM [facility] Lymphocytes Absolute 2.08 1.00 - 5.00 K/mcL LAB HEMETOLOGY METHOD 09/15/2024 1:11 PM [facility] Monocytes Absolute 1.35(H) 0.20 - 1.00 K/mcL LAB HEMETOLOGY METHOD 09/15/2024 1:11 PM [facility] LAB Eosinophils Absolute 0.50 0.00 - 0.50 K/mcL LAB HEMETOLOGY METHOD 09/15/2024 1:11 PM [facility] Basophils Absolute 0.08 0.00 - 0.20 K/mcL LAB HEMETOLOGY METHOD 09/15/2024 1:11 PM [facility] LAB Immature Granulocytes Absolute 0.14(H) 0.00 - 0.03 K/mcL LAB HEMETOLOGY METHOD 09/15/2024 1:11 PM [facility] Blood Venous blood specimen / Unknown Venipuncture / Unknown 09/15/2024 6:00 AM EST 09/15/2024 10:50 AM EST Danielito Lang MD LAB BLOOD ORDERABLES Final Result [facility] ([facility]) [facility] [address] [place] [address], from Last 3 Months Insurance [employer] [facility] Advance Directives Documents on File Type Date Recorded Patient Regulator Tester Expl anation Health Care Decision (hx) 09/28/2019 AD ENCARNACION DIRECTIVE Health Care Decision (hx) 09/28/2019 AD ENCARNACION DIRECTIVE Care Teams [employer] Log[employer] Coordinator Relationship Specialty Start Date End Date Danielito Lang MD [address] [place] [address] PCP - General Internal Medicine 09/15/24
--- OUTSIDE RECORDS SUMMARY | 2024-11-09 17:45 | XMS_ITS | Encounter Summary ---
Author Organization [facility] Address [address] [place] [address] Care Team Providers Care [employer] Lab Manager Name Role Phone Danielito Lang MD Primary Care Provider +1- [phone] Encounter Details Date Type Department Care Team (Late st Contact Info) Description 09/26/2024 Lab Requisition [facility] Lab [address] [facility] [place] [address] Danielito Lang MD [address] [place] [id number] Anemia, unspecified; Chronic kidney disease, stage 2 [...] mmol/L LAB CHEMISTRY METHOD 09/27/2024 1:18 PM [facility] Potassium 4.3 3.5 - 5.5 mmol/L LAB CHEMISTRY METHOD 09/27/2024 1:18 PM [facility] Chloride 111(H) 96 - 110 mmol/L LAB CHEMISTRY METHOD 09/27/2024 1:18 PM [facility] CO2 24 21 - 32 mmol/L LAB CHEMISTRY METHOD 09/27/2024 1:18 PM [facility] Anion Gap 9 3 - 11 LAB CHEMISTRY METHOD 09/27/2024 1:18 PM [facility] Glucose 81 70 - 100 mg/dL LAB CHEMISTRY METHOD 09/27/2024 1:18 PM [facility] BUN 11 5 - 25 mg/dL LAB CHEMISTRY METHOD 09/27/2024 1:18 PM [facility] Creatinine 0.53 0.50 - 1.10 mg/dL LAB CHEMISTRY METHOD 09/27/2024 1:18 PM [facility] LAB eGFR 92 >=60 mL/min/1. 73m2 LAB CHEMISTRY METHOD 09/27/2024 1:18 PM [facility] LAB Comment:Calculation based on the??Chronic Kidney Disease Epidemiology Collaboration (CKD-EPI) equation refit??without adjustment for race. BUN/Creatinine Ratio 20.8 LAB CHEMISTRY METHOD 09/27/2024 1:18 PM [facility] Calcium 8.3(L) 8.5 - 10.5 mg/dL LAB CHEMISTRY METHOD 09/27/2024 1:18 PM [facility] AST (SGOT) 25 10 - 42 unit/L LAB CHEMISTRY METHOD 09/27/2024 1:18 PM [facility] ALT (SGPT) 30 10 - 60 unit/L LAB CHEMISTRY METHOD 09/27/2024 1:18 PM EDT [facility] LAB Alkaline Phosphatase 203(H) 42 - 121 unit/L LAB CHEMISTRY METHOD 09/27/2024 1:18 PM EDT [facility] Total Protein 5.5(L) 6.0 - 8.0 g/dL LAB CHEMISTRY METHOD 09/27/2024 1:18 PM EDT [facility] Albumin 2.6(L) 3.2 - 5.0 g/dL LAB CHEMISTRY METHOD 09/27/2024 1:18 PM EDT [facility] Total Bilirubin 0.7 0.0 - 1.4 mg/dL LAB CHEMISTRY METHOD 09/27/2024 1:18 PM EDT [facility] Blood Venous blood specimen / Unknown Venipuncture / Unknown 09/27/2024 8:43 AM EDT 09/27/2024 10:31 AM EDT us Danielito Lang MD LAB BLOOD ORDERABLES Final Result [facility] LAB [address] [place] [address], * (ABNORMAL) Complete blood count (09/27/2024 8:43 AM EDT) WBC 8.1 4.8 - 10.8 K/mcL LAB HEMETOLOGY METHOD 09/27/2024 12:06 PM EDT [facility] RBC 3.10(L) 3.80 - 4.80 M/mcL LAB HEMETOLOGY METHOD 09/27/2024 12:06 PM EDT [facility] Hemoglobin 9.6(L) 11.5 - 16.0 g/dL LAB HEMETOLOGY METHOD 09/27/2024 12:06 PM EDT [facility] Hematocrit 31.7(L) 35.0 - 47.0 % LAB HEMETOLOGY METHOD 09/27/2024 12:06 PM EDT [facility] MCV 101.9(H) 79.0 - 98.0 FL LAB HEMETOLOGY METHOD 09/27/2024 12:06 PM EDT [facility] LAB MCH 30.9 27.0 - 32.0 pcg LAB HEMETOLOGY METHOD 09/27/2024 12:06 PM EDT [facility] MCHC 30.3(L) 32.0 - 37.0 g/dL LAB HEMETOLOGY METHOD 09/27/2024 12:06 PM EDT [facility] RDW 15.9(H) 11.0 - 15.0 % LAB [facility]ETOLOGY [facility] 548(H) 130 - 400 K/mcL LAB HEMETOLOGY METHOD 09/27/2024 12:06 PM EDT [facility] LAB MPV 9.8 7.0 - 11.0 FL LAB HEMETOLOGY METHOD 09/27/2024 12:06 PM EDT [facility] LAB NRBC 0.0 <1.0 % LAB HEMETOLOGY METHOD 09/27/2024 12:06 PM [facility] NRBC Absolute 0.00 <0.10 K/mcL LAB HEMETOLOGY METHOD [facility]24 [facility] Blood Venous blood specimen / Unknown Venipuncture / Unknown 09/27/2024 8:43 AM EDT 09/27/2024 10:31 AM EDT us Danielito Lang MD LAB BLOOD ORDERABLES Final Result [facility] [address] [place] [address], documented in this encounter Visit Diagnoses Diagnosis Anemia, unspecified Chronic kidney disease, stage 2 (mild) Elevated white blood cell count, unspecified documented in this encounter Care Teams Experimental Machining Lab Manager Relationship Specialty Start Date End Date Danielito Lang MD [address] [place] [address] PCP - General Internal Medicine 09/15/24 documented as of this encounter
== END 2024-11-09 14:54 | disposition home or self-care (01) ==
LOC: HO.HMGCLDS 14:53
PROVIDERS: PCP Internal Medicine; Visit Provider Internal Medicine
DX: I48.91 Unspecified atrial fibrillation (principal); I10 Essential (primary) hypertension
CPT/HCPCS: 36415; 80053; 83880

== ENCOUNTER 2025-02-27 08:26 | Outpatient (REF) | payer MEDICARE, SELFPAY ==
--- OUTSIDE RECORDS SUMMARY | 2025-02-27 08:44 | XMS_ITS ---
Author Name [facility] Organization Unknown Care Team Organization Name Specialty Phone Email Start Date End Da te [facility] Termed, PROVIDER Primary Care 05/27/202202/17
--- OUTSIDE RECORDS SUMMARY | 2025-02-27 08:44 | XMS_ITS | Clinical Summary ---
Author Organization [address] Address [address] [place] [address] Phone Care Team Providers Care Door Liner Name Role Phone Danielito Lang MD Primary Care Provider +1- [phone] Surgical History Surgery Date Site/Laterality Comments TOTAL KNEE ARTHROPLASTY Bilateral PROCEDURE: HISTORICAL TOTAL KNEE REPLACE BACK SURGERY october 2013 PROCEDURE: HISTORICAL BACK SURGERY OTHER SURGICAL HISTORY PROCEDURE: PELVIC CONTROL PELVIC SLING CHOLECYSTECTOMY PROCEDURE: HISTORICAL CHOLECYSTECTOMY OTHER SURGICAL HISTORY PROCEDURE: RI STAB PHLEBT VARICOSE VEINS 1 XTR 10-20 STAB INCS OTHER SURGICAL HISTORY PROCEDURE: 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 RELEASE PROCEDURE: RI NEUROPLASTY &/TRANSPOS MEDIAN NRV CARPAL TUNNE HIP [...] and urge uri nary incontinence; COMMENT: [facility] urology DJD (degenerative joint dise ase) of [...] COVID-19 Vaccine ( - 2023- season) 2024 Depression Screening 07/20/2024 Cholesterol Screening (Lipid Panel) 09/20/2024 Falls Risk Assessment 09/20/2024 Medicare Annual Wellness Visit 09/20/2024 Osteoporosis Screening (Bone Density Screening) 09/20/2024 Social Influencers of Health Screening 09/20/2024 Influenza Vaccine (#1) 2025 8, 04/20/2017, 05/18/2016, Additional history exists Hypertension/CHF/CAD Annual [...] unspecified Chronic kidney disease, stage 2 (mild) from Last 3 Months or Most Recently Relevant to Health Maintenance Results * (ABNORMAL) Basic metabolic panel (10/04/2024 [...] LAB CHEMISTRY METHOD 10/04/2024 11:47 AM EDT [facility] BUN 7 5 - 25 mg/dL LAB CHEMISTRY METHOD 10/04/2024 11:47 AM EDT [facility] Creatinine 0.48(L) 0.50 - 1.10 mg/dL LAB CHEMISTRY METHOD 10/04/2024 11:47 AM EDT [facility] LAB eGFR 95 >=60 mL/min/1. 73m2 LAB CHEMISTRY METHOD 10/04/2024 11:47 AM EDT [facility] Comment:Calculation based on the Chronic Kidney Disease Epidemiology Collaboration (CKD-EPI) equation refit without adjustment for race. BUN/Creatinine Ratio 14.6 LAB CHEMISTRY METHOD 10/04/2024 11:47 AM EDT [facility] Calcium 8.5 8.5 - 10.5 mg/dL LAB CHEMISTRY METHOD 10/04/2024 11:47 AM T [facility] Blood Venous blood specimen / Unknown Venipuncture / Unknown 10/04/2024 7:40 AM EDT 10/04/2024 10:03 AM EDT Danielito Lang MD LAB BLOOD ORDERABLES Final Result [facility] [address] [place] [address], from Last 3 Months or Most Recently Relevant to Health Maintenance Insurance [employer] ADVANTAGE [facility] Advance Directives Documents on File Type Date Recorded Patient Marketing Production Coordinator Expl anation Health Care Decision (hx) 09/28/2019 AD ENCARNACION DIRECTIVE Health Care Decision (hx) 09/28/2019 AD ENCARNACION DIRECTIVE Care Teams Door Liner Relationship Specialty Start Date End Date Danielito Lang MD [address] [place] [address] PCP - General Internal Medicine 09/15/24
--- OUTSIDE RECORDS SUMMARY | 2025-02-27 08:44 | XMS_ITS | Patient Health Record ---
Author Organization [facility] Address [address] [facility] [address] [place] [address] Care Team Providers Care Student Loan Counselor Name Role Phone Danielito Lang MD Primary Care Provider Unava Alejandra Flores Unavailable [phone] Allergies Allergen (clinical drug ingredient) Drug/Non Drug Allergy documented on EMR Reaction Allergy Type Onset Date Status Analgesic Unknown Drug Allergy Active ethacrynate Edecrin Unknown Drug Allergy Activ e Adhesive Unknown Allergy Active ciprofloxacin Ciprofloxacin Unknown Drug Allergy Active imipramine Imipramine Unknown Drug Allergy Activ e oxybutynin Oxybutynin Unknown Drug Allergy Activ e Substance with sulfonamide structure and antibacterial mechanism of action (substance) Sulfa Antibiotics Unknown Drug Allergy Active Reason For Referral No Information Medications Medication SIG (Take, Route, Frequency, Duration) Notes Start Date End Date Status Vitamin B Complex - 1 tablet Orally once a day 09/14/2024 Active Cholecalciferol 50 MCG (1999 UT) 1 tablet Orally Once a day every Thu, Hiwot 09/15/2024 Not-Taking traMADol HCl 50 MG 1 tablet Orally every 6 hrs As needed 09/13/2024 Active Valsartan 320 MG 1 tablet Orally Once a day 09/14/2024 Active Bisacodyl 10 MG 1 suppository Rectal Once a day As needed 09/13/2024 Active Senna 8.6 MG 2 tablets Orally Onc e a day 09/14/2024 Active Cetirizine HCl 10 MG 1 tablet Orally Onc e a day 09/14/2024 Active Toprol XL 50 MG 1 tablet Orally Once a day 09/14/2024 Active Ascorbic Acid 500 MG 1 tablet Orally Onc e a day 09/14/2024 Active Magnesium Oxide 250 MG 1 tablet Orally O nce a day 09/14/2024 Active Atorvastatin Calcium 20 MG 1 tablet Oral ly Once a day 09/14/2024 Active Polyethylene Glycol 3350 17 GM/SCOOP 1 scoop mixed with 8 ounces of fluid Orally Once a day 09/14/2024 Active Folic Acid 0.8 MG 1/2 capsule Orally Once a day 09/14/2024 Active amLODIPine Besylate 2.5 MG 1 tablet Oral ly Once a day 09/14/2024 Active Magnesium Hydroxide 400 MG/5ML 30 mL Orally once a day As needed 09/13/2024 Active Estradiol 0.1 MG/GM 1 gm Vaginal As needed 09/13/2024 Active Enema 7-19 GM/118ML as directed Rectal As needed 09/13/2024 Active CoQ10 100 MG 1 capsule Orally onc e a day 09/14/2024 Active Eliquis 5 MG 1 tablet Orally twic e a day 09/13/2024 Active Problems Problem Type SNOMED Code ICD Code Onset Dates Problem Status W/U Status Risk Notes Problem Vitamin D deficiency (68733648) Vitamin D deficiency, unspecified (E55.9) Active confirmed Problem Obesity (366178518) Obesity, unspecified (E66.9) Active confirmed Problem Hyperlipidemia (15208214) Hyperlipidemia, unspecified (E78.5) Active confirmed Problem Essential hypertension (81669210) Essential (primary) hypertension (I10) Active confirmed Problem Atrial fibrillation (62051637) Unspecified atrial fibrillation (I48.91) Active confirmed Problem Allergic rhinitis (93359377) Allergic rhinitis, unspecified (J30.9) Active confirmed Problem Gastro-esophageal reflux disease without esophagitis (662983260) Gastro-esophageal reflux disease without esophagitis (K21.9) Active confirmed Problem Osteoarthritis (833621229) Unspecified osteoarthritis, unspecified site (M19.90) Active confirmed Problem Intervertebral disc disorder (29351143) Unspecified thoracic, 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) Active confirmed Problem Chronic kidney disease stage 2 (021836669) Chronic kidney disease, stage 2 (mild) (N18.2) Active confirmed Problem Urinary incontinence (671523235) Unspecified urinary incontinence (R32) Active confirmed Problem Artificial knee joint present (229640944038) Presence of unspecified artificial knee joint (Z96.659) Active confirmed Problem Pressure injury of deep tissue of sacral region of back (disorder) (2357297815871824 08) Pressure injury of deep tissue of sacral region (L89.156) Active confirmed Vital Signs Weight 242.4 lbs 09/14/2024 Weight reflecte d from 09/14/24 on [facility] Encounters Encounter Location Date Provider Diagnosis [address] [place] [address] 09/14/2024 Alejandra Monzon Pressure injury of deep tissue of sacral region L89.156 ; Obesity, unspecified E66.9 ; Chronic kidney disease, stage 2 (mild) N18.2 and Unspecified urinary incontinence R32 Assessments Encounter Date Diagnosis (ICD Code) Assessment Notes Treatment Notes Treatment Clinical Notes Section Notes 09/14/2024 Obesity, unspecified (ICD-10 - E66.9) 09/14/2024 Pressure injury of deep tissue of sacral region (ICD-10 - L89.156) On exam, alert & cooperative with care. We rolled her and examined her coccyx and buttocks which are nicely CDI. Given she is obese, incontinent and fairly immobile s/p R hip ORIF, we applied triad paste for protection. I recommended nursing continue applying triad paste QS for protection. Turn, reposition & offload Q2 hours & PRN to aid in wound healing. Encourage appropriate dietary supplementation to aid in skin integrity. She does not require a follow up at this time but I will follow up with new or reopened areas and nursing will reach out in the interim w any questions or concerns. Patient and nursing agree w plan of care. I Alejandra RUDOLPH, AGPCNP-BC examined, evaluated and treated the patient. Dr. Columba Rudolph was available for any question or concerns that I may have had. 09/14/2024 Chronic kidney disease, stage 2 (mild) (ICD-10 - N18.2) 09/14/2024 Unspecified urinary incontinence (ICD-10 - R32) 09/14/2024 Other I, Enzo Rudolph MD confirm that Alejandra RUDOLPH, AGPCNP-BC, understands and adheres to the guidelines of the established clinical protocols in the office. I confirm the above care provided was rendered under my general supervision as initially planned and subsequently discussed and supervised by me. Plan Of Treatment No Information Insurance Providers Payer Name Payer Address Payer Phone Subscriber Number Group Number Insured Name Patient Relationship to Insured Coverage Start Date Coverage End Date [facility] [address] [place], [place] [id number] [phone] [id number] Mary Cutler Self - patient is the insured 1 Medical (General) History Medical History History ICD Code Allergic rhinitis, unspecified J30.9 Chronic kidney disease, stage 2 (mild) N 18.2 Displaced spiral fracture of shaft of right femur, subsequent encounter for closed fracture with routine healing S72.341D Encounter for other orthopedic aftercare Z47.89 Essential (primary) hypertension I10 Gastro-esophageal reflux disease without esophagitis K21.9 Hyperlipidemia, unspecified E78.5 Low back pain, unspecified M54.50 Obesity, unspecified E66.9 Personal history of other infectious and parasitic diseases Z86.19 Presence of unspecified artificial knee joint Z96.659 Unspecified atrial fibrillation I48.91 Unspecified contact dermatitis, unspecif ied cause L25.9 Unspecified fall, subsequent encounter W 19.XXXD Unspecified osteoarthritis, unspecified site M19.90 Unspecified thoracic, thorac olumbar and lumbosacral intervertebral disc disorder M51.9 Unspecified urinary incontinence R32 Vitamin D deficiency, unspecified E55.9
[2025-02-27 10:10] LABS: Hematocrit 40.9 % (37.0-47.0); Hemoglobin 13.2 g/dl (12.0-16.0); Imm Gran Abs Auto 0.02 X10*3/uL (0.00-0.03); Imm Gran Pct Auto 0.3 % (0.0-0.4); Lymphocytes Absolute Auto 2.0 X10*3/uL (1.2-4.9); MANUAL DIFF FLAG NO; Mean Corpuscular HGB Conc 32.3 g/dl (31.0-35.0); Mean Corpuscular Hemoglobin 30.8 pg (27.0-33.0); Mean Corpuscular Volume 95.3 fL (80.0-98.0); NRBC Abs Auto 0.000 X10*3/uL (0.0-0.012); NRBC Pct Auto 0.0 /100WBC (0.0-0.2); Platelet Count 314 X10*3/uL (160-400); Red Blood Count 4.29 X10*6/uL (4.20-5.50); White Blood Count 7.4 X10*3/uL (4.8-10.8)
[2025-02-27 10:20] LABS: Hemoglobin A1C 138.2040 umol/L; Total Hemoglobin (HGBA1C) 3532.0815 umol/L
[2025-02-27 10:35] LABS: Alanine Aminotransferase 19 U/L (0-31); Albumin Level 4.0 g/dL (3.5-5.0); Alkaline Phosphatase 124 U/L (39-117); Anion Gap 12 (12-20); Aspartate Amino Transferase 37 U/L (5-31); Blood Urea Nitrogen 14 mg/dL (9-16); Calcium 9.1 mg/dL (8.4-10.2); Carbon Dioxide 28 mmol/L (22-29); Chloride 108 mmol/L (96-108); Cholesterol 132 mg/dL (<200); Estimated Glomerular Filt Rate > 60; HDL Cholesterol 43 mg/dL (>40); Potassium 3.9 mmol/L (3.3-5.1); Sodium 144 mmol/L (135-145); Total Protein 7.0 g/dL (6.5-8.0); Triglycerides 142 mg/dL (<150)
== END 2025-02-27 08:27 | disposition home or self-care (01) ==
LOC: HO.HMGCLDS 08:26
PROVIDERS: PCP Internal Medicine; Visit Provider Internal Medicine
DX: I10 Essential (primary) hypertension (principal); I48.91 Unspecified atrial fibrillation; R73.9 Hyperglycemia, unspecified; E78.5 Hyperlipidemia, unspecified; E55.9 Vitamin D deficiency, unspecified; R60.9 Edema, unspecified
CPT/HCPCS: 36415; 80053; 80061; 82306; 83036; 84443; 85025

== ENCOUNTER 2025-03-14 11:10 | Outpatient (AMB) | payer MEDICARE, SELFPAY ==
--- NOTE | 2025-03-14 11:32 | A.OFFPC_ITS ---
Vital Signs 03/14/25 11:33 Height 5 ft 4 in Weight 222 lb BMI 38.1 BP 102/70 Blood Pressure Location Lt brachial Position Sitting Respiration 16 Pulse 70 Pulse Source Pulse Oximeter Temp 98.0 F Temp Source Oral Pulse Oximetry (%) 95 Oxygen Delivery Method Room Air Intake Visit Reasons: 6 months follow up Intake Note: Pt is here today for her 6mo. f/u Allergies ciprofloxacin (From Cipro) Allergy (Verified 03/14/25 11:37) vomiting oxybutynin Allergy (Verified 03/14/25 11:37) rash Sulfa (Sulfonamide Antibiotics) Allergy (Verified 03/14/25 11:37) rash gabapentin Adverse Reaction (Intermediate, Verified 03/14/25 11:37) Dizziness spironolactone Adverse Reaction (Intermediate, Verified 03/14/25 11:37) dry mouth Medication List - Last Reconciled 03/14/25 by Anastasia Angel MD amlodipine 2.5 mg PO DAILY apixaban (Eliquis) 5 mg PO BID atorvastatin 20 mg PO DAILY [coq10 100 mg daily] flecainide 50 mg PO BID folic acid 0.4 mg PO DAILY furosemide 20 mg PO DAILY metoprolol succinate ER 50 mg PO DAILY tramadol 50 mg PO Q6H PRN triamcinolone acetonide 0.025% 1 appl topical BID valsartan 320 mg PO DAILY vitamin B complex 1 tab PO DAILY Tobacco use date assessed: 03/14/25 Fall risk assessment: 1 Fall in past year Last assessed Fall Risk: 03/14/25 Dental Screening Dental Screen Date: 03/14/25 Did you have a dental visit in the last 12 months?: Yes Did you have a dental problem in the last 6 months where you did not have access to dental care?: No Was dental information given to patient?: Patient has dentist HPI 6 months follow up HPI Details Patient presents for the follow-up on hypertension paroxysmal AFib hyperlipidemia. She reports feeling lightheaded when standing up denies chest pain shortness of breath palpitations. [facility] Medical History (Updated 03/14/25 @ 12:20 by Anastasia Angel MD) Hyperglycemia Atrial fibrillation with RVR Leg weakness, bilateral Annual physical exam Spinal stenosis of lumbar region Burning chest pain Edema Obesity Hyperlipidemia Osteoarthritis HTN (hypertension) Broken wrist Surgical History H/O colonoscopy History of carpal tunnel surgery History of right knee joint replacement History of total left knee replacement H/O: hysterectomy S/P cholecystectomy Family History Father Hypertension Mother Hypertension A-fib Sister Substance use disorder Social History Household Members Other:: lives alone, 2 daughters Housing: House Patient Tobacco Use Status: Former Tobacco user e-Cigarette/Vaping Use: Never Used service: No Current occupational status: retired Cognitive needs: No Hearing needs: No Vision needs: Yes Questionnaire Thrive Questionnaire Date Thrive assessed: 10/12/24 Within the past 12 months, did you worry whether your food would run out before you got money to buy more?: I choose not to answer this question Do you have trouble paying for medicines?: I choose not to answer this question Do you have trouble getting transportation to medical appointments?: I choose not to answer this question Do you have trouble paying your heating and electricity bill?: No Do you have trouble taking care of your child, family member or friend?: No Do you have trouble with day-to-day activities such as bathing, preparing meals, shopping, managing finances, etc.?: No Are you currently unemployed and looking for a job?: No Are you interested in more education?: No Please select the resources that you would like help with: None Currently or been in a relationship where the following occur: I choose not to answer THRIVE Score: 0 AUDIT C Alcohol Use Questionnaire (AUDIT-C) 1. How often do you have a drink containing alcohol?: Never Total Score: 0 DAVEY-7 AMB Questionnaire DAVEY-7 Date DAVEY - 7 assessed: 08/25/24 Feeling nervous, anxious, or on edge: 0 = Not at all Not being able to stop or control worryin = Not at all Worrying too much about different things: 0 = Not at all Trouble relaxin = Not at all Being so restless that it is hard to sit still: 0 = Not at all Becoming easily annoyed or irritable: 0 = Not at all Feeling afraid as if something awful might happen: 0 = Not at all Total DAVEY-7 score (0-4 normal; 5-9 mild; 10-14 moderate; 15-21 severe): 0 Source: Developed by Drs. Federico Wilburn, Mary Tillman, Claude Sullivan and colleagues, with an educational ezra from [email or web address]. Review of Systems Const All systems reviewed & are unremarkable except as noted in HPI and below Eyes Reports no additional complaints ENT Reports no additional complaints Card Reports no additional complaints Resp Reports no additional complaints GI Reports no additional complaints Reports no additional complaints Physical exam (Primary Care) Vital Signs: Last Vital Signs Temp 98.0 F 03/14/25 11:33 Pulse 70 03/14/25 11:33 Resp 16 03/14/25 11:33 BP 102/70 03/14/25 11:33 Pulse Ox 95 03/14/25 11:33 Oxygen Delivery Method Room Air 03/14/25 11:33 BMI result Body Mass Index 38.1 Tobacco/Smoking Status: Tobacco use Status Tobacco use date assessed 03/14/25 03/14/25 11:38 Patient Tobacco Use Status Former Tobacco user 03/14/25 11:38 e-Cigarette/Vaping Use Never Used 03/14/25 11:38 Thrive Assessment: Date of Thrive Assessment Date Thrive assessed 10/12/24 03/14/25 11:38 Currently or been in a relationship where the following occur: I choose not to answer Const General: no acute distress HENMT Head: Yes normal to inspection Mouth: Normal oral and palatal mucosa present Eyes General: appearance normal, both eyes and all related structures Resp Effort & Inspection: normal respiratory effort Auscultation: clear to auscultation bilaterally Cardio Rhythm: regular rhythm Heart sounds: S1 normal heart sound present and S2 normal heart sound present GI Inspection: Yes normal to inspection Palpation (GI): Soft to palpation Percussion: Yes normal to percussion Auscultation: normal bowel sounds Extrem Other: 2+ pitting edema bilaterally Coding Level of Care Code Est Pt Level 4 (01484) Diagnoses Atrial fibrillation with RVR I48.91 Hyperlipidemia E78.5 HTN (hypertension) I10 Hyperglycemia R73.9 Obesity E66.9 Assessment & Plan Assessment & Plan (1) Atrial fibrillation with RVR: Comment: Status post cardioversion 09/2024 at [facility], on flecainide metoprolol and Eliquis, follow-up with [facility] Cardiology, Echo 08/2024 EF 65-70%, no segmental wall motion abnormalities Code(s): I48.91 - Unspecified atrial fibrillation Category: Medical Plan: Rhythm controlled on flecainide and anticoagulated on Eliquis. Patient is established with basic Cardiology (2) Hyperlipidemia: Code(s): E78.5 - Hyperlipidemia, unspecified Category: Medical Plan: Continue statin (3) HTN (hypertension): Code(s): I10 - Essential (primary) hypertension Category: Medical Plan: Blood pressure is low and patient was advised to stop taking amlodipine. She will follow-up in 1 month (4) Hyperglycemia: Comment: A1c is 5.7, 02/2025 Code(s): R73.9 - Hyperglycemia, unspecified Category: Medical Plan: Continue ADA diet, decrease caloric intake increase physical activity (5) Obesity: Code(s): E66.9 - Obesity, unspecified Category: Medical Plan: Decrease caloric intake increase physical activity weight loss discussed with the patient Orders: Orders Comprehensive [place]. Panel Fast 6 Months E78.5 - Hyperlipidemia, unspecified, I10 - Essential (primary) hypertension, I48.91 - Unspecified atrial fibrillation Complete Blood Count Auto Diff 6 Months E78.5 - Hyperlipidemia, unspecified, I10 - Essential (primary) hypertension, I48.91 - Unspecified atrial fibrillation Lipid Panel 6 Months E78.5 - Hyperlipidemia, unspecified, I10 - Essential (primary) hypertension, I48.91 - Unspecified atrial fibrillation Hemoglobin A1c 6 Months E78.5 - Hyperlipidemia, unspecified, I10 - Essential (primary) hypertension, I48.91 - Unspecified atrial fibrillation Medications: Refilled atorvastatin 20 mg PO DAILY 90 tabs 3RF
[2025-03-14 11:33] VITALS: BP 102/70; PULSE 70; RESP 16; TEMP 36.7; O2SAT 95; BMI 38.1
--- OUTSIDE RECORDS SUMMARY | 2025-03-14 12:08 | XMS_ITS | Patient Health Record ---
Author Organization [facility] Address [address] [facility] [address] [place] [address] Care Team Providers Care Senior Director Of [employer] Name Role Phone Danielito Lang MD Primary Care Provider Unava Alejandra Flores Unavailable [phone] Allergies Allergen (clinical drug ingredient) Drug/Non Drug [...] Status Risk Notes Problem Vitamin D deficiency (49569177) Vitamin D deficiency, unspecified (E55.9) Active confirmed Problem Obesity (284868857) Obesity, unspecified (E66.9) Active confirmed Problem Hyperlipidemia (01399947) Hyperlipidemia, unspecified (E78.5) Active confirmed Problem Essential hypertension (15608012) Essential (primary) hypertension (I10) Active confirmed Problem Atrial fibrillation (90930941) Unspecified atrial fibrillation (I48.91) Active confirmed Problem Allergic rhinitis (08321105) Allergic rhinitis, unspecified (J30.9) Active confirmed Problem Gastro-esophageal reflux disease without esophagitis (200473726) Gastro-esophageal reflux disease without esophagitis (K21.9) Active confirmed Problem Osteoarthritis (616642843) Unspecified osteoarthritis, unspecified site (M19.90) Active confirmed Problem Intervertebral disc disorder (67604250) Unspecified thoracic, 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) Active confirmed Problem Chronic kidney disease stage 2 (564949854) Chronic kidney disease, stage 2 (mild) (N18.2) Active confirmed Problem Urinary incontinence (510159458) Unspecified urinary incontinence (R32) Active confirmed Problem Artificial knee joint present (876027153464) Presence of unspecified artificial knee joint (Z96.659) Active confirmed Problem Pressure injury of deep tissue of sacral region of back (disorder) (7090775015703727 08) Pressure injury of deep tissue of sacral region (L89.156) Active confirmed Vital Signs Weight 242.4 lbs 09/14/2024 Weight reflecte d from 09/14/24 on [facility] Encounters Encounter Location Date Provider Diagnosis [address] [place] [address] 09/14/2024 Alejandra Monzon Pressure injury of deep [...] Insured Coverage Start Date Coverage End Date [facility] [address] [place], [place] [phone] [id number] Mary Cutler Self - patient is the [...]
--- OUTSIDE RECORDS SUMMARY | 2025-03-14 12:08 | XMS_ITS | Encounter Summary ---
Author Organization [facility] Address [address] [place] [address] Care Team Providers Care Skating Rink Ice Maker Name Role Phone Danielito Lang MD Primary Care Provider [phone]- [phone] Encounter Details Date Type Department Care Team (Late st Contact Info) Description 09/26/2024 Lab Requisition [facility] - Main Lab [address] [facility] [place] [address] Danielito Lang MD [address] [place] [address] Anemia, unspecified; Chronic kidney disease, stage 2 [...] mmol/L LAB CHEMISTRY METHOD 09/27/2024 1:18 PM [facility] Potassium 4.3 3.5 - 5.5 mmol/L LAB CHEMISTRY METHOD 09/27/2024 1:18 PM [facility] Chloride 111(H) 96 - 110 mmol/L LAB CHEMISTRY METHOD 09/27/2024 1:18 PM [facility] CO2 24 21 - 32 mmol/L LAB CHEMISTRY METHOD 09/27/2024 1:18 PM [facility] Anion Gap 9 3 - 11 LAB CHEMISTRY METHOD 09/27/2024 1:18 PM [facility] Glucose 81 70 - 100 mg/dL LAB CHEMISTRY METHOD 09/27/2024 1:18 PM [facility] BUN 11 5 - 25 mg/dL LAB CHEMISTRY METHOD 09/27/2024 1:18 PM [facility] Creatinine 0.53 0.50 - 1.10 mg/dL LAB CHEMISTRY METHOD 09/27/2024 1:18 PM [facility] eGFR 92 >=60 mL/min/1. 73m2 LAB CHEMISTRY METHOD 09/27/2024 1:18 PM [facility] Comment:Calculation based on the Chronic Kidney Disease Epidemiology Collaboration (CKD-EPI) equation refit without adjustment for race. BUN/Creatinine Ratio 20.8 LAB CHEMISTRY METHOD 09/27/2024 1:18 PM [facility] Calcium 8.3(L) 8.5 - 10.5 mg/dL LAB CHEMISTRY METHOD 09/27/2024 1:18 PM [facility] AST (SGOT) 25 10 - 42 unit/L LAB CHEMISTRY METHOD 09/27/2024 1:18 PM [facility] ALT (SGPT) 30 10 - 60 unit/L LAB CHEMISTRY METHOD 09/27/2024 1:18 PM EDT [facility] Alkaline Phosphatase 203(H) 42 - 121 unit/L LAB CHEMISTRY METHOD 09/27/2024 1:18 PM EDT [facility] Total Protein 5.5(L) 6.0 - 8.0 g/dL LAB CHEMISTRY METHOD 09/27/2024 1:18 PM EDT [facility] Albumin 2.6(L) 3.2 - 5.0 g/dL LAB CHEMISTRY METHOD 09/27/2024 1:18 PM EDT [facility] Total Bilirubin 0.7 0.0 - 1.4 mg/dL LAB CHEMISTRY METHOD 09/27/2024 1:18 PM EDT [facility] Blood Venous blood specimen / Unknown Venipuncture / Unknown 09/27/2024 8:43 AM EDT 09/27/2024 10:31 AM EDT us Danielito Lang MD LAB BLOOD ORDERABLES Final Result [facility] [address] [place] [address], * (ABNORMAL) Complete blood count (09/27/2024 8:43 AM EDT) WBC 8.1 4.8 - 10.8 K/mcL LAB HEMETOLOGY METHOD 09/27/2024 12:06 PM EDT [facility] RBC 3.10(L) 3.80 - 4.80 M/mcL LAB HEMETOLOGY METHOD 09/27/2024 12:06 PM EDT [facility] Hemoglobin 9.6(L) 11.5 - 16.0 g/dL LAB HEMETOLOGY METHOD 09/27/2024 12:06 PM EDT [facility] Hematocrit 31.7(L) 35.0 - 47.0 % LAB HEMETOLOGY METHOD 09/27/2024 12:06 PM EDT [facility] MCV 101.9(H) 79.0 - 98.0 FL LAB HEMETOLOGY METHOD 09/27/2024 12:06 PM EDT [facility] MCH 30.9 27.0 - 32.0 pcg LAB HEMETOLOGY METHOD 09/27/2024 12:06 PM EDT [facility] MCHC 30.3(L) 32.0 - 37.0 g/dL LAB HEMETOLOGY METHOD 09/27/2024 12:06 PM EDT [facility] RDW 15.9(H) 11.0 - 15.0 % LAB HEMETOLOGY METHOD 09/27/2024 12:06 PM EDT [facility] Platelets 548(H) 130 - 400 K/mcL LAB HEMETOLOGY METHOD 09/27/2024 12:06 PM EDT [facility] MPV 9.8 7.0 - 11.0 FL LAB HEMETOLOGY METHOD 09/27/2024 12:06 PM EDT [facility] NRBC 0.0 <1.0 % LAB HEMETOLOGY METHOD [facility] NR[facility] Absolute 0.00 <0.10 K/mcL LAB HEMETOLOGY METHOD 09/27[facility]24 [facility] Blood Venous blood specimen / Unknown Venipuncture / Unknown 09/27/2024 8:43 AM EDT 09/27/2024 10:31 AM EDT us Danielito Lang MD LAB BLOOD ORDERABLES Final Result [facility] [address] [place] [address], documented in this encounter Visit Diagnoses Diagnosis Anemia, unspecified Chronic kidney disease, stage 2 (mild) Elevated white blood cell count, unspecified documented in this encounter Care Teams Skating Rink Ice Maker Relationship Specialty Start Date End Date Danielito Lang MD [address] [id number] PCP - General Internal Medicine 09/15/24 documented as of this encounter
--- OUTSIDE RECORDS SUMMARY | 2025-03-14 12:08 | XMS_ITS | Clinical Summary ---
Author Organization [address] Address [address] [place] [address] Phone Care Team Providers Care Bakery Chef Name Role Phone Danielito Lang MD Primary Care Provider [phone]- [phone] Surgical History Surgery Date Site/Laterality Comments TOTAL KNEE ARTHROPLASTY Bilateral PROCEDURE: HISTORICAL TOTAL KNEE REPLACE BACK SURGERY october 2013 PROCEDURE: HISTORICAL BACK SURGERY OTHER SURGICAL HISTORY PROCEDURE: PELVIC CONTROL PELVIC SLING CHOLECYSTECTOMY PROCEDURE: HISTORICAL CHOLECYSTECTOMY OTHER SURGICAL HISTORY PROCEDURE: NH STAB PHLEBT VARICOSE VEINS 1 XTR 10-20 STAB INCS OTHER SURGICAL HISTORY PROCEDURE: NH EXCISION INTERDIGITAL AKBAR NEUROMA SINGLE EACH CARPAL TUNNEL RELEASE PROCEDURE: NH NEUROPLASTY &/TRANSPOS MEDIAN NRV CARPAL TUNNE HIP [...] stress and urge uri nary incontinence; COMMENT: [facility] urology DJD (degenerative joint dise ase) [...] mmol/L LAB CHEMISTRY METHOD 10/04/2024 11:47 AM [facility] Potassium 4.2 3.5 - 5.5 mmol/L LAB CHEMISTRY METHOD 10/04/2024 11:47 AM [facility] Chloride 111(H) 96 - 110 mmol/L LAB CHEMISTRY METHOD 10/04/2024 11:47 AM [facility] CO2 26 21 - 32 mmol/L LAB CHEMISTRY METHOD 10/04/2024 11:47 AM [facility] Anion Gap 7 3 - 11 LAB CHEMISTRY METHOD 10/04/2024 11:47 AM [facility] Glucose 87 70 - 100 mg/dL LAB CHEMISTRY METHOD 10/04/2024 11:47 AM EDT [facility] BUN 7 5 - 25 mg/dL LAB CHEMISTRY METHOD 10/04/2024 11:47 AM EDT [facility] Creatinine 0.48(L) 0.50 - 1.10 mg/dL LAB CHEMISTRY METHOD 10/04/2024 11:47 AM EDT [facility] eGFR 95 >=60 mL/min/1. 73m2 LAB CHEMISTRY METHOD 10/04/2024 11:47 AM EDT [facility] Comment:Calculation based on the Chronic Kidney Disease Epidemiology Collaboration (CKD-EPI) equation refit without adjustment for race. BUN/Creatinine Ratio 14.6 LAB CHEMISTRY METHOD 10/04/2024 11:47 AM EDT [facility] Calcium 8.5 8.5 - 10.5 mg/dL LAB CHEMISTRY METHOD 10/04/2024 11:47 AM T [facility] Blood Venous blood specimen / Unknown Venipuncture / Unknown 10/04/2024 7:40 AM EDT 10/04/2024 10:03 AM EDT Danielito Lang MD LAB BLOOD ORDERABLES Final Result [facility] [address] [place] [address], from Last 3 Months or Most Recently Relevant to Health Maintenance Insurance [employer] ADV[employer]AGE [facility] Advance Directives Documents on File Type Date Recorded Patient Assistant Chief Nursing Officer Expl anation Health Care Decision (hx) 09/28/2019 AD ENCARNACION DIRECTIVE Health Care Decision (hx) 09/28/2019 AD ENCARNACION DIRECTIVE Care Teams Bakery Chef Relationship Specialty Start Date End Date Danielito Lang MD [address] [place] [id number] PCP - General Internal Medicine 09/15/24
--- OUTSIDE RECORDS SUMMARY | 2025-03-14 12:08 | XMS_ITS | Encounter Summary ---
Author Organization [facility] Address [address] [place] [address] Care Team Providers Care Upholstery Tech Name Role Phone Danielito Lang MD Primary Care Provider +1- [phone] Encounter Details Date Type Department Care Team (Late st Contact Info) Description 09/14/2024 Lab Requisition [facility] - Main Lab [address] [facility] [place] [address] Danielito Lang MD [address] [place] [id number] Chronic kidney disease, stage 3 unspecified (CMS/HCC [...] K/mcL LAB HEMETOLOGY METHOD 09/15/2024 1:11 PM [facility] RBC 3.10(L) 3.80 - 4.80 M/mcL LAB HEMETOLOGY METHOD 09/15/2024 1:11 PM [facility] Hemoglobin 9.6(L) 11.5 - 16.0 g/dL LAB HEMETOLOGY METHOD 09/15/2024 1:11 PM [facility] Hematocrit 30.9(L) 35.0 - 47.0 % LAB HEMETOLOGY METHOD 09/15/2024 1:11 PM [facility] MCV 99.7(H) 79.0 - 98.0 FL LAB HEMETOLOGY METHOD 09/15/2024 1:11 PM [facility] MCH 31.0 27.0 - 32.0 pcg LAB HEMETOLOGY METHOD 09/15/2024 1:11 PM [facility] MCHC 31.1(L) 32.0 - 37.0 g/dL LAB HEMETOLOGY METHOD 09/15/2024 1:11 PM [facility] RDW 15.1(H) 11.0 - 15.0 % LAB HEMETOLOGY METHOD 09/15/2024 1:11 PM [facility] Platelets 393 130 - 400 K/mcL LAB HEMETOLOGY METHOD 09/15/2024 1:11 PM [facility] MPV 10.7 7.0 - 11.0 FL LAB HEMETOLOGY METHOD 09/15/2024 1:11 PM [facility] NRBC 0.0 <1.0 % LAB HEMETOLOGY METHOD 09/15/2024 1:11 PM [facility] NRBC Absolute 0.00 <0.10 K/mcL LAB HEMETOLOGY METHOD 09/15/2024 1:11 PM [facility] Neutrophils Relative 75.9 % LAB HEMETOLOGY METHOD 09/15/2024 1:11 PM [facility] Lymphocytes Relative 12.1 % LAB HEMETOLOGY METHOD 09/15/2024 1:11 PM [facility] Monocytes Relative 7.8 % LAB HEMETOLOGY METHOD 09/15/2024 1:11 PM [facility] Eosinophils Relative 2.9 % LAB HEMETOLOGY METHOD 09/15/2024 1:11 PM [facility] Basophils Relative 0.5 % LAB HEMETOLOGY METHOD 09/15/2024 1:11 PM [facility] Immature Granulocytes Relative 0.8 % LAB HEMETOLOGY METHOD 09/15/2024 1:11 PM [facility] Neutrophils Absolute 13.08(H) 1.50 - 7.00 K/mcL LAB HEMETOLOGY METHOD 09/15/2024 1:11 PM [facility] Lymphocytes Absolute 2.08 1.00 - 5.00 K/mcL LAB HEMETOLOGY METHOD 09/15/2024 1:11 PM [facility] Monocytes Absolute 1.35(H) 0.20 - 1.00 K/mcL LAB HEMETOLOGY METHOD 09/15/2024 1:11 PM [facility] Eosinophils Absolute 0.50 0.00 - 0.50 K/mcL LAB HEMETOLOGY METHOD 09/15/2024 1:11 PM [facility] Basophils Absolute 0.08 0.00 - 0.20 K/mcL LAB HEMETOLOGY METHOD 09/15/2024 1:11 PM [facility] Immature Granulocytes Absolute 0.14(H) 0.00 - 0.03 K/mcL LAB HEMETOLOGY METHOD 09/15/2024 1:11 PM [facility] Blood Venous blood specimen / Unknown Venipuncture / Unknown 09/15/2024 6:00 AM EST 09/15/2024 10:50 AM EST us Danielito Lang MD LAB BLOOD ORDERABLES Final Result [facility] [address] [place] [address], * (ABNORMAL) Comprehensive metabolic panel (09/15/2024 6:00 AM EST) Sodium 134 133 - 145 mmol/L LAB CHEMISTRY METHOD 09/15/2024 5:29 PM [facility] Potassium 4.4 3.5 - 5.5 mmol/L LAB CHEMISTRY METHOD 09/15/2024 5:29 PM [facility] Chloride 103 96 - 110 mmol/L LAB CHEMISTRY METHOD 09/15/2024 5:29 PM [facility] CO2 26 21 - 32 mmol/L LAB CHEMISTRY METHOD 09/15/2024 5:29 PM [facility] Anion Gap 5 3 - 11 LAB CHEMISTRY METHOD 09/15/2024 5:29 PM [facility] Glucose 82 70 - 100 mg/dL LAB CHEMISTRY METHOD 09/15/2024 5:29 PM [facility] BUN 13 5 - 25 mg/dL LAB CHEMISTRY METHOD 09/15/2024 5:29 PM [facility] Creatinine 0.44(L) 0.50 - 1.10 mg/dL LAB CHEMISTRY METHOD 09/15/2024 5:29 PM [facility] eGFR 97 >=60 mL/min/1. 73m2 LAB CHEMISTRY METHOD 09/15/2024 5:29 PM [facility] Comment:Calculation based on the Chronic Kidney Disease Epidemiology Collaboration (CKD-EPI) equation refit without adjustment for race. BUN/Creatinine Ratio 29.5 LAB CHEMISTRY METHOD 09/15/2024 5:29 PM [facility] Calcium 8.3(L) 8.5 - 10.5 mg/dL LAB CHEMISTRY METHOD 09/15/2024 5:29 PM [facility] AST (SGOT) 58(H) 10 - 42 unit/L LAB CHEMISTRY METHOD 09/15/2024 5:29 PM [facility] ALT (SGPT) 70(H) 10 - 60 unit/L LAB CHEMISTRY METHOD 09/15/2024 5:29 PM [facility] Alkaline Phosphatase 116 42 - 121 unit/L LAB CHEMISTRY METHOD 09/15/2024 5:29 PM [facility] Total Protein 5.4(L) 6.0 - 8.0 g/dL LAB CHEMISTRY METHOD 09/15/2024 5:29 PM [facility] Albumin 2.3(L) 3.2 - 5.0 g/dL LAB CHEMISTRY METHOD 09/15/2024 5:29 PM [facility] Total Bilirubin 1.2 0.0 - 1.4 mg/dL LAB CHEMISTRY METHOD 09/15/2024 5:29 PM [facility] Blood Venous blood specimen / Unknown Venipuncture / Unknown 09/15/2024 6:00 AM EST 09/15/2024 10:50 AM EST us Danielito Lang MD LAB BLOOD ORDERABLES Final Result [facility] [address] [place] [address], documented in this encounter Visit Diagnoses Diagnosis Chronic kidney disease, stage 3 unspecified (CMS/HCC V24, CMS/HCC V28) Anemia, unspecified documented in this encounter Care Teams Upholstery Tech Relationship Specialty Start Date End Date Danielito Lang MD [address] [place] [address] PCP - General Internal Medicine 09/15/24 documented as of this encounter
--- OUTSIDE RECORDS SUMMARY | 2025-03-14 12:08 | XMS_ITS | Encounter Summary ---
Author Organization [facility] Address [address] [place] [address] Care Team Providers Care Photographic Laboratory Supervisor Name Role Phone Danielito Lang MD Primary Care Provider +1- [phone] Encounter Details Date Type Department Care Team (Late st Contact Info) Description 09/19/2024 Lab Requisition [facility] - Main Lab 299 [facility] [place] [address] Danielito Lang MD [address] [place] [address] Anemia, unspecified; Chronic kidney disease, stage 2 [...] mmol/L LAB CHEMISTRY METHOD 09/20/2024 11:[address] [facility] Potassium 5.2 3.5 - 5.5 mmol/L LAB CHEMISTRY METHOD 09/20/2024 11:[address] [facility] Chloride 109 96 - 110 mmol/L LAB CHEMISTRY METHOD 09/20/2024 11:[address] [facility] CO2 26 21 - 32 mmol/L LAB CHEMISTRY METHOD 09/20/2024 11:[address] [facility] Anion Gap 6 3 - 11 LAB CHEMISTRY METHOD 09/20/2024 11:[address] [facility] Glucose 76 70 - 100 mg/dL LAB CHEMISTRY METHOD 09/20/2024 11:[address] [facility] BUN 18 5 - 25 mg/dL LAB CHEMISTRY METHOD 09/20/2024 11:[address] [facility] Creatinine 0.52 0.50 - 1.10 mg/dL LAB CHEMISTRY METHOD 09/20/2024 11:[address] [facility] eGFR 93 >=60 mL/min/1. 73m2 LAB CHEMISTRY METHOD 09/20/2024 11:[address] [facility] Comment:Calculation based on the Chronic Kidney Disease Epidemiology Collaboration (CKD-EPI) equation refit without adjustment for race. BUN/Creatinine Ratio 34.6 LAB CHEMISTRY METHOD 09/20/2024 11:[address] [facility] Calcium 8.3(L) 8.5 - 10.5 mg/dL LAB CHEMISTRY METHOD 09/20/2024 11:[address] [facility] Blood Venous blood specimen / Unknown Venipuncture / Unknown 09/20/2024 5:02 AM EST 09/20/2024 10:59 AM EST us Danielito Lang MD LAB BLOOD ORDERABLES Final Result [facility] [address] [place] [address], * (ABNORMAL) Complete blood count (09/20/2024 5:02 AM EST) [facility] Signature WBC 12.9(H) 4.8 - 10.8 K/mcL LAB HEMETOLOGY METHOD 09/20/2024 11:[address] [facility] RBC 3.00(L) 3.80 - 4.80 M/mcL LAB HEMETOLOGY METHOD 09/20/2024 11:[address] [facility] Hemoglobin 9.1(L) 11.5 - 16.0 g/dL LAB HEMETOLOGY METHOD 09/20/2024 11:[address] [facility] Hematocrit 30.1(L) 35.0 - 47.0 % LAB HEMETOLOGY METHOD 09/20/2024 11:[address] [facility] MCV 101.7(H) 79.0 - 98.0 FL LAB HEMETOLOGY METHOD 09/20/2024 11:[address] [facility] MCH 30.7 27.0 - 32.0 pcg LAB HEMETOLOGY METHOD 09/20/2024 11:[address] [facility] MCHC 30.2(L) 32.0 - 37.0 g/dL LAB HEMETOLOGY METHOD 09/20/2024 11:[address] [facility] RDW 15.1(H) 11.0 - 15.0 % LAB HEMETOLOGY METHOD 09/20/2024 11:[address] [facility] Platelets 541(H) 130 - 400 K/mcL LAB HEMETOLOGY METHOD 09/20/2024 11:[address] [facility] MPV 10.4 7.0 - 11.0 FL LAB HEMETOLOGY METHOD 09/20/2024 11:[address] [facility] NRBC 0.0 <1.0 [...] Final Result [facility] [address] [place] [address], documented in this encounter Visit Diagnoses Diagnosis Anemia, unspecified Chronic kidney disease, stage 2 (mild) documented in this encounter Care Teams Photographic Laboratory Supervisor Relationship Specialty Start Date End Date Danielito Lang MD [address] [place] [id number] PCP - General Internal Medicine 09/15/24 documented as of this encounter
--- OUTSIDE RECORDS SUMMARY | 2025-03-14 12:08 | XMS_ITS | Encounter Summary ---
Author Organization [facility] Address [address] [place] [address] Care Team Providers Care Household Cook Name Role Phone Danielito Lang MD Primary Care Provider +1- [phone] Encounter Details Date Type Department Care Team (Late st Contact Info) Description 10/03/2024 Lab Requisition [facility] - Main Lab [address] [facility] [place] [address] Danielito Lang MD [address] [place] [address] Anemia, unspecified; Chronic kidney disease, stage 2 [...] mmol/L LAB CHEMISTRY METHOD 10/04/2024 11:47 AM [facility] Potassium 4.2 3.5 - 5.5 mmol/L LAB CHEMISTRY METHOD 10/04/2024 11:47 AM [facility] Chloride 111(H) 96 - 110 mmol/L LAB CHEMISTRY METHOD 10/04/2024 11:47 AM [facility] CO2 26 21 - 32 mmol/L LAB CHEMISTRY METHOD 10/04/2024 11:47 AM [facility] Anion Gap 7 3 - 11 LAB CHEMISTRY METHOD 10/04/2024 11:47 AM [facility] Glucose 87 70 - 100 mg/dL LAB CHEMISTRY METHOD 10/04/2024 11:47 AM [facility] BUN 7 5 - 25 mg/dL LAB CHEMISTRY METHOD 10/04/2024 11:47 AM [facility] Creatinine 0.48(L) 0.50 - 1.10 mg/dL LAB CHEMISTRY METHOD 10/04/2024 11:47 AM [facility] eGFR 95 >=60 mL/min/1. 73m2 LAB CHEMISTRY METHOD 10/04/2024 11:47 AM [facility] Comment:Calculation based on the Chronic Kidney Disease Epidemiology Collaboration (CKD-EPI) equation refit without adjustment for race. BUN/Creatinine Ratio 14.6 LAB CHEMISTRY METHOD 10/04/2024 11:47 AM [facility] Calcium 8.5 8.5 - 10.5 mg/dL LAB CHEMISTRY METHOD 10/04/2024 11:47 AM [facility] Blood Venous blood specimen / Unknown Venipuncture / Unknown 10/04/2024 7:40 AM EDT 10/04/2024 10:03 AM EDT us Danielito Lang MD LAB BLOOD ORDERABLES Final Result [facility] [address] [place] [address], * (ABNORMAL) Complete blood count (10/04/2024 7:40 AM EDT) WBC 7.2 4.8 - 10.8 K/mcL LAB HEMETOLOGY METHOD 10/04/2024 10:36 AM EDT [facility] RBC 3.20(L) 3.80 - 4.80 M/mcL LAB HEMETOLOGY METHOD 10/04/2024 10:36 AM EDT [facility] Hemoglobin 10.1(L) 11.5 - 16.0 g/dL LAB HEMETOLOGY METHOD 10/04/2024 10:36 AM EDT [facility] Hematocrit 33.2(L) 35.0 - 47.0 % LAB HEMETOLOGY METHOD 10/04/2024 10:36 AM EDT [facility] MCV 103.4(H) 79.0 - 98.0 FL LAB HEMETOLOGY METHOD 10/04/2024 10:36 AM EDT [facility] MCH 31.5 27.0 - 32.0 pcg LAB HEMETOLOGY METHOD 10/04/2024 10:36 AM EDT [facility] MCHC 30.4(L) 32.0 - 37.0 g/dL LAB HEMETOLOGY METHOD 10/04/2024 10:36 AM EDT [facility] RDW 15.9(H) 11.0 - 15.0 % LAB HEMETOLOGY METHOD 10/04/2024 10:36 AM EDT [facility] Platelets 363 130 - 400 K/mcL LAB HEMETOLOGY METHOD 10/04/2024 10:36 AM EDT [facility] MPV 10.6 7.0 - 11.0 FL LAB HEMETOLOGY METHOD 10/04/2024 10:36 AM EDT [facility] NRBC 0.0 <1.0 % LAB HEMETOLOGY METHOD 10/04/2024 10:36 AM EDT [facility] NRBC Absolute 0.00 <0.10 K/mcL LAB HEMETOLOGY METHOD 10/04/2024 10:36 AM EDT [facility] Blood Venous blood specimen / Unknown Venipuncture / Unknown 10/04/2024 7:40 AM EDT 10/04/2024 10:03 AM EDT Danielito Lang MD LAB BLOOD ORDERABLES Final Result [facility] [address] [place] [address], documented in this encounter Visit Diagnoses Diagnosis Anemia, unspecified Chronic kidney disease, stage 2 (mild) documented in this encounter Care Teams Household Cook Relationship Specialty Start Date End Date Danielito Lang MD [address] [place] [id number] PCP - General Internal Medicine 09/15/24 documented as of this encounter
== END 2025-03-14 12:13 | disposition home or self-care (01) ==
LOC: HO.HMCC 11:11
PROVIDERS: PCP Internal Medicine; Visit Provider Internal Medicine
DX: I48.91 Unspecified atrial fibrillation (principal); E78.5 Hyperlipidemia, unspecified; E66.9 Obesity, unspecified; Z68.38 Body mass index [BMI] 38.0-38.9, adult; I10 Essential (primary) hypertension; R73.9 Hyperglycemia, unspecified

== ENCOUNTER → 2025-03-14 11:10 | Outpatient (BNVA) | payer MEDICARE, SELFPAY | PROVIDERS: PCP Internal Medicine; Visit Provider Internal Medicine | DX: I10 Essential (primary) hypertension (principal); I48.0 Paroxysmal atrial fibrillation; E78.5 Hyperlipidemia, unspecified; R42 Dizziness and giddiness; R73.9 Hyperglycemia, unspecified; E66.9 Obesity, unspecified; Z68.38 Body mass index [BMI] 38.0-38.9, adult | CPT/HCPCS: 99212 ==

== ENCOUNTER 2025-04-21 11:06 | Outpatient (AMB) | payer MEDICARE, SELFPAY ==
[2025-04-21 11:08] VITALS: BP 116/64; PULSE 54; RESP 18; TEMP 36.4; O2SAT 97; BMI 38.6
--- NOTE | 2025-04-21 11:08 | MHC.PC.OV ---
Vital Signs 04/21/25 11:08 Height 5 ft 4 in Weight 225 lb BMI 38.6 BP 116/64 Blood Pressure Location Lt brachial Position Sitting Respiration 18 Pulse 54 Pulse Source Pulse Oximeter Temp 97.6 F Temp Source Oral Pulse Oximetry (%) 97 Oxygen Delivery Method Room Air Intake Visit Reasons: 1 month f/up Intake Note: Pt is here today for 1 month follow up visit. Allergies ciprofloxacin (From Cipro) Allergy (Verified 04/21/25 11:09) vomiting oxybutynin Allergy (Verified 04/21/25 11:09) rash Sulfa (Sulfonamide Antibiotics) Allergy (Verified 04/21/25 11:09) rash gabapentin Adverse Reaction (Intermediate, Verified 04/21/25 11:09) Dizziness spironolactone Adverse Reaction (Intermediate, Verified 04/21/25 11:09) dry mouth Medication List - Last Reconciled 04/21/25 by Anastasia Angel MD apixaban (Eliquis) 5 mg PO BID atorvastatin 20 mg PO DAILY [coq10 100 mg daily] flecainide 50 mg PO BID folic acid 0.4 mg PO DAILY furosemide 20 mg PO DAILY metoprolol succinate ER 50 mg PO DAILY triamcinolone acetonide 0.025% 1 appl topical BID valsartan 320 mg PO DAILY vitamin B complex 1 tab PO DAILY Tobacco use date assessed: 04/21/25 Fall risk assessment: 1 Fall in past year Last assessed Fall Risk: 04/21/25 Dental Screening Dental Screen Date: 03/14/25 HPI 1 month f/up HPI Details Patient presents for the follow-up on hypertension hyperlipidemia history of AFib rhythm controlled on flecainide and anticoagulated on Eliquis. [facility] Medical History Hyperglycemia Atrial fibrillation with RVR Leg weakness, bilateral Annual physical exam Spinal stenosis of lumbar region Burning chest pain Edema Obesity Hyperlipidemia Osteoarthritis HTN (hypertension) Broken wrist Surgical History H/O colonoscopy History of carpal tunnel surgery History of right knee joint replacement History of total left knee replacement H/O: hysterectomy S/P cholecystectomy Family History Father Hypertension Mother Hypertension A-fib Sister Substance use disorder Social History Household Members Other:: lives alone, 2 daughters Housing: House Patient Tobacco Use Status: Former Tobacco user e-Cigarette/Vaping Use: Never Used service: No Current occupational status: retired Cognitive needs: No Hearing needs: No Vision needs: Yes Questionnaire PHQ-9 Over the last 2 weeks, how often have you been bothered by any of the following problems? 1. Little interest or pleasure in doing things: not at all 2. Feeling down, depressed, or hopeless: not at all 3. Trouble falling or staying asleep, or sleeping too much: several days 4. Feeling tired or having little energy: several days 5. Poor appetite or overeating: several days 6. Feeling bad about yourself - or that you are a failure or have let yourself or your family down: not at all 7. Trouble concentrating on things, such as reading the newspaper or watching television: not at all 8. Moving or speaking so slowly that other people could have noticed. Or the opposite - being so fidgety or restless that you have been moving around a lot more than usual: not at all 9. Thoughts that you would be better off or of hurting yourself in some way: not at all Total score: 3 Depression Screening Interpretation: Negative Depression Screening Done: Yes Source: Developed by Drs. Federico Wilburn, Mary Tillman, Claude Sullivan and colleagues, with an educational ezra from [employer]. Thrive Questionnaire Date Thrive assessed: 10/12/24 I am a: Patient What is your living situation today?: I have a steady place to live Within the past 12 months, did the food you bought not last and you didn't have the money to get more?: I choose not to answer this question Within the past 12 months, did you worry whether your food would run out before you got money to buy more?: I choose not to answer this question Do you have trouble paying for medicines?: I choose not to answer this question Do you have trouble getting transportation to medical appointments?: I choose not to answer this question Do you have trouble paying your heating and electricity bill?: No Do you have trouble taking care of your child, family member or friend?: No Do you have trouble with day-to-day activities such as bathing, preparing meals, shopping, managing finances, etc.?: No Are you currently unemployed and looking for a job?: No Are you interested in more education?: No Please select the resources that you would like help with: None Currently or been in a relationship where the following occur: I choose not to answer THRIVE Score: 0 DAVEY-7 AMB Questionnaire DAVEY-7 Date DAVEY - 7 assessed: 08/25/24 Feeling nervous, anxious, or on edge: 0 = Not at all Not being able to stop or control worryin = Not at all Worrying too much about different things: 0 = Not at all Trouble relaxin = Not at all Being so restless that it is hard to sit still: 0 = Not at all Becoming easily annoyed or irritable: 0 = Not at all Feeling afraid as if something awful might happen: 0 = Not at all Total DAVEY-7 score (0-4 normal; 5-9 mild; 10-14 moderate; 15-21 severe): 0 Source: Developed by Drs. Federico Wilburn, Mary Tillman, Claude Sullivan and colleagues, with an educational ezra from [employer]. Review of Systems Const All systems reviewed & are unremarkable except as noted in HPI and below ENT Reports no additional complaints Card Reports no additional complaints Resp Reports no additional complaints GI Reports no additional complaints Physical exam (Primary Care) Vital Signs: Last Vital Signs Temp 97.6 F 04/21/25 11:08 Pulse 54 04/21/25 11:08 Resp 18 04/21/25 11:08 BP 116/64 04/21/25 11:08 Pulse Ox 97 04/21/25 11:08 Oxygen Delivery Method Room Air 04/21/25 11:08 BMI result Body Mass Index 38.6 Tobacco/Smoking Status: Tobacco use Status Tobacco use date assessed 04/21/25 04/21/25 11:12 Patient Tobacco Use Status Former Tobacco user 04/21/25 11:12 e-Cigarette/Vaping Use Never Used 04/21/25 11:12 PHQ-9: PHQ-9 Score PHQ-9: Total score 3 04/21/25 11:18 Depression Screening Interpretation: Negative Thrive Assessment: Date of Thrive Assessment Date Thrive assessed 10/12/24 04/21/25 11:12 Currently or been in a relationship where the following occur: I choose not to answer Const General: no acute distress HENMT Face and sinus: Yes normal facial exam Resp Effort & Inspection: normal respiratory effort Auscultation: clear to auscultation bilaterally Cardio Rhythm: regular rhythm Heart sounds: S1 normal heart sound present and S2 normal heart sound present GI Inspection: Yes normal to inspection Percussion: Yes normal to percussion Coding Level of Care Code Est Pt Level 4 (91932) Diagnoses HTN (hypertension) I10 Atrial fibrillation with RVR I48.91 Hyperglycemia R73.9 Assessment & Plan Assessment & Plan (1) HTN (hypertension): Code(s): I10 - Essential (primary) hypertension Category: Medical Plan: Continue current medications (2) Atrial fibrillation with RVR: Comment: Status post cardioversion 09/2024 at [facility], on flecainide metoprolol and Eliquis, follow-up with [facility] Cardiology, Echo 08/2024 EF 65-70%, no segmental wall motion abnormalities Code(s): I48.91 - Unspecified atrial fibrillation Category: Medical Plan: Continue current medications follow-up with Cardiology (3) Hyperglycemia: Comment: A1c is 5.7, 02/2025 Code(s): R73.9 - Hyperglycemia, unspecified Category: Medical Plan: A1c was 5.7 ADA diet increase exercise weight loss discussed with the patient , she will return in 5 months with a fasting labs before Medications: Changed From metoprolol succinate ER 1 tabl qd with 25 mg of Metoprolol 50 mg PO DAILY 90 tabs 3RF To metoprolol succinate ER 50 mg PO DAILY 90 tabs 3RF Refilled flecainide 50 mg PO BID 180 tabs 3RF Discontinued amlodipine Discontinued Reason: Doctor's Order 2.5 mg PO DAILY 90 tabs 3RF
--- OUTSIDE RECORDS SUMMARY | 2025-04-21 12:23 | XMS_ITS | Encounter Summary ---
Author Organization [facility] Address [address] [place] [address] Care Team Providers Care Billet Cutter Name Role Phone Danielito Lang MD Primary Care Provider +1- [phone] Encounter Details Date Type Department Care Team (Late st Contact Info) Description 10/03/[address] [facility] - Main Lab [address] [facility] [place] [address] Danielito Lang MD [address] [place] [address] Anemia, unspecified; Chronic kidney disease, stage 2 [...] [facility] Comment:Calculation based on the Chronic Kidney Disease Epidemiology Collaboration (CKD-EPI) equation refit without adjustment for race. BUN/Creatinine Ratio 14.6 LAB CHEMISTRY METHOD 10/04/2024 11:[address] [facility] Calcium 8.5 8.5 - 10.5 mg/dL LAB CHEMISTRY METHOD 10/04/2024 11:[address] [facility] Blood Venous blood specimen / Unknown Venipuncture / Unknown 10/04/2024 7:40 AM EDT 10/04/2024 10:03 AM EDT us Danielito Lang MD LAB BLOOD ORDERABLES Final Result [facility] [address] [place] [address], * (ABNORMAL) Complete blood count (10/04/2024 7:40 AM EDT) WBC 7.2 4.8 - 10.8 K/mcL LAB HEMETOLOGY METHOD 10/04/2024 10:36 AM EDT [facility] RBC 3.20(L) 3.80 - 4.80 M/mcL LAB HEMETOLOGY METHOD 10/04/2024 10:36 AM EDT [facility] Hemoglobin 10.1(L) 11.5 - 16.0 g/dL LAB HEMETOLOGY METHOD 10/04/2024 10:36 AM EDT [facility] Hematocrit 33.2(L) 35.0 - 47.0 % LAB HEMETOLOGY METHOD 10/04/2024 10:36 AM EDT [facility] MCV 103.4(H) 79.0 - 98.0 FL LAB HEMETOLOGY METHOD 10/04/2024 10:36 AM EDT [facility] MCH 31.5 27.0 - 32.0 pcg LAB HEMETOLOGY METHOD 10/04/2024 10:36 AM EDT [facility] MCHC 30.4(L) 32.0 - 37.0 g/dL LAB HEMETOLOGY METHOD 10/04/2024 10:36 AM EDT [facility] RDW 15.9(H) 11.0 - 15.0 % LAB HEMETOLOGY METHOD 10/04/2024 10:36 AM EDT [facility] Platelets 363 130 - 400 K/mcL LAB HEMETOLOGY METHOD 10/04/2024 10:36 AM EDT [facility] MPV 10.6 7.0 - 11.0 FL LAB HEMETOLOGY METHOD 10/04/2024 10:36 AM EDT [facility] NRBC 0.0 <1.0 % LAB HEMETOLOGY METHOD 10/04/2024 10:36 AM EDT [facility] NRBC Absolute 0.00 <0.10 K/mcL LAB HEMETOLOGY METHOD 10/04/2024 10:36 AM EDT [facility] Blood Venous blood specimen / Unknown Venipuncture / Unknown 10/04/2024 7:40 AM EDT 10/04/2024 10:03 AM EDT Danielito Lang MD LAB BLOOD ORDERABLES Final Result [facility] [address] [place] [address], documented in this encounter Visit Diagnoses Diagnosis Anemia, unspecified Chronic kidney disease, stage 2 (mild) documented in this encounter Care Teams Billet Cutter Relationship Specialty Start Date End Date Danielito Lang MD [address] [place] [phone] PCP - General Internal Medicine 09/15/24 documented as of this encounter
--- OUTSIDE RECORDS SUMMARY | 2025-04-21 12:23 | XMS_ITS | Encounter Summary ---
Author Organization [facility] Address [address] [place] [address] Care Team Providers Care Social Work Program Coordinator Name Role Phone Danielito Lang MD Primary Care Provider +1- [phone] Encounter Details Date Type Department Care Team (Late st Contact Info) Description 09/26/2024 Lab Requisition [facility] - Main Lab [address] [facility] [place] [address] Danielito Lang MD [address] [place] [address] Anemia, unspecified; Chronic kidney disease, stage 2 [...] mmol/L LAB CHEMISTRY METHOD 09/27/2024 1:18 PM [facility] Potassium 4.3 3.5 - 5.5 mmol/L LAB CHEMISTRY METHOD 09/27/2024 1:18 PM [facility] Chloride 111(H) 96 - 110 mmol/L LAB CHEMISTRY METHOD 09/27/2024 1:18 PM [facility] CO2 24 21 - 32 mmol/L LAB CHEMISTRY METHOD 09/27/2024 1:18 PM [facility] Anion Gap 9 3 - 11 LAB CHEMISTRY METHOD 09/27/2024 1:18 PM [facility] Glucose 81 70 - 100 mg/dL LAB CHEMISTRY METHOD 09/27/2024 1:18 PM [facility] BUN 11 5 - 25 mg/dL LAB CHEMISTRY METHOD 09/27/2024 1:18 PM [facility] Creatinine 0.53 0.50 - 1.10 mg/dL LAB CHEMISTRY METHOD 09/27/2024 1:18 PM [facility] eGFR 92 >=60 mL/min/1. 73m2 LAB CHEMISTRY METHOD 09/27/2024 1:18 PM [facility] Comment:Calculation based on the Chronic Kidney Disease Epidemiology Collaboration (CKD-EPI) equation refit without adjustment for race. BUN/Creatinine Ratio 20.8 LAB CHEMISTRY METHOD 09/27/2024 1:18 PM [facility] Calcium 8.3(L) 8.5 - 10.5 mg/dL LAB CHEMISTRY METHOD 09/27/2024 1:18 PM [facility] AST (SGOT) 25 10 - 42 unit/L LAB CHEMISTRY METHOD 09/27/2024 1:18 PM [facility] ALT (SGPT) 30 10 - 60 unit/L LAB CHEMISTRY METHOD 09/27/2024 1:18 PM EDT [facility] Alkaline Phosphatase 203(H) 42 - 121 unit/L LAB CHEMISTRY METHOD 09/27/2024 1:18 PM EDT [facility] Total Protein 5.5(L) 6.0 - 8.0 g/dL LAB CHEMISTRY METHOD 09/27/2024 1:18 PM EDT [facility] Albumin 2.6(L) 3.2 - 5.0 g/dL LAB CHEMISTRY METHOD 09/27/2024 1:18 PM EDT [facility] Total Bilirubin 0.7 0.0 - 1.4 mg/dL LAB CHEMISTRY METHOD 09/27/2024 1:18 PM EDT [facility] Blood Venous blood specimen / Unknown Venipuncture / Unknown 09/27/2024 8:43 AM EDT 09/27/2024 10:31 AM EDT us Danielito Lang MD LAB BLOOD ORDERABLES Final Result [facility] [address] [place] [address], * (ABNORMAL) Complete blood count (09/27/2024 8:43 AM EDT) WBC 8.1 4.8 - 10.8 K/mcL LAB HEMETOLOGY METHOD 09/27/2024 12:06 PM EDT [facility] RBC 3.10(L) 3.80 - 4.80 M/mcL LAB HEMETOLOGY METHOD 09/27/2024 12:06 PM EDT [facility] Hemoglobin 9.6(L) 11.5 - 16.0 g/dL LAB HEMETOLOGY METHOD 09/27/2024 12:06 PM EDT [facility] Hematocrit 31.7(L) 35.0 - 47.0 % LAB HEMETOLOGY METHOD 09/27/2024 12:06 PM EDT [facility] MCV 101.9(H) 79.0 - 98.0 FL LAB HEMETOLOGY METHOD 09/27/2024 12:06 PM EDT [facility] MCH 30.9 27.0 - 32.0 pcg LAB HEMETOLOGY METHOD 09/27/2024 12:06 PM EDT [facility] MCHC 30.3(L) 32.0 - 37.0 g/dL LAB HEMETOLOGY METHOD 09/27/2024 12:06 PM EDT [facility] RDW 15.9(H) 11.0 - 15.0 % LAB HEMETOLOGY METHOD 09/27/2024 12:06 PM EDT [facility] Platelets 548(H) 130 - 400 K/mcL LAB HEMETOLOGY METHOD 09/27/2024 12:06 PM EDT [facility] MPV 9.8 7.0 - 11.0 FL LAB HEMETOLOGY METHOD 09/27/2024 12:06 PM EDT [facility] NRBC 0.0 <1.0 % LAB HEMETOLOGY [facility] NRBC Absolute 0.00 <0.10 K/mcL LAB HEMETOLOGY METHOD 09/27[facility]24 [facility] Blood Venous blood specimen / Unknown Venipuncture / Unknown 09/27/2024 8:43 AM EDT 09/27/2024 10:31 AM EDT us Danielito Lang MD LAB BLOOD ORDERABLES Final Result [facility] [address] [place] [address], documented in this encounter Visit Diagnoses Diagnosis Anemia, unspecified Chronic kidney disease, stage 2 (mild) Elevated white blood cell count, unspecified documented in this encounter Care Teams Social Work Program Coordinator Relationship Specialty Start Date End Date Danielito Lang MD [address] [phone] PCP - General Internal Medicine 09/15/24 documented as of this encounter
--- OUTSIDE RECORDS SUMMARY | 2025-04-21 12:23 | XMS_ITS | Clinical Summary ---
Author Organization [address] [facility] Address [address] [place] [address] Phone Care Team Providers Care Deputy Sheriff Custody Name Role Phone Danielito Lang MD Primary Care Provider +1- [phone] Surgical History Surgery Date Site/Laterality Comments TOTAL KNEE ARTHROPLASTY Bilateral PROCEDURE: HISTORICAL TOTAL KNEE REPLACE BACK SURGERY october 2013 PROCEDURE: HISTORICAL BACK SURGERY OTHER SURGICAL HISTORY PROCEDURE: PELVIC CONTROL PELVIC SLING CHOLECYSTECTOMY PROCEDURE: HISTORICAL CHOLECYSTECTOMY OTHER SURGICAL HISTORY PROCEDURE: WV STAB PHLEBT VARICOSE VEINS 1 XTR 10-20 STAB INCS OTHER SURGICAL HISTORY PROCEDURE: WV EXCISION INTERDIGITAL AKBAR NEUROMA SINGLE EACH CARPAL TUNNEL RELEASE PROCEDURE: [place] NEUROPLASTY &/TRANSPOS MEDIAN NRV CARPAL TUNNE HIP [...] stress and urge uri nary incontinence; COMMENT: [facility] urology DJD (degenerative joint dise [...] Patients (1 - 1-dose 75+ series) 2017 Depression Screening 07/20/2024 Cholesterol Screening (Lipid Panel) 09/20/2024 Falls Risk Assessment 09/20/2024 Medicare Annual Wellness Visit 09/20/2024 Osteoporosis Screening (Bone Density Screening) 09/20/2024 Social Influencers of Health Screening 09/20/2024 COVID-19 Vaccine ( season) 2025 Influenza Vaccine (#1) 2025 8, 04/20/2017, 05/18/2016, [...] mmol/L LAB CHEMISTRY METHOD 10/04/2024 11:47 AM [facility] Potassium 4.2 3.5 - 5.5 mmol/L LAB CHEMISTRY METHOD 10/04/2024 11:47 AM [facility] Chloride 111(H) 96 - 110 mmol/L LAB CHEMISTRY METHOD 10/04/2024 11:47 AM [facility] CO2 26 21 - 32 mmol/L LAB CHEMISTRY METHOD 10/04/2024 11:47 AM [facility] Anion Gap 7 3 - 11 LAB CHEMISTRY METHOD 10/04/2024 11:47 AM [facility] Glucose 87 70 - 100 mg/dL LAB CHEMISTRY METHOD 10/04/2024 11:47 AM EDT [facility] BUN 7 5 - 25 mg/dL LAB CHEMISTRY METHOD 10/04/2024 11:47 AM EDT [facility] Creatinine 0.48(L) 0.50 - 1.10 mg/dL LAB CHEMISTRY METHOD 10/04/2024 11:47 AM EDT [facility] eGFR 95 >=60 mL/min/1. 73m2 LAB CHEMISTRY METHOD 10/04/2024 11:47 AM EDT [facility] Comment:Calculation based on the Chronic Kidney Disease Epidemiology Collaboration (CKD-EPI) equation refit without adjustment for race. BUN/Creatinine Ratio 14.6 LAB CHEMISTRY METHOD 10/04/2024 11:47 AM EDT [facility] Calcium 8.5 8.5 - 10.5 mg/dL LAB CHEMISTRY METHOD 10/04/2024 11:47 AM T [facility] Blood Venous blood specimen / Unknown Venipuncture / Unknown 10/04/2024 7:40 AM EDT 10/04/2024 10:03 AM EDT Danielito Lang MD LAB BLOOD ORDERABLES Final Result [facility] [address] [place] [address], from Last 3 Months or Most Recently Relevant to Health Maintenance Insurance [employer]AGE [facility] Advance Directives Documents on File Type Date Recorded Patient Patternmaker Expl anation Health Care Decision (hx) 09/28/2019 AD ENCARNACION DIRECTIVE Health Care Decision (hx) 09/28/2019 AD ENCARNACION DIRECTIVE Care Teams Deputy Sheriff Custody Relationship Specialty Start Date End Date Danielito Lang MD [address] [place] [id number] PCP - General Internal Medicine 09/15/24
--- OUTSIDE RECORDS SUMMARY | 2025-04-21 12:23 | XMS_ITS | Encounter Summary ---
Author Organization [facility] Address [address] [place] [address] Care Team Providers Care Heel Brusher Name Role Phone Danielito Lang MD Primary Care Provider +1- [phone] Encounter Details Date Type Department Care Team (Late st Contact Info) Description 09/14/2024 Lab Requisition [facility] - Main Lab [address] [facility] [place] [address] Danielito Lang MD [address] [place] [phone] Chronic kidney disease, stage 3 unspecified (CMS/HCC [...] K/mcL LAB HEMETOLOGY METHOD 09/15/2024 1:11 PM [facility] RBC 3.10(L) 3.80 - 4.80 M/mcL LAB HEMETOLOGY METHOD 09/15/2024 1:11 PM [facility] Hemoglobin 9.6(L) 11.5 - 16.0 g/dL LAB HEMETOLOGY METHOD 09/15/2024 1:11 PM [facility] Hematocrit 30.9(L) 35.0 - 47.0 % LAB HEMETOLOGY METHOD 09/15/2024 1:11 PM [facility] MCV 99.7(H) 79.0 - 98.0 FL LAB HEMETOLOGY METHOD 09/15/2024 1:11 PM [facility] MCH 31.0 27.0 - 32.0 pcg LAB HEMETOLOGY METHOD 09/15/2024 1:11 PM [facility] MCHC 31.1(L) 32.0 - 37.0 g/dL LAB HEMETOLOGY METHOD 09/15/2024 1:11 PM [facility] RDW 15.1(H) 11.0 - 15.0 % LAB HEMETOLOGY METHOD 09/15/2024 1:11 PM [facility] Platelets 393 130 - 400 K/mcL LAB HEMETOLOGY METHOD 09/15/2024 1:11 PM [facility] MPV 10.7 7.0 - 11.0 FL LAB HEMETOLOGY METHOD 09/15/2024 1:11 PM [facility] NRBC 0.0 <1.0 % LAB HEMETOLOGY METHOD 09/15/2024 1:11 PM [facility] NRBC Absolute 0.00 <0.10 K/mcL LAB HEMETOLOGY METHOD 09/15/2024 1:11 PM [facility] Neutrophils Relative 75.9 % LAB HEMETOLOGY METHOD 09/15/2024 1:11 PM [facility] Lymphocytes Relative 12.1 % LAB HEMETOLOGY METHOD 09/15/2024 1:11 PM [facility] Monocytes Relative 7.8 % LAB HEMETOLOGY METHOD 09/15/2024 1:11 PM [facility] Eosinophils Relative 2.9 % LAB HEMETOLOGY METHOD 09/15/2024 1:11 PM [facility] Basophils Relative 0.5 % LAB HEMETOLOGY METHOD 09/15/2024 1:11 PM [facility] Immature Granulocytes Relative 0.8 % LAB HEMETOLOGY METHOD 09/15/2024 1:11 PM [facility] Neutrophils Absolute 13.08(H) 1.50 - 7.00 K/mcL LAB HEMETOLOGY METHOD 09/15/2024 1:11 PM [facility] Lymphocytes Absolute 2.08 1.00 - 5.00 K/mcL LAB HEMETOLOGY METHOD 09/15/2024 1:11 PM [facility] Monocytes Absolute 1.35(H) 0.20 - 1.00 K/mcL LAB HEMETOLOGY METHOD 09/15/2024 1:11 PM [facility] Eosinophils Absolute 0.50 0.00 - 0.50 K/mcL LAB HEMETOLOGY METHOD 09/15/2024 1:11 PM [facility] Basophils Absolute 0.08 0.00 - 0.20 K/mcL LAB HEMETOLOGY METHOD 09/15/2024 1:11 PM [facility] Immature Granulocytes Absolute 0.14(H) 0.00 - 0.03 K/mcL LAB HEMETOLOGY METHOD 09/15/2024 1:11 PM [facility] Blood Venous blood specimen / Unknown Venipuncture / Unknown 09/15/2024 6:00 AM EST 09/15/2024 10:50 AM EST us Danielito Lang MD LAB BLOOD ORDERABLES Final Result [facility] [address] [place] [address], * (ABNORMAL) Comprehensive metabolic panel (09/15/2024 6:00 AM EST) Sodium 134 133 - 145 mmol/L LAB CHEMISTRY METHOD 09/15/2024 5:29 PM [facility] Potassium 4.4 3.5 - 5.5 mmol/L LAB CHEMISTRY METHOD 09/15/2024 5:29 PM [facility] Chloride 103 96 - 110 mmol/L LAB CHEMISTRY METHOD 09/15/2024 5:29 PM [facility] CO2 26 21 - 32 mmol/L LAB CHEMISTRY METHOD 09/15/2024 5:29 PM [facility] Anion Gap 5 3 - 11 LAB CHEMISTRY METHOD 09/15/2024 5:29 PM [facility] Glucose 82 70 - 100 mg/dL LAB CHEMISTRY METHOD 09/15/2024 5:29 PM [facility] BUN 13 5 - 25 mg/dL LAB CHEMISTRY METHOD 09/15/2024 5:29 PM [facility] Creatinine 0.44(L) 0.50 - 1.10 mg/dL LAB CHEMISTRY METHOD 09/15/2024 5:29 PM [facility] eGFR 97 >=60 mL/min/1. 73m2 LAB CHEMISTRY METHOD 09/15/2024 5:29 PM [facility] Comment:Calculation based on the Chronic Kidney Disease Epidemiology Collaboration (CKD-EPI) equation refit without adjustment for race. BUN/Creatinine Ratio 29.5 LAB CHEMISTRY METHOD 09/15/2024 5:29 PM [facility] Calcium 8.3(L) 8.5 - 10.5 mg/dL LAB CHEMISTRY METHOD 09/15/2024 5:29 PM [facility] AST (SGOT) 58(H) 10 - 42 unit/L LAB CHEMISTRY METHOD 09/15/2024 5:29 PM [facility] ALT (SGPT) 70(H) 10 - 60 unit/L LAB CHEMISTRY METHOD 09/15/2024 5:29 PM [facility] Alkaline Phosphatase 116 42 - 121 unit/L LAB CHEMISTRY METHOD 09/15/2024 5:29 PM [facility] Total Protein 5.4(L) 6.0 - 8.0 g/dL LAB CHEMISTRY METHOD 09/15/2024 5:29 PM [facility] Albumin 2.3(L) 3.2 - 5.0 g/dL LAB CHEMISTRY METHOD 09/15/2024 5:29 PM [facility] Total Bilirubin 1.2 0.0 - 1.4 mg/dL LAB CHEMISTRY METHOD 09/15/2024 5:29 PM [facility] Blood Venous blood specimen / Unknown Venipuncture / Unknown 09/15/2024 6:00 AM EST 09/15/2024 10:50 AM EST us Danielito Lang MD LAB BLOOD ORDERABLES Final Result [facility] [address] [place] [address], documented in this encounter Visit Diagnoses Diagnosis Chronic kidney disease, stage 3 unspecified (CMS/HCC V24, CMS/HCC V28) Anemia, unspecified documented in this encounter Care Teams Heel Brusher Relationship Specialty Start Date End Date Danielito Lang MD [address] [place] [address] PCP - General Internal Medicine 09/15/24 documented as of this encounter
--- OUTSIDE RECORDS SUMMARY | 2025-04-21 12:23 | XMS_ITS | Patient Health Record ---
Author Organization [facility] Address [address] [facility] [address] [place] [address] Care Team Providers Care Child Neurologist Name Role Phone Danielito Lang MD Primary Care Provider Unava Alejandra Flores Unavailable [phone] Allergies Allergen (clinical drug ingredient) Drug/Non Drug [...] Status Risk Notes Problem Vitamin D deficiency (30933259) Vitamin D deficiency, unspecified (E55.9) Active confirmed Problem Obesity (896563019) Obesity, unspecified (E66.9) Active confirmed Problem Hyperlipidemia (21607942) Hyperlipidemia, unspecified (E78.5) Active confirmed Problem Essential hypertension (65513468) Essential (primary) hypertension (I10) Active confirmed Problem Atrial fibrillation (28903592) Unspecified atrial fibrillation (I48.91) Active confirmed Problem Allergic rhinitis (56266400) Allergic rhinitis, unspecified (J30.9) Active confirmed Problem Gastro-esophageal reflux disease without esophagitis (537818171) Gastro-esophageal reflux disease without esophagitis (K21.9) Active confirmed Problem Osteoarthritis (179553660) Unspecified osteoarthritis, unspecified site (M19.90) Active confirmed Problem 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, 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) Active confirmed Problem Chronic kidney disease stage 2 (370798351) Chronic kidney disease, stage 2 (mild) (N18.2) Active confirmed Problem Urinary incontinence (316637894) Unspecified urinary incontinence (R32) Active confirmed Problem Artificial knee joint present (101914030833) Presence of unspecified artificial knee joint (Z96.659) Active confirmed Problem Pressure injury of deep tissue of sacral region of back (disorder) (4257204304649991 08) Pressure injury of deep tissue of sacral region (L89.156) Active confirmed Vital Signs Weight 242.4 lbs 09/14/2024 Weight reflecte d from 09/14/[address] [facility] Encounters Encounter Location Date Provider Diagnosis [address] [place] [address] 09/14/2024 Alejandra Monzon Pressure injury of deep [...] Insured Coverage Start Date Coverage End Date [facility] [address] [place], [place] [id number] [phone] [id number] Mary Cutler Self - patient is the [...]
--- OUTSIDE RECORDS SUMMARY | 2025-04-21 12:23 | XMS_ITS | Encounter Summary ---
Author Organization [facility] Address [address] [place] [address] Care Team Providers Care Fur Remodeler Name Role Phone Danielito Lang MD Primary Care Provider +1- [phone] Encounter Details Date Type Department Care Team (Late st Contact Info) Description 09/19/2024 Lab Requisition [facility] - Main Lab [address] [facility] [place] [address] Danielito Lang MD [address] [place] [address] Anemia, unspecified; Chronic kidney disease, stage 2 [...] mmol/L LAB CHEMISTRY METHOD 09/20/2024 11:52 AM [facility] Potassium 5.2 3.5 - 5.5 mmol/L LAB CHEMISTRY METHOD 09/20/2024 11:52 AM [facility] Chloride 109 96 - 110 mmol/L LAB CHEMISTRY METHOD 09/20/2024 11:52 AM [facility] CO2 26 21 - 32 mmol/L LAB CHEMISTRY METHOD 09/20/2024 11:52 AM [facility] Anion Gap 6 3 - 11 LAB CHEMISTRY METHOD 09/20/2024 11:52 AM [facility] Glucose 76 70 - 100 mg/dL LAB CHEMISTRY METHOD 09/20/2024 11:52 AM [facility] BUN 18 5 - 25 mg/dL LAB CHEMISTRY METHOD 09/20/2024 11:52 AM [facility] Creatinine 0.52 0.50 - 1.10 mg/dL LAB CHEMISTRY METHOD 09/20/2024 11:52 AM [facility] eGFR 93 >=60 mL/min/1. 73m2 LAB CHEMISTRY METHOD 09/20/2024 11:52 AM [facility] Comment:Calculation based on the Chronic Kidney Disease Epidemiology Collaboration (CKD-EPI) equation refit without adjustment for race. BUN/Creatinine Ratio 34.6 LAB CHEMISTRY METHOD 09/20/2024 11:52 AM [facility] Calcium 8.3(L) 8.5 - 10.5 mg/dL LAB CHEMISTRY METHOD 09/20/2024 11:52 AM [facility] Blood Venous blood specimen / Unknown Venipuncture / Unknown 09/20/2024 5:02 AM EST 09/20/2024 10:59 AM EST us Danielito Lang MD LAB BLOOD ORDERABLES Final Result [facility] [address] [place] [address], * (ABNORMAL) Complete blood count (09/20/2024 5:02 AM EST) [facility] Signature WBC 12.9(H) 4.8 - 10.8 K/mcL LAB HEMETOLOGY METHOD 09/20/2024 11:41 AM [facility] RBC 3.00(L) 3.80 - 4.80 M/mcL LAB HEMETOLOGY METHOD 09/20/2024 11:41 AM [facility] Hemoglobin 9.1(L) 11.5 - 16.0 g/dL LAB HEMETOLOGY METHOD 09/20/2024 11:41 AM [facility] Hematocrit 30.1(L) 35.0 - 47.0 % LAB HEMETOLOGY METHOD 09/20/2024 11:41 AM [facility] MCV 101.7(H) 79.0 - 98.0 FL LAB HEMETOLOGY METHOD 09/20/2024 11:41 AM [facility] MCH 30.7 27.0 - 32.0 pcg LAB HEMETOLOGY METHOD 09/20/2024 11:41 AM [facility] MCHC 30.2(L) 32.0 - 37.0 g/dL LAB HEMETOLOGY METHOD 09/20/2024 11:41 AM [facility] RDW 15.1(H) 11.0 - 15.0 % LAB HEMETOLOGY METHOD 09/20/2024 11:41 AM [facility] Platelets 541(H) 130 - 400 K/mcL LAB HEMETOLOGY METHOD 09/20/2024 11:41 AM [facility] MPV 10.4 7.0 - 11.0 FL LAB HEMETOLOGY METHOD 09/20/2024 11:41 AM [facility] NRBC 0.0 <1.0 % LAB HEMETOLOGY METHOD 09/20/2024 11:41 AM EST [facility] NRBC Absolute 0.00 <0.10 K/mcL LAB HEMETOLOGY METHOD 09/20/2024 11:41 AM EST [facility] Blood Venous blood specimen / Unknown Venipuncture / Unknown 09/20/2024 5:02 AM EST 09/20/2024 10:59 AM EST us Danielito Lang MD LAB BLOOD ORDERABLES Final Result [facility] [address] [place] [address], documented in this encounter Visit Diagnoses Diagnosis Anemia, unspecified Chronic kidney disease, stage 2 (mild) documented in this encounter Care Teams Fur Remodeler Relationship Specialty Start Date End Date Danielito Lang MD [address] [place] [address] PCP - General Internal Medicine 09/15/24 documented as of this encounter
== END 2025-04-21 11:46 | disposition home or self-care (01) ==
LOC: HO.HMCC 11:07
PROVIDERS: PCP Internal Medicine; Visit Provider Internal Medicine
DX: I10 Essential (primary) hypertension (principal); I48.91 Unspecified atrial fibrillation; R73.9 Hyperglycemia, unspecified

== ENCOUNTER → 2025-04-21 11:06 | Outpatient (BNVA) | payer MEDICARE, SELFPAY | PROVIDERS: PCP Internal Medicine; Visit Provider Internal Medicine | DX: I10 Essential (primary) hypertension (principal); E78.5 Hyperlipidemia, unspecified; I48.91 Unspecified atrial fibrillation; R73.9 Hyperglycemia, unspecified; Z79.01 Long term (current) use of anticoagulants | CPT/HCPCS: 96127; 99212 ==